=== PATIENT | female | born 1935 | race Caucasian/White ===

== ENCOUNTER → 2017-07-26 | Outpatient (CLI) | payer MEDICARE, OTHER, SELFPAY | PROVIDERS: Visit Provider Family Medicine | DX: Z12.2 Encounter for screening for malignant neoplasm of respiratory organs; Z87.891 Personal history of nicotine dependence ==

== ENCOUNTER → 2017-12-01 13:48 | Outpatient (CLI) | payer MEDICARE, OTHER, SELFPAY ==
--- NOTE | 2017-12-01 13:57 | XR_ITS ---
EXAM: XR thoracic spine 3V HISTORY: ITS.REASON: BILAT BACK PAIN COMPARISON: None FINDINGS: No fracture or dislocation. Mild multilevel degenerative disc disease is present involving the mid thoracic spine with mild kyphosis. Small endplate osteophytes are noted. No lytic or blastic change evident. IMPRESSION: Mild thoracic spondylosis as described above
--- NOTE | 2017-12-01 13:57 | XR_ITS ---
EXAM: XR cervical spine 5V HISTORY: Neck pain ITS.REASON: BILAT BACK PAIN ORDERING PHYSICIAN: Kb Atkins MD PATIENT AGE: 82 years COMPARISON: None FINDINGS: Normal alignment. Degenerative disc disease C4-C5 C5-C6 and C6-C7 greatest at C5-C6. There are age or osteophytes at these levels as well. Mild foraminal narrowing on the left C5-6 and on the right at C4-5 and C5-C6. No fracture or dislocation. No lytic or blastic change. IMPRESSION: Cervical spondylosis with degenerative disc disease from C4 to C6 with mild foraminal narrowing at C5-6 on the left and C4-5 and C5-6 on the right
== END ==
PROVIDERS: PCP Family Medicine; Visit Provider Family Medicine
DX: M54.6 Pain in thoracic spine (principal); M54.2 Cervicalgia
CPT/HCPCS: 72050; 72072

== ENCOUNTER → 2018-08-09 09:36 | Outpatient (CLI) | payer MEDICARE, OTHER, SELFPAY ==
--- NOTE | 2018-08-09 09:41 | XR_ITS ---
XR knee RT 3V HISTORY: ITS.REASON: ACUTE RT KNEE PAIN ORDERING PHYSICIAN: Maria Fernanda Dee MD PATIENT AGE: 83 years COMPARISON: None FINDINGS: No fracture or dislocation. No lytic or blastic change. Normal mineralization. No significant arthritic changes evident. There is increased density in the suprapatellar region consistent with knee joint effusion. No other significant findings IMPRESSION: Suprapatellar effusion otherwise negative right knee
== END ==
PROVIDERS: PCP Family Medicine; Visit Provider Emergency Medicine
DX: M25.561 Pain in right knee (principal)
CPT/HCPCS: 73562

== ENCOUNTER 2018-08-13 09:04 | Observation (INO) ==
--- NOTE | 2018-08-13 09:32 | Emergency Department Note ---
[facility] – [place], [place] Disposition Clinical Impression: Pain Disposition: Still a Patient Condition on Discharge: Good Referrals: Kb Atkins MD [Primary Care Provider] - Medical Decision Making - Medical Records Medical records reviewed: Yes: I reviewed the patient's medical records. - Oscar Inquiry Pt receiving controlled substance: No Oscar was queried for this patient: No Vital Signs: 08/13/18 09:08 08/13/18 09:14 Temperature 97.8 F 97.8 F Temperature Source Oral Oral Pulse Rate [Left Radial] 87 87 Respiratory Rate 20 20 Blood Pressure [Right Arm] 155/65 H 155/65 H Blood Pressure Mean [Right Arm] 95 95 Blood Pressure Source [Right Arm] Automatic Cuff Automatic Cuff Blood Pressure Position [Right Arm] Sitting Sitting 02 Sat by Pulse Oximetry 96 96 Oxygen Delivery Method Room Air Orders (Tests/Meds): ED MEDICATIONS Discontinued Medications Generic Name Dose Route Start Last Admin Trade Name Freq PRN Reason Stop Dose Admin Methylprednisolone Sodium Succinate 60 mg 08/13/18 09:58 08/13/18 10:11 Solu-Medrol 125mg/2ml Vial IM 08/13/18 09:59 60 mg ONCE ONE Administration ORDERS Category Date Time Status XR lumbar spine min 4V Stat Exams 08/13/18 09:27 Taken - Reevaluation(s) Time: 09:35 Reevaluation #1: Patient initially was refusing xrays and requesting muscle relaxer shot and pain shot, patient educated that we needed lumbar xray due to location of pain and age to inspect rule out compression fracture in lumbar region. Patient finally agreed to have xray. Patient reports that she is not able to take Ibuprofen and allergic to Orphenadrine. State that she seen Dr Potts on Tuesday and had multiple xrays done and a cortisone shot in her knee and then this pain started after her appointment with him Denies falling, denies known injury consulted with Dr Sinclair and he advised get lumbar xray and give 60mg of SoluMedrol and he would come to [facility] and see patient Time: 09:40 Reevaluation #3: Daughter accompanied patient cursing at staff and yelling at mother Daughter demanding Lortab or other medication for her mother Advised her again that ER physician was coming to see patient after she returned for xray and then order m edication as appropriate. Daughter still yelling and cursing awaiting patient to return from xray and Dr Sinclair to check patient Time reevaluation 3: 10:19 Reevaluation #2: Patient was given Steroid injection as recommended by Dr Sinclair, and he is at bedside, patient crying and saying her leg hurts worse therefore he elected to have patient transferred to ER for further treatment and evaluation for pain [facility] – [place], [place] HPI - General Stated complaint: back drawing Time Seen by Provider: 08/13/18 09:29 Mode of Arrival: Wheelchair Source of Information: Relative Limitations: Physical Limitations Description of Symptoms (Recalled from Triage Doc. by RN): Patient reports that she was working in the yard and now her back is hurting her. HEENT Symptoms (Recalled from RN notes): No Resp Symptoms (Recalled from RN notes): No Skin Symptoms (Recalled from RN notes): No MS Symptoms (Recalled from RN notes): Yes (back pain that radiates down her leg) Functional Status (Recalled from RN notes): f/a - History of Present Illness Provider Complaint: Patient states that she was outside working in the yard and then she started having pain in her buttock area that radiates down into her upper leg State that "feels like a muscle spasm" and feels like when it hits it draws her left leg up. State that she has been having this pain for about 4 days now State that pain is worse when she sits on that side or moves that leg Denies falling, denies known injury has history of back pain and sciatica - Related Data Home Medications Medication Instructions Recorded Confirmed Digoxin [Digitek] 125 mcg PO DAILY 04/22/18 04/22/18 Gabapentin [Gabapentin 100mg Cap] 100 mg PO BID 04/22/18 04/22/18 Glimepiride [Amaryl 2mg tablet] 2 mg PO DAILY 04/22/18 04/22/18 Rivaroxaban [Xarelto] 20 mg PO DAILY 04/22/18 04/22/18 Sitagliptin Phosphate [Januvia] 100 mg PO DAILY 04/22/18 04/22/18 Methocarbamol [Robaxin 750mg Tab] 750 mg PO BID 08/13/18 Allergies Allergy/AdvReac Type Severity Reaction Status Date / Time orphenadrine [From NORFLEX] Allergy Unknown Verified 04/22/18 10:58 tetanus toxoid, adsorbed Allergy Unknown Verified 04/22/18 10:58 [TETANUS TOXOID, ADSORBED] - Worker's Comp Is this a Worker's Comp case?: No [facility] History I have reviewed the patient's past medical history: Yes Medical History: Reports:: Diabetes Mellitus Type 2 Denies:: Diabetes Mellitus Type 1 - Social History Smoking Status: Current every day smoker Tobacco Type: cigarettes Alcohol Intake: never - Psychiatric History Expresses thoughts of harming self/others: None Suicide Plan Description: No Plan ROS Obtained: Yes All systems reviewed & no additional complaints, Yes Systems reviewed as appropriate & no additional complaints - Musculoskeletal Comments: Pain on left side of buttock that radiates down left leg, reports spasmic like pain and when it starts feels like it "draws" her leg up - Allergic/Immunologic Comments: Pain in left hip area that radiates down into her left upper leg and feels "spasmic" denies bowel or bladder involvement Physical Exam - General General appearance: alert, in no apparent distress - Respiratory Respiratory exam: Present: normal lung sounds bilaterally. Absent: respiratory distress - Cardiovascular Cardiovascular exam: Present: regular rate, normal rhythm. Absent: JVD - Abdominal Exam Abdominal exam: Present: soft, normal bowel sounds. Absent: distention, tenderness, guarding - Back Exam Back exam: Present: muscle spasm, sciatic notch tenderness (L) Back 1 view image: 1 - Reports spasm like pain in her left buttock area that radiates down leg, denies issues with bowel or bladder, reports history of sciatica pain Comment: Patient denies injury, describes pain as spasm like pain in left buttock area that radiates down left leg, pain worsened with movement, sitting or laying on that side. Patient started after she worked in her yard 4 days ago - Neurological Exam Neurological exam: Present: alert, oriented X3
--- NOTE | 2018-08-13 10:28 | Emergency Department Note ---
ED Disposition Clinical Impression: Pain, DJD (degenerative joint disease), lumbar, Sciatica, Leucocytosis, UTI (urinary tract infection) Disposition: Still a Patient Condition on Discharge: Fair Referrals: Kb Atkins MD [Primary Care Provider] - - Critical Care Critical Care Time: No Attestation: On 08/13/18, the high probability of a clinically significant, sudden or life threatening deterioration of the following system(s) required my full and direct attention, intervention and personal management. The time I documented below is in addition to time spent performing reported procedures but includes the following listed in this critical care notation. Medical Decision Making - Oscar Inquiry Pt receiving controlled substance: No Oscar was queried for this patient: No Vital Signs: 08/13/18 09:08 08/13/18 09:14 08/13/18 10:22 Temperature 97.8 F 97.8 F 98.8 F Temperature Source Oral Oral Oral Pulse Rate [Left Radial] 87 87 86 Respiratory Rate 20 20 20 Blood Pressure [Right Arm] 155/65 H 155/65 H 174/86 H Blood Pressure Mean [Right Arm] 95 95 115 Blood Pressure Source [Right Arm] Automatic Cuff Automatic Cuff Automatic Cuff Blood Pressure Position [Right Arm] Sitting Sitting Sitting 02 Sat by Pulse Oximetry 96 96 97 Oxygen Delivery Method Room Air Room Air 08/13/18 11:32 Temperature Temperature Source Pulse Rate [Left Radial] 81 Respiratory Rate Blood Pressure [Right Arm] 155/80 H Blood Pressure Mean [Right Arm] 105 Blood Pressure Source [Right Arm] Automatic Cuff Blood Pressure Position [Right Arm] Supine 02 Sat by Pulse Oximetry 96 Oxygen Delivery Method Room Air - Lab Data Lab Results 08/13/18 10:35: WBC 15.1 H, RBC 4.57, Hgb 13.2, Hct 41.6, MCV 91.0, MCH 28.9, MCHC 31.8, RDW 14.3, Plt Count 319, MPV 7.0 L, Neut % (Auto) 55.3, Lymph % (Auto) 34.4, Bullock % (Auto) 8.4, Eos % (Auto) 1.3, Baso % (Auto) 0.6, Neut # (Auto) 8.3 H, Lymph # (Auto) 5.2 H, Bullock # (Auto) 1.3 H, Eos # (Auto) 0.2, Baso # (Auto) 0.1, Total Counted 100, Neutrophils % (Manual) 51, Lymphocytes % (Manual) 35, Monocytes % (Manual) 13 H, Eosinophils % (Manual) 1, Platelet Estimate Normal, RBC Morphology Normal 08/13/18 10:35: PT 9.9, INR 0.96, APTT 24.2 08/13/18 10:35: Sodium 139, Potassium 4.3, Chloride 103, Carbon Dioxide 26, Anion Gap 14.3, BUN 19 H, Creatinine 0.74, Estimated Creat Clear 35, Estimated GFR 75, Est GFR ( Amer) 91, Glucose 214 H, Calcium 9.3, Total Bilirubin 0.4, AST 11 L, ALT 19, Alkaline Phosphatase 82, Total Protein 7.9, Albumin 3.7, Globulin 4.2 H, Albumin/Globulin Ratio 0.9 L, Digoxin < 0.20 L 08/13/18 11:25: Urine Color Yellow, Urine Appearance Sl cloudy, Urine pH 6.0, Ur Specific [place] 1.020, Urine Protein Negative, Urine Glucose (UA) 1+, Urine Ketones Negative, Urine Blood 2+, Urine Nitrate Negative, Urine Bilirubin Negative, Urine Urobilinogen 0.2, Ur Leukocyte Esterase 1+ A, Urine RBC 10-20, Urine WBC 5-10, Ur Squamous Epith Cells 10-20, Urine Bacteria 2+ Result diagrams: 08/13/18 10:35 08/13/18 10:35 Orders (Tests/Meds): ED MEDICATIONS Discontinued Medications Generic Name Dose Route Start Last Admin Trade Name Cecilia PRN Reason Stop Dose Admin Methylprednisolone Sodium Succinate 60 mg 08/13/18 09:58 08/13/18 10:11 Solu-Medrol 125mg/2ml Vial IM 08/13/18 09:59 60 mg ONCE ONE Administration Morphine Sulfate 1 mg 08/13/18 10:28 08/13/18 11:18 Morphine 2mg/Ml Syringe IV 08/13/18 10:29 1 mg ONCE ONE Administration Morphine Sulfate 1 mg 08/13/18 11:14 08/13/18 10:35 Morphine 2mg/Ml Syringe IV 08/13/18 11:15 1 mg ONCE ONE Administration Ondansetron HCl 4 mg 08/13/18 11:14 08/13/18 10:35 Zofran 4mg/2ml Vial IV 08/13/18 11:15 4 mg ONCE ONE Administration ORDERS Category Date Time Status UA [Urinalysis and Microscopic] Stat Lab 08/13/18 11:25 Ordered Urine Culture Stat Micro 08/13/18 11:25 Received - Radiology Data #1 Image(s): L-Spine Image Reviewed: Yes I reviewed the patient's radiology image Preliminary Findings: Abnormal Luminary x-ray of the lumbar spine: DJD postop changes no acute fracture. final read below: IMPRESSION: No acute findings lumbar spine. Vertebral bodies intact Mild degenerative changes: Borderline/Mild disc space narrowing posteriorly at L2/3. It Moderate facet hypertrophy L5/S1 and less evident L4/5 Calcifications at the superior medial aspect right kidney most likely vascular. Doubt difficult to exclude tiny renal calculi here . Medical Decision Narrative: I reviewed the patient's x-ray report. White count is elevated with no shift. Her urine is positive for UTI addition to most recent steroid injection. The patient continues to complain of pain despite of receiving morphine. Her daught er informed me that she had past medical history of opiate dependence. 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 I discussed this complicated past medical history with Dr. jefferson who is on-call for Dr. Atkins. We agreed to admit the patient for IV steroids and intermit tent use of morphine for pain control. Start on IV antibiotics for a UTI. Repeat labs in the morning and consult Dr. Garcia the pain specialist. Back Pain HPI - General Stated Complaint: back drawing Time Seen by Provider: 08/13/18 09:29 Mode of Arrival: Wheelchair Source of Information: Relative Limitations: Physical Limitations Description of Symptoms (Recalled from ER Triage Doc. by RN): Patient reports that she was working in the yard and now her back is hurting her. - History of Present Illness HPI Narrative: 83 years old white female smoker with history of multiple medical problems including cervical cancer that was removed in 2007. Gallbladder removal with complications including atrial fibrillation's diabetes mellitus currently on anticoagulations alert to and oral hypoglycemic medication. She uses digoxin. The patient had prior low back injury 1960s. 4 days ago she was working in her flower bed digging with a shovel "although she was told by her daughter not to do so" due to prior pack issues. Since then she has been experiencing sharp lower back pain radiating to the left buttock and into the left thigh above the knee. There is no numbness no tingling no weakness no loss of urine or bowel control. Patient has multiple allergies ca nnot use ibuprofen pain progressively gotten worse unable to walk because of pain so she was brought by her daughter to the ED. initially she refused x-ray but eventually we obtained an x-ray of the lumbar spine with no acute findings, she has DJD atherosclerosis and postop changes. She received Solu-Medrol injection in the left buttock with worsening of her pain. She was moved from the urgent care to the ED for better pain control. Examination in the ER revealed no weakness no loss of sensations strong bilateral dorsalis pedis pulsation and femoral pulsations equal symmetrical. MD Complaint: back pain Onset (ago): day(s) (4 days.) Duration: constant Similar Symptoms Previously: Yes Location: lumbar spine Severity: severe Quality: sharp Radiation: left leg Severity scale (1-10): 10 Relieving factors: immobilization Exacerbating factors: movement Context: other (While gardening. ) Associated symptoms: denies other symptoms Pertinent Issues R/T Back Pain: Cancer, Prior Trauma Treatments prior to arrival: acetaminophen - Related Data Home Medications Medication Instructions Recorded Confirmed Digoxin [Digitek] 125 mcg PO DAILY 04/22/18 08/13/18 Gabapentin [Gabapentin 100mg Cap] 100 mg PO BID 04/22/18 08/13/18 Glimepiride [Amaryl 2mg tablet] 2 mg PO DAILY 04/22/18 08/13/18 Rivaroxaban [Xarelto] 20 mg PO DAILY 04/22/18 08/13/18 Sitagliptin Phosphate [Januvia] 100 mg PO DAILY 04/22/18 08/13/18 Methocarbamol [Robaxin 750mg Tab] 750 mg PO BID 08/13/18 08/13/18 Allergies Allergy/AdvReac Type Severity Reaction Status Date / Time orphenadrine [From NORFLEX] Allergy Unknown Verified 04/22/18 10:58 tetanus toxoid, adsorbed Allergy Unknown Verified 04/22/18 10:58 [TETANUS TOXOID, ADSORBED] [facility] History I have reviewed the patient's past medical history: Yes Medical History: Reports:: Diabetes Mellitus Type 2 Denies:: Diabetes Mellitus Type 1 - Social History Smoking Status: Current every day smoker Tobacco Type: cigarettes Alcohol Intake: never - Psychiatric History Expresses thoughts of harming self/others: None Suicide Plan Description: No Plan ROS Obtained: Yes All systems reviewed & no additional complaints Physical Exam - General General appearance: alert, in no apparent distress - Head Head exam: atraumatic, normocephalic, normal inspection - Eye Eye exam: Present: normal appearance, PERRL, EOMI. Absent: scleral icterus, nystagmus, miosis - Neck Neck exam: Present: normal inspection, full ROM, trachea midline. Absent: meningismus, lymphadenopathy - Chest Chest inspection: Present: normal inspection, symmetric chest wall rise. Absent: tenderness - Respiratory Respiratory exam: Present: normal lung sounds bilaterally. Absent: respiratory distress - Cardiovascular Cardiovascular exam: Present: regular rate, normal rhythm, normal heart sounds. Absent: JVD - Abdominal Exam Abdominal exam: Present: soft, normal bowel sounds, other (Strong bilateral equal symmetrical femoral pulse.). Absent: distention, tenderness, guarding, rebound, rigidity, Collins's sign, tenderness at McBurney's Point - External exam: Present: normal external exam - Extremities Exam Extremities exam: Present: normal inspection, full ROM, normal capillary refill. Absent: calf tenderness - Back Exam Back exam: Present: normal inspection. Absent: tenderness, CVA tenderness (R), CVA tenderness (L) - Neurological Exam Neurological exam: Present: alert, oriented X3, CN II-XII intact, motor sensory deficit, reflexes normal - Psychiatric Psychiatric exam: Present: normal affect, normal mood - Skin Skin exam: Present: warm, dry, intact, normal color - Lymphatic Lymphatic Findings: no adenopathy
[2018-08-13 10:51] LABS: Basophils # 0.1 K/mm3 (0-0.2); Basophils % 0.6 % (0.1-2.0); Eosinophils # 0.2 K/mm3 (0.0-0.4); Eosinophils % 1.3 % (0.1-12.0); Hematocrit 41.6 % (37.0-47.0); Hemoglobin 13.2 g/dL (12.2-16.2); Lymphocytes # 5.2 K/mm3 (0.7-4.5); Lymphocytes % 34.4 K/mm3 (10-50); Mean Corpuscular HGB Conc 31.8 g/dL (31.8-35.4); Mean Corpuscular Hemoglobin 28.9 pg (27.0-31.2); Monocytes # 1.3 K/mm3 (0.1-1.0); Monocytes % 8.4 % (1.7-9.3); Neutrophils # 8.3 K/mm3 (1.8-7.8); Neutrophils % 55.3 % (37.0-80.0); Platelet Count 319 K/mm3 (142-424); Red Blood Count 4.57 M/mm3 (4.20-5.40); Red Cell Distribution Width 14.3 % (11.5-17.5); White Blood Count 15.1 K/mm3 (4.8-10.8)
[2018-08-13 10:57] LABS: Activated Partial Thrombo Time 24.2 seconds (23.6-34.0); INR 0.96 (0.9-1.1); Prothrombin Time 9.9 seconds (9.4-11.8)
[2018-08-13 11:06] LABS: Alanine Aminotransferase 19 U/L (12-78); Albumin Level 3.7 gm/dL (3.4-5.0); Albumin/Globulin Ratio 0.9 (1.1-1.8); Alkaline Phosphatase 82 U/L (46-116); Anion Gap 14.3 mEq/L (5-15); Aspartate Amino Transferase 11 U/L (15-37); Bilirubin,Total 0.4 mg/dL (0.2-1.0); Blood Urea Nitrogen 19 mg/dL (7-18); Calcium 9.3 mg/dL (8.5-10.1); Carbon Dioxide 26 mmol/L (21.0-32.0); Chloride 103 mmol/L (98-107); Eosinophils % 1 % (0-3); Globulin 4.2 gm/dl (1.3-3.2); Glucose 214 mg/dL (74-106); Lymphocytes % 35 % (10-50); Monocytes % 13 % (2-9); Neutrophils % 51 % (42-76); Potassium 4.3 mmoL/L (3.5-5.1); RBC Morphology Normal; Sodium 139 mmol/L (136-145); Total Cells Counted 100; Total Protein,Serum 7.9 gm/dL (6.4-8.2)
[2018-08-13 11:08] LABS: Digoxin < 0.20 ng/mL (1.15-2.56)
[2018-08-13 11:34] LABS: Microscopic, Urine URINE MICROSCOPIC (MICROSCOPIC)
[2018-08-13 11:36] LABS: Appearance,Urine SL CLOUDY (Clear); Bilirubin,Urine Negative (Negative); Blood, Urine 2+ (Negative); Color,Urine YELLOW (Yellow); Glucose,Urine (UA) 1+ (Negative); Ketones,Urine Negative (Negative); Leukocyte Esterase,Urine 1+ (Negative); Protein,Urine Negative (Negative); Urobilinogen,Urine 0.2 EU/dl (0.2)
[2018-08-13 11:46] LABS: Bacteria,Urine 2+ /lpf
--- NOTE | 2018-08-13 13:25 | Pharmacy Consult Notes ---
[facility] Pharmacy VTE Monitoring - Patient Demographics Admission date: 08/13/18 Report Date: 08/13/18 Time: 13:24 Allergies/Adverse Reactions: Patient Allergies orphenadrine [From NORFLEX] Allergy (Unknown, Verified 04/22/18 10:58) tetanus toxoid, adsorbed [TETANUS TOXOID, ADSORBED] Allergy (Unknown, Verified 04/22/18 10:58) Height: 1.57 m Weight: 51.766 kg Patient Problems: Current Active Problems Pain (Acute) DJD (degenerative joint disease), lumbar (Acute) Sciatica (Acute) Leucocytosis (Acute) UTI (urinary tract infection) (Acute) - VTE Risk Labs: VTE Related Lab Results Hgb 13.2 g/dL (12.2-16.2) 08/13/18 10:35 Hct 41.6 % (37.0-47.0) 08/13/18 10:35 Plt Count 319 K/mm3 (142-424) 08/13/18 10:35 PT 9.9 seconds (9.4-11.8) 08/13/18 10:35 INR 0.96 (0.9-1.1) 08/13/18 10:35 APTT 24.2 seconds (23.6-34.0) 08/13/18 10:35 BUN 19 mg/dL (7-18) H 08/13/18 10:35 Creatinine 0.74 mg/dL (0.55-1.02) 08/13/18 10:35 Estimated Creat Clear 35 mL/min (0-300) 08/13/18 10:35 VTE Score: 4 VTE Risk Level: Low Risk Clinical Trial Participant: No - Prophylaxis VTE Prophylaxis Ordered?: Yes Types of VTE Prophylaxis: TEDS Knee High
[2018-08-14 07:06] LABS: Basophils % 0.1 % (0.1-2.0); Eosinophils % 0.1 % (0.1-12.0); Hematocrit 38.1 % (37.0-47.0); Hemoglobin 12.2 g/dL (12.2-16.2); Lymphocytes # 2.4 K/mm3 (0.7-4.5); Lymphocytes % 18.9 K/mm3 (10-50); Mean Corpuscular HGB Conc 32.1 g/dL (31.8-35.4); Mean Corpuscular Hemoglobin 28.9 pg (27.0-31.2); Mean Corpuscular Volume 90.1 fl (81-99); Mean Platelet Volume 7.4 fl (7.4-10.4); Monocytes # 0.9 K/mm3 (0.1-1.0); Monocytes % 6.6 % (1.7-9.3); Neutrophils # 9.6 K/mm3 (1.8-7.8); Neutrophils % 74.4 % (37.0-80.0); Platelet Count 312 K/mm3 (142-424); Red Blood Count 4.23 M/mm3 (4.20-5.40); Red Cell Distribution Width 14.1 % (11.5-17.5); White Blood Count 12.9 K/mm3 (4.8-10.8)
[2018-08-14 07:17] LABS: Anion Gap 14.1 mEq/L (5-15); Calcium 9.3 mg/dL (8.5-10.1); Potassium 4.1 mmoL/L (3.5-5.1)
--- NOTE | 2018-08-14 09:13 | H&P/Discharge Summary ---
<Collette Clarke - Last Filed: 08/14/18 09:06> General - General Admission date:: 08/13/18 Discharge date: 08/14/18 *Admission Date: 08/13/18 *Chief complaint: Back pain *History of present illness: Ms. Wellington is an 83-year-old female patient of Dr. Valadez who presented to the emergency room with severe back pain. She has a history of low back pain, endometrial cancer, tobacco abuse, COPD, and type 2 diabetes mellitus. Patient states that she worked in her yard last week after which her back did began to hurt. Her pain increased to the point yesterday she came to the emergency room. She was unable to move or walk because the pain was so severe. Patient has been voiding without difficulties and has some hematuria. She denies fever, nausea and vomiting and has been eating as usual. This a.m. at time of exam patient states she is just sore but has no further pain. She is eating her breakfast. She has walked to the bathroom. [facility] History Medical History: Reports:: Atrial Fibrillation, Cancer, Chronic Obstructive Pulmonary Disease (COPD), Cerebrovascular Accident, Diabetes Mellitus Type 2, Hypertension Denies:: Diabetes Mellitus Type 1, MRSA Other Medical History: Reports: Arthritis Laterality Cases: Right: Other Other Surgeries: Yes: Cholecystectomy (With small bowel resection.), Hysterectomy-Total Amputation: No Comment: Hemorrhoidectomy 1972; right rotator cuff surgery 2009; left knee scope 2010; - *Social History Educational Level: Attended High School Smoking Status: Current every day smoker Tobacco Type: cigarettes #Yrs smoked (if former smoker): 61 Alcohol Intake: never Occupational Status: retired Housing: house Household Members: none - Psychiatric History Expresses thoughts of harming self/others: None Suicide Plan Description: No Plan *Family Hx:: Coronary Artery Disease, Diabetes, Heart Attack, Hypertension Review of Systems - Constitutional Denies body ache(s), Denies lack of energy - ENT Denies ear pain, Denies sore throat - *Cardiovascular Denies chest pain, Denies rapid, pounding, or irregular heartbeat - *Respiratory Denies chest congestion, Denies cough - *Gastrointestinal Reports constipation, Denies abdominal pain, Denies change in bowel habits - *Genitourinary Reports blood in urine, Denies painful urination - *Musculoskeletal Denies abnormal walking - *Neurologic Denies behavioral changes, Denies confusion, Denies headache(s) Exam Vital signs and Labs for Last 24 Hours: Temp Pulse Resp BP Pulse Ox 98.3 F 81 18 119/50 L 96 08/14/18 08:00 08/14/18 08:00 08/14/18 08:00 08/14/18 08:00 08/14/18 08:00 Laboratory Results - last 24 hr 08/13/18 10:35: WBC 15.1 H, RBC 4.57, Hgb 13.2, Hct 41.6, MCV 91.0, MCH 28.9, MCHC 31.8, RDW 14.3, Plt Count 319, MPV 7.0 L, Neut % (Auto) 55.3, Lymph % (Auto) 34.4, [place] % (Auto) 8.4, Eos % (Auto) 1.3, Baso % (Auto) 0.6, Neut # (Auto) 8.3 H, Lymph # (Auto) 5.2 H, [place] # (Auto) 1.3 H, Eos # (Auto) 0.2, Baso # (Auto) 0.1, Total Counted 100, Neutrophils % (Manual) 51, Lymphocytes % (Manual) 35, Monocytes % (Manual) 13 H, Eosinophils % (Manual) 1, Platelet Estimate Normal, RBC Morphology Normal 08/13/18 10:35: PT 9.9, INR 0.96, APTT 24.2 08/13/18 10:35: Sodium 139, Potassium 4.3, Chloride 103, Carbon Dioxide 26, Anion Gap 14.3, BUN 19 H, Creatinine 0.74, Estimated Creat Clear 35, Estimated GFR 75, Est GFR ( Amer) 91, Glucose 214 H, Calcium 9.3, Total Bilirubin 0.4, AST 11 L, ALT 19, Alkaline Phosphatase 82, Total Protein 7.9, Albumin 3.7, Globulin 4.2 H, Albumin/Globulin Ratio 0.9 L, Digoxin < 0.20 L 08/13/18 11:25: Urine Color Yellow, Urine Appearance Sl cloudy, Urine pH 6.0, Ur Specific [place] 1.020, Urine Protein Negative, Urine Glucose (UA) 1+, Urine Ketones Negative, Urine Blood 2+, Urine Nitrate Negative, Urine Bilirubin Negative, Urine Urobilinogen 0.2, Ur Leukocyte Esterase 1+ A, Urine RBC 10-20, Urine WBC 5-10, Ur Squamous Epith Cells 10-20, Urine Bacteria 2+ 08/13/18 21:09: POC Glucose 288 H 08/14/18 06:11: WBC 12.9 H, RBC 4.23, Hgb 12.2, Hct 38.1, MCV 90.1, MCH 28.9, MCHC 32.1, RDW 14.1, Plt Count 312, MPV 7.4, Neut % (Auto) 74.4, Lymph % (Auto) 18.9, [place] % (Auto) 6.6, Eos % (Auto) 0.1, Baso % (Auto) 0.1, Neut # (Auto) 9.6 H, Lymph # (Auto) 2.4, [place] # (Auto) 0.9, Eos # (Auto) 0.0, Baso # (Auto) 0.0 08/14/18 06:11: Sodium 139, Potassium 4.1, Chloride 104, Carbon Dioxide 25, Anion Gap 14.1, BUN 21 H, Creatinine 0.79, Estimated Creat Clear 36, Estimated GFR 70, Est GFR ( Amer) 85, Glucose 198 H, Calcium 9.3 08/14/18 06:26: POC Glucose 183 H I & O for Last 24 hours: Intake & Output 08/11/18 08/12/18 08/13/18 08/14/18 11:59 11:59 11:59 11:59 Intake Total Output Total 400 / 400 Balance -390 / -390 Weight 112 lb 114 lb 2 oz Microbiology Reports for the Last 24 Hours: Microbiology 08/13/18 11:25 Urine,Clean Catch Urine Culture - Preliminary Radiology Reports for the Last 24 Hours: 08/13/2018 x-ray of lumbosacral area IMPRESSION: No acute findings lumbar spine. Vertebral bodies intact Mild degenerative changes: Borderline/Mild disc space narrowing posteriorly at L2/3. It Moderate facet hypertrophy L5/S1 and less evident L4/5 Calcifications at the superior medial aspect right kidney most likely vascular. Doubt difficult to exclude tiny renal calculi here . - Constitutional no acute distress Comments: Lying comfortable in the bed - *Routine HEENT Exam Head: Present: normocephalic, atraumatic Eye: Present: PERRL. Absent: conjunctival icterus, scleral injection ENT: Present: mucous membranes moist, oropharynx clear - *Routine Neck Exam Present: supple. Absent: carotid bruit, lymphadenopathy, thyromegaly - *Routine Respiratory Exam Comments: Rare wheeze - *Routine Cardiovascular Exam Present: RRR - *Routine Abdominal Exam Present: soft, normoactive bowel sounds. Absent: tenderness, distended, guarding - *Routine Extremities Exam Absent: edema, calf tenderness - Routine Back/Spine/Pelvis Exam Back/Spine: Absent: CVA tenderness, paraspinal tenderness, vertebral tenderness, muscle spasm Hospital Course Hospital Course: After being started on steroids and morphine the pain subsided with remaining soreness. The morning for admission she was able to eat, walk to the bathroom without problems, and move without difficulty. She was found to have a urinary tract infection and will be started on antibiotics for this. Patient was stable to be discharged home. She will be treated on antibiotic and pain medicine. Follow-up will be with Dr. Atkins. Results Labs on day of discharge: Labs from last 24 hours 08/14/18 08/14/18 08/14/18 06:26 06:11 06:11 WBC 12.9 H RBC 4.23 Hgb 12.2 Hct 38.1 MCV 90.1 MCH 28.9 MCHC 32.1 RDW 14.1 Plt Count 312 MPV 7.4 Neut % (Auto) 74.4 Lymph % (Auto) 18.9 [place] % (Auto) 6.6 Eos % (Auto) 0.1 Baso % (Auto) 0.1 Neut # (Auto) 9.6 H Lymph # (Auto) 2.4 [place] # (Auto) 0.9 Eos # (Auto) 0.0 Baso # (Auto) 0.0 Total Counted Neutrophils % (Manual) Lymphocytes % (Manual) Monocytes % (Manual) Eosinophils % (Manual) Platelet Estimate RBC Morphology PT INR APTT Sodium 139 Potassium 4.1 Chloride 104 Carbon Dioxide 25 Anion Gap 14.1 BUN 21 H Creatinine 0.79 Estimated Creat Clear 36 Estimated GFR 70 Est GFR ( Amer) 85 Glucose 198 H POC Glucose 183 H Calcium 9.3 Total Bilirubin AST ALT Alkaline Phosphatase Total Protein Albumin Globulin Albumin/Globulin Ratio Urine Color Urine Appearance Urine pH Ur Specific [place] Urine Protein Urine Glucose (UA) Urine Ketones Urine Blood Urine Nitrate Urine Bilirubin Urine Urobilinogen Ur Leukocyte Esterase Urine RBC Urine WBC Ur Squamous Epith Cells Urine Bacteria Digoxin 08/13/18 08/13/18 08/13/18 21:09 11:25 10:35 WBC RBC Hgb Hct MCV MCH MCHC RDW Plt Count MPV Neut % (Auto) Lymph % (Auto) [place] % (Auto) Eos % (Auto) Baso % (Auto) Neut # (Auto) Lymph # (Auto) [place] # (Auto) Eos # (Auto) Baso # (Auto) Total Counted Neutrophils % (Manual) Lymphocytes % (Manual) Monocytes % (Manual) Eosinophils % (Manual) Platelet Estimate RBC Morphology PT INR APTT Sodium 139 Potassium 4.3 Chloride 103 Carbon Dioxide 26 Anion Gap 14.3 BUN 19 H Creatinine 0.74 Estimated Creat Clear 35 Estimated GFR 75 Est GFR ( Amer) 91 Glucose 214 H POC Glucose 288 H Calcium 9.3 Total Bilirubin 0.4 AST 11 L ALT 19 Alkaline Phosphatase 82 Total Protein 7.9 Albumin 3.7 Globulin 4.2 H Albumin/Globulin Ratio 0.9 L Urine Color Yellow Urine Appearance Sl cloudy Urine pH 6.0 Ur Specific [place] 1.020 Urine Protein Negative Urine Glucose (UA) 1+ Urine Ketones Negative Urine Blood 2+ Urine Nitrate Negative Urine Bilirubin Negative Urine Urobilinogen 0.2 Ur Leukocyte Esterase 1+ A Urine RBC 10-20 Urine WBC 5-10 Ur Squamous Epith Cells 10-20 Urine Bacteria 2+ Digoxin < 0.20 L 08/13/18 08/13/18 10:35 10:35 WBC 15.1 H RBC 4.57 Hgb 13.2 Hct 41.6 MCV 91.0 MCH 28.9 MCHC 31.8 RDW 14.3 Plt Count 319 MPV 7.0 L Neut % (Auto) 55.3 Lymph % (Auto) 34.4 [place] % (Auto) 8.4 Eos % (Auto) 1.3 Baso % (Auto) 0.6 Neut # (Auto) 8.3 H Lymph # (Auto) 5.2 H [place] # (Auto) 1.3 H Eos # (Auto) 0.2 Baso # (Auto) 0.1 Total Counted 100 Neutrophils % (Manual) 51 Lymphocytes % (Manual) 35 Monocytes % (Manual) 13 H Eosinophils % (Manual) 1 Platelet Estimate Normal RBC Morphology Normal PT 9.9 INR 0.96 APTT 24.2 Sodium Potassium Chloride Carbon Dioxide Anion Gap BUN Creatinine Estimated Creat Clear Estimated GFR Est GFR ( Amer) Glucose POC Glucose Calcium Total Bilirubin AST ALT Alkaline Phosphatase Total Protein Albumin Globulin Albumin/Globulin Ratio Urine Color Urine Appearance Urine pH Ur Specific [place] Urine Protein Urine Glucose (UA) Urine Ketones Urine Blood Urine Nitrate Urine Bilirubin Urine Urobilinogen Ur Leukocyte Esterase Urine RBC Urine WBC Ur Squamous Epith Cells Urine Bacteria Digoxin Preliminary micro results at discharge 08/13/18 11:25 Urine Culture - Preliminary Urine,Clean Catch DS: Diagnosis - Discharge Diagnosis (1) Severe low back pain Status: Acute (2) DJD (degenerative joint disease), lumbar Status: Chronic (3) Sciatica Status: Acute (4) UTI (urinary tract infection) Status: Acute Discharge Medications - Medications for Discharge Home Medication List at Discharge: New RX: Tramadol HCl [Ultram 50mg tablet] 50 mg PO Q6HP PRN #12 tab PRN Reason: Moderate To Severe Pain Ciprofloxacin HCl [Cipro 250mg Tab] 250 mg PO BID #14 tab RX: predniSONE [Deltasone 20mg tablet] 20 mg PO BID #10 tab Continue RX: Sitagliptin Phosphate [Januvia 100mg tablet] 100 mg PO DAILY RX: Rivaroxaban [Xarelto 20mg Tablet] 20 mg PO DAILY RX: Glimepiride [Amaryl 2mg tablet] 2 mg PO DAILY RX: Gabapentin [Gabapentin 100mg Cap] 200 mg PO BID RX: Digoxin [Digitek] 125 mcg PO DAILY RX: Methocarbamol [Robaxin 750mg Tab] 750 mg PO BID RX: dilTIAZem HCl [Diltiazem 240mg 24Hr ER Cap] 240 mg PO DAILY RX: Citalopram Hydrobromide [Citalopram HBr] 20 mg PO DAILY Disposition Disposition: Home, Self-Care <Kb Atkins - Last Filed: 08/14/18 12:18> General - General Admission date:: 08/13/18 Exam Vital signs and Labs for Last 24 Hours: Temp Pulse Resp BP Pulse Ox 98.3 F 81 18 119/50 L 96 08/14/18 08:00 08/14/18 09:41 08/14/18 08:00 08/14/18 08:00 08/14/18 08:00 Laboratory Results - last 24 hr 08/13/18 21:09: POC Glucose 288 H 08/14/18 06:11: WBC 12.9 H, RBC 4.23, Hgb 12.2, Hct 38.1, MCV 90.1, MCH 28.9, MCHC 32.1, RDW 14.1, Plt Count 312, MPV 7.4, Neut % (Auto) 74.4, Lymph % (Auto) 18.9, [place] % (Auto) 6.6, Eos % (Auto) 0.1, Baso % (Auto) 0.1, Neut # (Auto) 9.6 H, Lymph # (Auto) 2.4, [place] # (Auto) 0.9, Eos # (Auto) 0.0, Baso # (Auto) 0.0 08/14/18 06:11: Sodium 139, Potassium 4.1, Chloride 104, Carbon Dioxide 25, Anion Gap 14.1, BUN 21 H, Creatinine 0.79, Estimated Creat Clear 36, Estimated GFR 70, Est GFR ( Amer) 85, Glucose 198 H, Calcium 9.3 08/14/18 06:26: POC Glucose 183 H I & O for Last 24 hours: Intake & Output 08/12/18 08/13/18 08/14/18 08/15/18 11:59 11:59 11:59 11:59 Intake Total Output Total 400 / 400 Balance -390 / -390 Weight 112 lb 114 lb 2 oz Microbiology Reports for the Last 24 Hours: Microbiology 08/13/18 11:25 Urine,Clean Catch Urine Culture - Preliminary Hospital Course Hospital Course: Patient will be discharged home with Cipro for her UTI and Prednisone and Tramadol for her back pain. Results Labs on day of discharge: Labs from last 24 hours 08/14/18 08/14/18 08/14/18 06:26 06:11 06:11 WBC 12.9 H RBC 4.23 Hgb 12.2 Hct 38.1 MCV 90.1 MCH 28.9 MCHC 32.1 RDW 14.1 Plt Count 312 MPV 7.4 Neut % (Auto) 74.4 Lymph % (Auto) 18.9 [place] % (Auto) 6.6 Eos % (Auto) 0.1 Baso % (Auto) 0.1 Neut # (Auto) 9.6 H Lymph # (Auto) 2.4 [place] # (Auto) 0.9 Eos # (Auto) 0.0 Baso # (Auto) 0.0 Sodium 139 Potassium 4.1 Chloride 104 Carbon Dioxide 25 Anion Gap 14.1 BUN 21 H Creatinine 0.79 Estimated Creat Clear 36 Estimated GFR 70 Est GFR ( Amer) 85 Glucose 198 H POC Glucose 183 H Calcium 9.3 08/13/18 21:09 WBC RBC Hgb Hct MCV MCH MCHC RDW Plt Count MPV Neut % (Auto) Lymph % (Auto) [place] % (Auto) Eos % (Auto) Baso % (Auto) Neut # (Auto) Lymph # (Auto) [place] # (Auto) Eos # (Auto) Baso # (Auto) Sodium Potassium Chloride Carbon Dioxide Anion Gap BUN Creatinine Estimated Creat Clear Estimated GFR Est GFR ( Amer) Glucose POC Glucose 288 H Calcium Preliminary micro results at discharge 08/13/18 11:25 Urine Culture - Preliminary Urine,Clean Catch DS: Diagnosis - Discharge Diagnosis (1) Severe low back pain Status: Acute (2) DJD (degenerative joint disease), lumbar Status: Chronic (3) Sciatica Status: Acute (4) UTI (urinary tract infection) Status: Acute
== END 2018-08-14 10:07 | disposition home or self-care (01) ==
LOC: 2ND 09:04 → UTC 09:04 → 2ND 13:01
PROVIDERS: ADMIT Family Medicine; ATTEND Family Medicine
CPT/HCPCS: 36415; 72110; 80048; 80053; 80162; 81001; 82962; 85007; 85025; 85610; 85730; 87077; 87086; 96372; 96374; 96375; 96376; 99281; 99284; G0378; J2405

== ENCOUNTER → 2018-08-24 13:37 | Outpatient (CLI) | payer MEDICARE, SELFPAY ==
--- NOTE | 2018-08-24 13:39 | MR_ITS ---
MR lumbar spine wo con, MR 3-d myelogram/MRCP HISTORY: PT states low back pain, LT leg pain and burning. Symptoms X 2-3 weeks. Leg catches when walking. ITS.REASON: LUMBAGO W SCIATICA LT SIDE, DDD LUMBAR ORDERING PHYSICIAN: Kb Atkins MD PATIENT AGE: 83 years Comparison: X-RAY 08-13-18 TECHNIQUE: Standard multiplanar multiecho sequences are performed without contrast. 3-D MIP and myelographic images are also rendered and reviewed FINDINGS: There is normal alignment. The spinal cord ends at the T12-L1 level. T12-L1: Minimal bulging disc anteriorly and posteriorly without impingement. Small anterior osteophytes. L1-L2: Unremarkable. L2-L3: Mild facet and ligamentum flavum hypertrophic change with mild right-sided foraminal narrowing. L3-L4: Minimal bulging disc slightly eccentric toward the right with mild right foraminal narrowing. L4-L5: Concentric bulging disc. This is slightly eccentric toward the left. There is a small left paracentral disc herniation superior extrusion of the disc. This is causing left lateral recess narrowing and moderate to severe left-sided foraminal narrowing. The superiorly extruded disc is contributing to the foraminal and lateral recess narrowing with compression upon the exiting L4 nerve root. L5-S1: Unremarkable. IMPRESSION: 1. Bulging disc eccentric towards the left with a small left paracentral/foraminal disc herniation with superior extrusion causing narrowing of the left L4-L5 foramen and compression upon L4 nerve root. 2. Other areas of mild lumbar spondylosis as detailed above
== END ==
PROVIDERS: PCP Family Medicine; Visit Provider Family Medicine
DX: M54.42 Lumbago with sciatica, left side (principal); M51.36 Other intervertebral disc degeneration, lumbar region; M47.816 Spondylosis without myelopathy or radiculopathy, lumbar region
CPT/HCPCS: 72148; 76376

== ENCOUNTER → 2018-09-04 10:37 | Outpatient (POV) | payer MEDICARE, OTHER, SELFPAY ==
[2018-09-04 11:03] VITALS: BP 104/60; PULSE 84; RESP 18; O2SAT 97
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
== END ==
PROVIDERS: PCP Family Medicine; Visit Provider Clinical Nurse Specialist Family Health
DX: M47.26 Other spondylosis with radiculopathy, lumbar region (principal)
CPT/HCPCS: 99202

== ENCOUNTER 2018-09-29 10:00 | Outpatient (RCR) | payer MEDICARE, SELFPAY ==
--- NOTE | 2018-09-11 11:08 | HMH.PTOPEV ---
PT Outpatient Evaluation Rehab PT Outpatient Evaluation Start: 09/11/18 10:58 Freq: Status: Active Protocol: Document 09/11/18 10:58 SHONNA (Rec: 09/11/18 11:08 SHONNA [id number]) Electronically Signed By Jossue Villalba, PT 09/11/18 10:58 Outpatient Therapy Subjective History Subjective History Pt reports insidious onset L sided LBP with severe L LE s/s beginning ~ 6 weeks ago. Pt reports L LE radicular s/s from hip to foot at its worst, however reports slight improvement of s/s over the last 3-4 days. Pt reports LBP chronically, PMH OA, DM, CX. Chief Complaint Pain Paresthesia Weakness Symptom Type Ache Sharp Dull Burning Symptoms Aggravated By Bending/Stooping Physical Activity Walking Lifting Prior Functional Limitations Lifting Housework Current Functional Limitations Lifting Housework Standing Walking Symptom Description Constant but Variable Level of pain today (0-10) 7 Pain scale - at its best (0-10) 5 Pain scale - at its worst (0-10) 9 Lumbopelvic Eval Posture Thoracic Spine Posture Standing Position Neutral Lumbar Spine Posture Standing Position Neutral Assistive device Assistive Devices None / NA Gait Observation General Gait Pattern Observation Antalgic Gait Palapation tenderness left paraspinal tenderness Yes: 3/4 buttock tenderness Yes: 3/4 Lumbar/Sacral Palpation Findings Tenderness Accessory Movement T-spine Vertebrae Accessory Movements Central P/A [place] that Elicit Symptoms L4 right L5 right Range of Motion Lumbar Spine Active Flexion Range of 0-70 Motion (degrees) Lumbar Spine Active Extension Range of 0-20 Motion (degrees) Left Lumbar Spine Lateral Flexion Active 0-25 Range of Motion (degrees) Right Lumbar Spine Lateral Flexion 0-15 Active Range of Motion (degrees) Lumbar Spine ROM Limitations Pain Manual Muscle Test Right Knee Extension Strength Grade 5 Normal Knee Flexion Strength Grade 5 Normal Hip Flexion Strength Grade 5 Normal Extensor Hallucis Longus Strength Grade 5
== END 2018-09-29 10:05 | disposition home or self-care (01) ==
LOC: PT 10:00
PROVIDERS: Visit Provider Clinical Nurse Specialist Family Health
DX: M54.5 Low back pain (principal)
CPT/HCPCS: 97010; 97014; 97035; 97110; 97163; G0283

== ENCOUNTER → 2018-10-02 13:23 | Outpatient (POV) | payer MEDICARE, SELFPAY ==
[2018-10-02 13:46] VITALS: BP 143/67; PULSE 85; RESP 18; O2SAT 98; BMI 20.6
--- NOTE | 2018-10-02 14:56 | HMH.PAINSOAP ---
[facility] Pain Management SOAP Note Subjective:: Patient is a pleasant 83-year-old white female who presents today for follow-up. Patient is continuing her physical therapy. 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 Patient is currently on gabapentin. We will continue this. Patient is going to be seen by physical therapy. Patient is continuing this and states she is doing much better she rates her pain a 5 out of 10 today. We will give her some tramadol to help while she still in physical therapy. Patient is uninterested in any injective therapy at this time. ROS General: no recent weight change, no fever, no sleep disturbances Respiratory: no cough, no shortness of air, no recurring pulmonary infections Cardiovascular/Peripheral Vascular: No chest pain, No palpitations, no edema, no shortness of breath. Gastrointestinal: no incontinence, normal bowel movements reported Genitourinary: no incontinence Musculoskeletal: Back pain, leg pain Psychiatric: normal mood/ affect Neurological: [denies weakness in extremities], [denies balance issues] Objective:: Physical Exam General: Alert and oriented x3, no acute distress, pleasant and cooperative, [on room air] Lungs: Resps E/U, Symmetrical chest expansion, Eyes: PERRL Musculoskeletal: Flexion and extension of lumbar spine somewhat guarded secondary to pain, deep tendon reflexes normal, strength in upper and lower extremities [5/5], slightly antalgic gait noted Neurological: speech clear, 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 3 times daily. Patient is going to finish her physical therapy. I will see her back in 1 month. I also discussed this with Dr. Atkins. This note was dictated using voice recognition software and may contain errors or omissions
--- NOTE | 2018-10-02 15:00 | P.CONS_ITS ---
[facility] Pain Management SOAP Note Subjective:: Patient is a pleasant 83-year-old white female who presents today for follow-up. Patient is continuing her physical therapy. 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 Patient is currently on gabapentin. We will continue this. Patient is going to be seen by physical therapy. Patient is continuing this and states she is doing much better she rates her pain a 5 out of 10 today. We will give her some tramadol to help while she still in physical therapy. Patient is uninterested in any injective therapy at this time. ROS General: no recent weight change, no fever, no sleep disturbances Respiratory: no cough, no shortness of air, no recurring pulmonary infections Cardiovascular/Peripheral Vascular: No chest pain, No palpitations, no edema, no shortness of breath. Gastrointestinal: no incontinence, normal bowel movements reported Genitourinary: no incontinence Musculoskeletal: Back pain, leg pain Psychiatric: normal mood/ affect Neurological: [denies weakness in extremities], [denies balance issues] Objective:: Physical Exam General: Alert and oriented x3, no acute distress, pleasant and cooperative, [on room air] Lungs: Resps E/U, Symmetrical chest expansion, Eyes: PERRL Musculoskeletal: Flexion and extension of lumbar spine somewhat guarded secondary to pain, deep tendon reflexes normal, strength in upper and lower extremities [5/5], slightly antalgic gait noted Neurological: speech clear, 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 3 times daily. Patient is going to finish her physical therapy. I will see her back in 1 month. I also discussed this with Dr. Atkins. This note was dictated using voice recognition software and may contain errors or omissions
== END ==
PROVIDERS: PCP Family Medicine; Visit Provider Clinical Nurse Specialist Family Health
DX: M51.16 Intervertebral disc disorders with radiculopathy, lumbar region (principal)
CPT/HCPCS: 99213

== ENCOUNTER → 2019-05-23 11:04 | Outpatient (CLI) | payer MEDICARE, SELFPAY ==
--- NOTE | 2019-05-23 11:17 | XR_ITS ---
XR knee RT 3V HISTORY: ITS.REASON: RT KNEE PAIN ORDERING PHYSICIAN: Maria Fernanda Carrasco MD PATIENT AGE: 83 years COMPARISON: None FINDINGS: No fracture or dislocation. No lytic or blastic change. Normal mineralization. No significant arthritic changes evident. No other significant findings IMPRESSION: Negative Knee
== END ==
PROVIDERS: PCP Family Medicine; Visit Provider Emergency Medicine
DX: M25.561 Pain in right knee (principal)
CPT/HCPCS: 73562

== ENCOUNTER → 2019-06-29 12:38 | Outpatient (CLI) | payer MEDICARE, SELFPAY ==
--- NOTE | 2019-06-29 12:43 | MR_ITS ---
PROCEDURE: MR KNEE RT WO CON CLINICAL INDICATION: RIGHT ANTERIOR KNEE PAIN Knee locks up around COMPARISON: [id number] XR knee RT 3V from 08/09/2018 TECHNIQUE: Routine multiplanar multi echo sequences are performed without gadolinium enhancement. FINDINGS: The cruciate ligaments, lateral collateral ligament, patellar tendon, and quadriceps tendon appear intact. There is slight increased T2 signal involving the medial collateral ligament distally consistent with ligamentous sprain. There is diffuse increased T2 signal involving the posterior horn of the medial meniscus. This however does not meet strict MRI criteria for meniscal tear. There is also increased T2 signal involving the body and anterior horn of the medial meniscus. Bone marrow edema involves the proximal tibia medially consistent with bone bruise. There is a small amount of fluid deep to the tibial component of the medial collateral ligament. There is a small knee joint effusion. IMPRESSION: There is bone bruise of the medial tibial plateau. There is diffuse increased T2 signal of the medial meniscus. This is of questionable clinical significance. Meniscal trauma with mass or a pressley is considered. This however does not meet the strict MRI criteria for meniscal tear. There is increased T2 signal along the medial aspect of the medial collateral ligament distally at the tibial region consistent with sprain. Edema or hemorrhage underneath the MCL is also consideration. Dictated by: Blaise Lindsey MD 06/30/2019 18:03 Electronically signed by Blaise Lindsey MD in [place] 07/05/2019 10:55
== END ==
PROVIDERS: PCP Family Medicine; Visit Provider Emergency Medicine
DX: M25.561 Pain in right knee (principal)
CPT/HCPCS: 73721

== ENCOUNTER → 2019-07-12 14:30 | Outpatient (CLI) | payer MEDICARE, SELFPAY | PROVIDERS: Visit Provider Urology | DX: N39.0 Urinary tract infection, site not specified (principal) | CPT/HCPCS: 87086; 87088; 87186 ==

== ENCOUNTER → 2019-08-08 09:36 | Outpatient (CLI) | payer MEDICARE, SELFPAY ==
--- NOTE | 2019-08-08 09:43 | XR_ITS ---
PROCEDURE: XR KNEE RT 4V CLINICAL INDICATION: right knee pain COMPARISON: [id number] XR knee RT 3V from 08/09/2018 FINDINGS: No fracture or dislocation. No lytic or blastic change. There is normal mineralization. There are minimal osteoarthritic changes of the medial compartment with slight decrease in the joint space which appears somewhat more prominent than when compared to the previous exam Other findings:Suprapatellar effusion suspected IMPRESSION: Mild osteoarthritis of the medial compartment with small suprapatellar effusion Dictated by: Blaise Lindsey MD 08/08/2019 18:09 Electronically signed by Blaise Lindsey MD in [place] 08/08/2019 18:09
--- NOTE | 2019-08-08 09:43 | XR_ITS ---
PROCEDURE: XR HIP RT 2-3V W/PELVIS CLINICAL INDICATION: right hip pain COMPARISON: No exams were available for comparison FINDINGS: No fracture or dislocation. No lytic or blastic change. There is slight decrease in the joint space superiorly suggesting minimal osteoarthritic change. Surgical clips are present in the pelvic region on both sides. IMPRESSION: Minimal osteoarthritis of the right hip Dictated by: Blaise Lindsey MD 08/08/2019 18:10 Electronically signed by Blaise Lindsey MD in [place] 08/08/2019 18:10
== END ==
PROVIDERS: PCP Family Medicine; Visit Provider Orthopaedic Surgery
DX: M25.551 Pain in right hip (principal); M25.561 Pain in right knee
CPT/HCPCS: 73502; 73564

== ENCOUNTER → 2020-01-10 12:56 | Outpatient (CLI) | payer MEDICARE, OTHER, SELFPAY | PROVIDERS: Visit Provider Urology | DX: N39.0 Urinary tract infection, site not specified (principal) | CPT/HCPCS: 87086 ==

== ENCOUNTER 2020-01-23 21:51 | Observation (INO) ==
[2020-01-23 22:20] LABS: Microscopic, Urine URINE MICROSCOPIC (MICROSCOPIC)
[2020-01-23 22:25] LABS: Basophils # 0.1 K/mm3 (0-0.2); Basophils % 0.3 % (0.1-2.0); Eosinophils # 0.1 K/mm3 (0.0-0.4); Eosinophils % 0.6 % (0.1-12.0); Hematocrit 42.4 % (37.0-47.0); Hemoglobin 13.3 g/dL (12.2-16.2); Lymphocytes # 2.7 K/mm3 (0.7-4.5); Mean Corpuscular HGB Conc 31.5 g/dL (31.8-35.4); Mean Corpuscular Volume 93.8 fl (81-99); Mean Platelet Volume 7.6 fl (7.4-10.4); Monocytes # 1.1 K/mm3 (0.1-1.0); Neutrophils # 13.8 K/mm3 (1.8-7.8); Neutrophils % 78.2 % (37.0-80.0); Platelet Count 368 K/mm3 (142-424); Red Blood Count 4.51 M/mm3 (4.20-5.40); Red Cell Distribution Width 13.9 % (11.5-17.5); White Blood Count 17.7 K/mm3 (4.8-10.8)
[2020-01-23 22:30] LABS: Appearance,Urine CLEAR (Clear); Bilirubin,Urine Negative (Negative); Blood, Urine Negative (Negative); Color,Urine YELLOW (Yellow); Glucose,Urine (UA) 2+ (Negative); Ketones,Urine TRACE (Negative); Leukocyte Esterase,Urine 1+ (Negative); PH,Urine 5.5 (5.0-8.5); Protein,Urine Negative (Negative); Specific Gravity, Urine >= 1.030 (1.005-1.030); Urobilinogen,Urine 0.2 EU/dl (0.2)
--- NOTE | 2020-01-23 22:34 | Emergency Department Note ---
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 usp insulin use status Diabetes mellitus complication status: with other specified complication Qualified Code(s): E11.69 - Type 2 diabetes mellitus with other specified complication Disposition: Admitted As Inpatient Condition on Discharge: Good Instructions: DI for Hyperglycemia -- Adult Referrals: Kb Atkins MD [Primary Care Provider] - - Critical Care Critical Care Time: No Attestation: On 01/23/20, the high probability of a clinically significant, sudden or life threatening deterioration of the following system(s) required my full and direct attention, intervention and personal management. The time I documented below is in addition to time spent performing reported procedures but includes the following listed in this critical care notation. Medical Decision Making - Medical Records Medical records reviewed: Yes: I reviewed the patient's medical records. - Oscar Inquiry Pt receiving controlled substance: No Vital Signs: 01/23/20 22:06 01/23/20 23:46 Temperature 97.5 F L Temperature Source Oral Pulse Rate [Right] 58 L 55 L Respiratory Rate 20 Blood Pressure [Right Arm] 129/73 142/52 H Blood Pressure Mean [Right Arm] 91 82 Blood Pressure Source [Right Arm] Automatic Cuff Blood Pressure Position [Right Arm] Supine 02 Sat by Pulse Oximetry 94 L 94 L Oxygen Delivery Method Room Air - Lab Data Lab results reviewed: Yes: I reviewed the patient's lab results. Lab Results 01/23/20 21:58: POC Glucose 465 H* 01/23/20 22:05: WBC 17.7 H, RBC 4.51, Hgb 13.3, Hct 42.4, MCV 93.8, MCH 29.6, MCHC 31.5 L, RDW 13.9, Plt Count 368, MPV 7.6, Neut % (Auto) 78.2, Lymph % (Auto) 15.0, [place] % (Auto) 6.0, Eos % (Auto) 0.6, Baso % (Auto) 0.3, Neut # (Auto) 13.8 H, Lymph # (Auto) 2.7, [place] # (Auto) 1.1 H, Eos # (Auto) 0.1, Baso # (Auto) 0.1, Total Counted 100, Neutrophils % (Manual) 86 H, Lymphocytes % (Manual) 13, Monocytes % (Manual) 1 L, Platelet Estimate Normal, Stomatocytes 1+, ESR 10 01/23/20 22:05: Sodium 126 L, Potassium 5.1, Chloride 87 L, Carbon Dioxide 27, Anion Gap 17.1 H, BUN 43 H, Creatinine 1.10 H, Estimated Creat Clear 33, Estimated GFR 48 L, Est GFR ( Amer) 58 L, Glucose 436 H*, Calcium 11.2 H, Total Bilirubin 0.3, AST 245 H, ALT 152 H, Alkaline Phosphatase 128 H, Troponin I < 0.01, C-Reactive Protein 1.3, Total Protein 7.9, Albumin 4.6, Globulin 3.3 H , Albumin/Globulin Ratio 1.4, Amylase 109, Lipase 454 H, Acetone Level None detected 01/23/20 22:05: Digoxin 0.90 01/23/20 22:13: Urine Color Yellow, Urine Appearance Clear, Urine pH 5.5, Ur Specific [place] >= 1.030, Urine Protein Negative, Urine Glucose (UA) 2+, Urine Ketones Trace, Urine Blood Negative, Urine Nitrate Positive, Urine Bilirubin Negative, Urine Urobilinogen 0.2, Ur Leukocyte Esterase 1+ A, Urine WBC 5-10, Ur Squamous Epith Cells 5-10, Urine Bacteria Trace 01/23/20 23:35: Lactate 1.6 Result diagrams: 01/23/20 22:05 01/23/20 22:05 Orders (Tests/Meds): ED MEDICATIONS Generic Name Dose Route Start Last Admin Trade Name Freq PRN Reason Stop Dose Admin Sodium Chloride 1,000 mls @ 999 mls/hr 01/23/20 22:15 01/23/20 22:17 Sod Chlor 0.9% 1000ml Bag IV 01/23/20 23:15 999 mls/hr .Q1H1M SHANIA Administration Discontinued Medications Generic Name Dose Route Start Last Admin Trade Name Freq PRN Reason Stop Dose Admin Ondansetron HCl 4 mg 01/23/20 22:13 01/23/20 22:17 Zofran 4mg/2ml Vial IV 01/23/20 22:14 4 mg ONCE ONE Administration ORDERS Category Date Time Status CT abdomen pelvis wo con Stat Cat Scan 01/23/20 22:16 Taken XR chest 2V Stat Exams 01/23/20 22:14 Taken Troponin I Q3H Lab 01/24/20 01:15 Ordered Troponin I Q3H Lab 01/24/20 04:15 Ordered Blood Culture Stat Micro 01/23/20 23:35 Received Urine Culture Stat Micro 01/23/20 22:13 Received - Radiology Data #1 Image(s): Chest Image Reviewed: Yes I reviewed the patient's radiology image Preliminary Findings: Normal/NAD - CT Data CT Scan: Abdomen, Pelvis Time Received: 23:[address] Reviewed: Yes: I have viewed the radiologist's interpretation Preliminary Findings: Abnormal (sbo) - ECG Data Tracing #1 Arrhythmias present: sinus alirio Ischemic changes: non-specific ST-T wave changes - Physician Consults Physician Consulted: stacey Reason -: Admission General Adult HPI - General Chief complaint: Hyper/Hypoglycemia Stated complaint: Sugar is high, V&D,cough Time Seen by Provider: 01/23/20 22:15 Mode of Arrival: Ambulatory Source of Information: Patient, Medical Record Limitations: No Limitations Description of Symptoms (Recalled from ER Triage Doc. by RN): Pt states chris FSBS was >400 at home and she started vomitting today - History of Present Illness HPI narrative: pt with vomiting which started today - no fever but is diabetic and has inc glu - no fever and has some abd pain Onset (ago): hour(s) Location: abdomen Severity: moderate Associated symptoms: denies other symptoms Treatments prior to arrival: none - Related Data Home Medications Medication Instructions Recorded Confirmed Digoxin [Digitek] 125 mcg PO DAILY 04/22/18 01/23/20 Glimepiride [Amaryl 2mg tablet] 2 mg PO DAILY 04/22/18 01/23/20 Rivaroxaban [Xarelto 20mg Tablet*] 20 mg PO DAILY 04/22/18 01/23/20 Sitagliptin Phosphate [Januvia 100 mg PO DAILY 04/22/18 01/23/20 100mg tablet] dilTIAZem HCl [Diltiazem 240mg 240 mg PO DAILY 08/13/18 01/23/20 24Hr ER Cap] Previous Rx's Medication Instructions Recorded Cyclobenzaprine HCl 5 mg PO Q8H PRN 10 Days #30 tab 01/14/20 [Cyclobenzaprine 5mg Tab] Allergies Allergy/AdvReac Type Severity Reaction Status Date / Time tetanus toxoid, adsorbed Allergy Unknown Verified 01/10/20 11:11 [TETANUS TOXOID, ADSORBED] cephalexin [From Keflex] Allergy Verified 01/10/20 11:11 clarithromycin [From Biaxin] Allergy Verified 01/10/20 11:11 metformin Allergy Verified 01/10/20 11:11 sulfamethoxazole Allergy Verified 01/10/20 11:11 [From Bactrim] trimethoprim [From Bactrim] Allergy Verified 01/10/20 11:11 [facility] History - Hepatitis A Screen Drug use history?: No High risk sexual behaviors?: No History of sexually transmitted infection?: No Currently employed?: No Childcare worker?: No Do you have indoor plumbing?: Yes Do you have electricity?: Yes Attestation statement:: This patient has been screened for Hepatitis A risk factors. I have reviewed the patient's past medical history: Yes Medical History: Reports:: Atrial Fibrillation, Cancer, Chronic Obstructive Pulmonary Disease (COPD), Cerebrovascular Accident, Diabetes Mellitus Type 2, Hypertension Denies:: Diabetes Mellitus Type 1, MRSA Other Medical History: Reports: Arthritis Laterality Cases: Left: Arthroscopy Knee, Right: Arthroscopy Shoulder, Other Other Surgeries: Yes: Cancer Surgery, Cholecystectomy, Hysterectomy-Total Amputation: No Comment: Hemorrhoidectomy 1972 - Social History Smoking Status: Current every day smoker Tobacco Type: cigarettes # Packs/Day (cigarettes): 2 #Yrs smoked (if former smoker): 60 Alcohol Intake: never Substance Use Type: denies use Occupational Status: retired Housing: house Household Members: none Family Hx:: Coronary Artery Disease, Diabetes, Heart Attack, Hypertension ROS Obtained: Yes All systems reviewed & no additional complaints - Constitutional Constitutional: Denies fever(s) - Eyes Eyes: Denies change in vision - ENT Ears, Nose, Mouth, and Throat: Denies sore throat - Cardiovascular Cardiovascular: Denies chest pain, Denies dyspnea - Respiratory Respiratory: No cough - Gastrointestinal Gastrointestingal: Reports: as per HPI, abdominal pain, nausea, vomiting. Denies: diarrhea, vomiting blood, bright red blood in stools, black, tarry stools - Genitourinary Female Genitourinary: Denies hematuria - Musculoskeletal Musculoskeletal: Denies joint pain, Denies joint swelling, Denies limited range of motion - Integumentary/Breasts Skin/Breast: Denies rash - Neurologic Neurologic: Denies headache(s), Denies seizure-like activity Physical Exam - General General appearance: alert - Head Head exam: normocephalic - Eye Eye exam: Present: PERRL, EOMI. Absent: scleral icterus - ENT ENT exam: Present: mucous membranes dry - Neck Neck exam: Present: trachea midline - Respiratory Respiratory exam: Absent: respiratory distress - Cardiovascular Cardiovascular exam: Present: regular rate, systolic murmur - Abdominal Exam Abdominal exam: Present: soft, tenderness Abdominal tenderness: Present: epigastrium, moderate - Extremities Exam Extremities exam: Present: full ROM - Neurological Exam Neurological exam: Present: alert, oriented X3, CN II-XII intact - Psychiatric Psychiatric exam: Present: normal affect - Skin Skin exam: Absent: rash
[2020-01-23 22:39] LABS: Alanine Aminotransferase 152 U/L (12-78); Albumin Level 4.6 g/dl (3.5-5.0); Albumin/Globulin Ratio 1.4 (1.1-1.8); Alkaline Phosphatase 128 U/L (38-126); Amylase 109 U/L (30-110); Anion Gap 17.1 mEq/L (5-15); Aspartate Amino Transferase 245 U/L (14-36); Bilirubin,Total 0.3 mg/dl (0.2-1.3); Blood Urea Nitrogen 43 mg/dl (7-17); Calcium 11.2 mg/dl (8.4-10.2); Carbon Dioxide 27 mmol/L (22.0-30.0); Chloride 87 mmol/L (98-107); Globulin 3.3 g/dL (1.3-3.2); Sodium 126 mmol/L (136-145); Total Protein,Serum 7.9 g/dl (6.3-8.2)
[2020-01-23 22:43] LABS: Glucose 436 mg/dl (74-100)
[2020-01-23 22:44] LABS: C-Reactive Protein 1.3 mg/L (0-4)
[2020-01-23 22:48] LABS: Bacteria,Urine Trace /lpf
[2020-01-23 23:03] LABS: Lymphocytes % 13 % (10-50); Monocytes % 1 % (2-9); Neutrophils % 86 % (42-76); Total Cells Counted 100
[2020-01-23 23:04] LABS: Stomatocytes 1+
[2020-01-23 23:05] LABS: Erythrocyte Sedimentation Rate 10 mm/hr (0-30)
[2020-01-23 23:15] LABS: Acetone, Serum (Rapid) None Detected (None Detect)
[2020-01-24 04:27] LABS: Basophils % 0.3 % (0.1-2.0); Eosinophils # 0.1 K/mm3 (0.0-0.4); Eosinophils % 0.7 % (0.1-12.0); Hematocrit 36.5 % (37.0-47.0); Hemoglobin 12.1 g/dL (12.2-16.2); Lymphocytes # 3.3 K/mm3 (0.7-4.5); Lymphocytes % 24.8 % (10-50); Mean Corpuscular HGB Conc 33.1 g/dL (31.8-35.4); Mean Corpuscular Volume 90.7 fl (81-99); Mean Platelet Volume 8.4 fl (7.4-10.4); Monocytes % 7.2 % (1.7-9.3); Neutrophils % 67.1 % (37.0-80.0); Platelet Count 328 K/mm3 (142-424); Red Blood Count 4.02 M/mm3 (4.20-5.40); White Blood Count 13.4 K/mm3 (4.8-10.8)
[2020-01-24 04:33] LABS: Anion Gap 13.8 mEq/L (5-15)
[2020-01-24 04:59] LABS: Calcium 9.9 mg/dl (8.4-10.2)
--- NOTE | 2020-01-24 07:16 | Pharmacy Consult Notes ---
[facility] VTE Monitoring - Patient Demographics Admission date: 01/24/20 Report Date: 01/24/20 Time: 07:15 Allergies/Adverse Reactions: Patient Allergies tetanus toxoid, adsorbed [TETANUS TOXOID, ADSORBED] Allergy (Unknown, Verified 01/24/20 01:44) Burning cephalexin [From Keflex] Allergy (Verified 01/24/20 01:44) Burning sensation clarithromycin [From Biaxin] Allergy (Verified 01/24/20 01:44) Hallucinating metformin Allergy (Verified 01/24/20 01:44) nausea and vomiting sulfamethoxazole [From Bactrim] Allergy (Verified 01/24/20 01:44) Hallucinating trimethoprim [From Bactrim] Allergy (Verified 01/24/20 01:44) Hallucinating Height: 1.57 m Weight: 52.7 kg Patient Problems: Current Active Problems SBO (small bowel obstruction) (Acute) Diabetes mellitus (Acute) Renal insufficiency (Acute) - VTE Risk Labs: VTE Related Lab Results Hgb 12.1 g/dL (12.2-16.2) L 01/24/20 04:15 Hct 36.5 % (37.0-47.0) L 01/24/20 04:15 Plt Count 328 K/mm3 (142-424) 01/24/20 04:15 BUN 32 mg/dl (7-17) H D 01/24/20 04:15 Creatinine 0.90 mg/dl (0.52-1.04) 01/24/20 04:15 Estimated Creat Clear 36 mL/min (50-200) 01/24/20 04:15 Was VTE Risk Assessment Performed: Yes VTE Score: 9 VTE Risk Level: Moderate Risk Clinical Trial Participant: No - Prophylaxis VTE Prophylaxis Ordered?: Yes Types of VTE Prophylaxis: TEDS Knee High
--- NOTE | 2020-01-24 08:29 | History & Physical Report ---
*Admission Date: 01/24/20 <Giselle Reed 01/24/20 08:38> *Chief complaint: abdominal pain, nausea, vomiting <Giselle Reed 01/24/20 08:38> *History of present illness: Ms. Wellington is an 84-year-old female who presented to the office of [facility] on 01/15/2020 with complaints of low back pain. The pain was radiating to her thigh and her groin. She had been to the emergency room and was given Norflex and Solu-Medrol which helped her pain. She was also prescribed some Flexeril. She followed up in the office with Dr. Alcocer and was started on tramadol and Medrol Dosepak. She states her back pain never improved. Yesterday she began having diffuse abdominal pain and vomiting. She states she was unable to keep down any solids or liquids. She did have a normal bowel movement yesterday. She was seen in the emergency room for evaluation and had a CT of the abdomen. According to the ER note, it showed a small bowel obstruction and she was admitted and started on IV fluids and was kept n.p.o. This a.m. she states her vomiting has subsided. Her abdominal pain is much better and she only has minimal pain in the left lower quadrant. Her bowels have not moved today. She is complaining of continued back and leg pain. <Giselle Reed 01/24/20 08:38> [facility] History I have reviewed the patient's past medical history: Yes <Giselle Reed 01/24/20 08:38> Medical History: Reports:: Atrial Fibrillation, Cancer (UTERINE, Bladder), Chronic Obstructive Pulmonary Disease (COPD), Cerebrovascular Accident, Diabetes Mellitus Type 2, Heart Murmur, Hypertension Denies:: Diabetes Mellitus Type 1, MRSA <Giselle Reed 01/24/20 08:38> *Have you ever received a pneumonia vaccine?: Yes (2016) <Giselle Rede 01/24/20 08:38> *Have you received a flu vaccine this season?: Yes (07/2019) <Giselle Reed 01/24/20 08:38> Other Medical History: Reports: Arthritis, Other (Insomnia, Low back pain) <Giselle Reed 03/26/20 08:38> Laterality Cases: Left: Arthroscopy Knee, Right: Arthroscopy Shoulder, Other <Giselle Reed 01/24/20 08:38> Other Surgeries: Yes: Cancer Surgery (Bladder, KRISTA), Cholecystectomy, Hysterectomy-Total <Giselle Reed 01/24/20 08:38> Amputation: No <Giselle Reed 01/24/20 08:38> Comment: Hemorrhoidectomy, Bowel resection <Giselle Reed 01/24/20 08:38> - *Social History Educational Level: Attended High School <Giselle Reed 01/24/20 08:38> Smoking Status: Current every day smoker <Giselle Reed 01/24/20 08:38> Tobacco Type: cigarettes <Giselle Reed 01/24/20 08:38> # Packs/Day (cigarettes): 1 <Giselle Reed 01/24/20 08:38> #Yrs smoked (if former smoker): 60 <Giselle Reed 01/24/20 08:38> Alcohol Intake: never <Giselle Reed 01/24/20 08:38> Substance Use Type: denies use <Giselle Reed 01/24/20 08:38> *Occupational Status:: retired <Giselle Reed 01/24/20 08:38> Housing: apartment <Giselle Reed 01/24/20 08:38> Household Members: none <Giselle Reed 01/24/20 08:38> *Travel in the last 8 weeks: None <Giselle Reed 01/24/20 08:38> Family Hx:: Cancer (thyroid), Diabetes, Heart Attack <Giselle Reed 01/24/20 08:38> Review of Systems - Constitutional Reports weakness, Denies chills, Denies fever(s) <Giselle Reed 01/24/20 08:38> - Eyes Denies blurry vision, Denies double vision <Giselle Reed 01/24/20 08:38> - ENT Denies nasal congestion, Denies sore throat <Giselle Reed 01/24/20 08:38> - *Cardiovascular Denies chest pain, Denies shortness of breath, Denies leg swelling <Giselle Reed 01/24/20 08:38> - *Respiratory Denies cough, Denies shortness of breath <Giselle Reed - 01/24/20 08:38> - *Gastrointestinal Reports abdominal pain (LLQ), Reports constipation, Reports nausea, Reports vomiting, Denies loose stools <Giselle Reed 01/24/20 08:38> - *Genitourinary Denies difficulty urinating, Denies painful urination <Giselle Reed 01/24/20 08:38> - *Musculoskeletal Reports back pain, Reports muscle cramps (legs), Denies joint pain <Giselle Reed 01/24/20 08:38> - *Neurologic Denies headache(s), Denies seizure-like activity, Denies dizziness, Denies weakness <Giselle Reed 01/24/20 08:38> Meds Home Medications Medication Instructions Recorded Confirmed Type Digoxin [Digitek] 125 mcg PO DAILY 04/22/18 01/24/20 History Glimepiride [Amaryl 2mg tablet] 2 mg PO DAILY 04/22/18 01/24/20 History Rivaroxaban [Xarelto 20mg Tablet*] 20 mg PO DAILY 04/22/18 01/24/20 History Sitagliptin Phosphate [Januvia 100 mg PO DAILY 04/22/18 01/24/20 History 100mg tablet] dilTIAZem HCl [Diltiazem 240mg 240 mg PO DAILY 08/13/18 01/24/20 History 24Hr ER Cap] Cyclobenzaprine HCl 5 mg PO Q8H PRN 10 Days #30 tab 01/14/20 01/24/20 Rx [Cyclobenzaprine 5mg Tab] Ascorbic Acid [Vitamin C] 1,000 mg PO DAILY 01/24/20 01/24/20 History Cholecalciferol (Vitamin D3) 3,000 unit PO DAILY 01/24/20 01/24/20 History [Vitamin D3] Cyanocobalamin (Vitamin B-12) 1,000 mcg PO DAILY 01/24/20 01/24/20 History [Vitamin B-12] Gabapentin [Gabapentin 300mg Cap] 300 mg PO TID 01/24/20 01/24/20 History Pioglitazone HCl [Actos 15mg 15 mg PO DAILYDM 01/24/20 01/24/20 History tablet] Tramadol HCl/Acetaminophen 1 tab PO Q8 PRN 01/24/20 01/24/20 History [Ultracet 37.5/325mg tablet] <Kb Atkins - 01/24/20 08:49> Allergies Allergy/AdvReac Type Severity Reaction Status Date / Time tetanus toxoid, adsorbed Allergy Unknown Burning Verified 01/24/20 01:44 [TETANUS TOXOID, ADSORBED] cephalexin [From Keflex] Allergy Burning Verified 01/24/20 01:44 sensation clarithromycin [From Biaxin] Allergy Hallucinati Verified 01/24/20 01:44 ng metformin Allergy nausea and Verified 01/24/20 01:44 vomiting sulfamethoxazole Allergy Hallucinati Verified 01/24/20 01:44 [From Bactrim] ng trimethoprim [From Bactrim] Allergy Hallucinati Verified 01/24/20 01:44 ng <Kb Atkins - 01/24/20 08:49> Exam Vital signs and Labs for Last 24 Hours: Temp Pulse Resp BP Pulse Ox 98.6 F 55 L 18 112/36 L 92 L 01/24/20 07:33 01/24/20 07:33 01/24/20 07:33 01/24/20 07:33 01/24/20 07:33 Laboratory Results - last 24 hr 01/23/20 21:58: POC Glucose 465 H* 01/23/20 22:05: WBC 17.7 H, RBC 4.51, Hgb 13.3, Hct 42.4, MCV 93.8, MCH 29.6, MCHC 31.5 L, RDW 13.9, Plt Count 368, MPV 7.6, Neut % (Auto) 78.2, Lymph % (Auto) 15.0, Barry % (Auto) 6.0, Eos % (Auto) 0.6, Baso % (Auto) 0.3, Neut # (Auto) 13.8 H, Lymph # (Auto) 2.7, Barry # (Auto) 1.1 H, Eos # (Auto) 0.1, Baso # (Auto) 0.1, Total Counted 100, Neutrophils % (Manual) 86 H, Lymphocytes % (Manual) 13, Monocytes % (Manual) 1 L, Platelet Estimate Normal, Stomatocytes 1+, ESR 10 01/23/20 22:05: Sodium 126 L, Potassium 5.1, Chloride 87 L, Carbon Dioxide 27, Anion Gap 17.1 H, BUN 43 H, Creatinine 1.10 H, Estimated Creat Clear 33, Estimated GFR 48 L, Est GFR ( Amer) 58 L, Glucose 436 H*, Calcium 11.2 H, Total Bilirubin 0.3, AST 245 H, ALT 152 H, Alkaline Phosphatase 128 H, Troponin I < 0.01, C-Reactive Protein 1.3, Total Protein 7.9, Albumin 4.6, Globulin 3.3 H , Albumin/Globulin Ratio 1.4, Amylase 109, Lipase 454 H, Acetone Level None detected 01/23/20 22:05: Digoxin 0.90 01/23/20 22:13: Urine Color Yellow, Urine Appearance Clear, Urine pH 5.5, Ur Specific [place] >= 1.030, Urine Protein Negative, Urine Glucose (UA) 2+, Urine Ketones Trace, Urine Blood Negative, Urine Nitrate Positive, Urine Bilirubin Negative, Urine Urobilinogen 0.2, Ur Leukocyte Esterase 1+ A, Urine WBC 5-10, Ur Squamous Epith Cells 5-10, Urine Bacteria Trace 01/23/20 23:35: Lactate 1.6 01/24/20 00:19: POC Glucose 376 H* 01/24/20 01:15: Troponin I < 0.01 01/24/20 04:15: Troponin I < 0.01 01/24/20 04:15: WBC 13.4 H, RBC 4.02 L, Hgb 12.1 L, Hct 36.5 L, MCV 90.7, MCH 30.0, MCHC 33.1, RDW 14.0, Plt Count 328, MPV 8.4, Neut % (Auto) 67.1, Lymph % (Auto) 24.8, Barry % (Auto) 7.2, Eos % (Auto) 0.7, Baso % (Auto) 0.3, Neut # (Auto) 9.0 H, Lymph # (Auto) 3.3, Barry # (Auto) 1.0, Eos # (Auto) 0.1, Baso # (Auto) 0.0 01/24/20 04:15: Sodium 132 L, Potassium 4.8, Chloride 95 L, Carbon Dioxide 28, Anion Gap 13.8, BUN 32 H D, Creatinine 0.90, Estimated Creat Clear 36, Estimated GFR 60, Est GFR ( Amer) 73 D, Glucose 286 H D, Calcium 9.9 D 01/24/20 06:21: POC Glucose 258 H <Kb Atkins - 01/24/20 08:49> Temp Pulse Resp BP Pulse Ox 98.6 F 55 L 18 112/36 L 92 L 01/24/20 07:33 01/24/20 07:33 01/24/20 07:33 01/24/20 07:33 01/24/20 07:33 Laboratory Results - last 24 hr 01/23/20 21:58: POC Glucose 465 H* 01/23/20 22:05: WBC 17.7 H, RBC 4.51, Hgb 13.3, Hct 42.4, MCV 93.8, MCH 29.6, MCHC 31.5 L, RDW 13.9, Plt Count 368, MPV 7.6, Neut % (Auto) 78.2, Lymph % (Auto) 15.0, Barry % (Auto) 6.0, Eos % (Auto) 0.6, Baso % (Auto) 0.3, Neut # (Auto) 13.8 H, Lymph # (Auto) 2.7, Barry # (Auto) 1.1 H, Eos # (Auto) 0.1, Baso # (Auto) 0.1, Total Counted 100, Neutrophils % (Manual) 86 H, Lymphocytes % (Manual) 13, Monocytes % (Manual) 1 L, Platelet Estimate Normal, Stomatocytes 1+, ESR 10 01/23/20 22:05: Sodium 126 L, Potassium 5.1, Chloride 87 L, Carbon Dioxide 27, Anion Gap 17.1 H, BUN 43 H, Creatinine 1.10 H, Estimated Creat Clear 33, Estimated GFR 48 L, Est GFR ( Amer) 58 L, Glucose 436 H*, Calcium 11.2 H, Total Bilirubin 0.3, AST 245 H, ALT 152 H, Alkaline Phosphatase 128 H, Troponin I < 0.01, C-Reactive Protein 1.3, Total Protein 7.9, Albumin 4.6, Globulin 3.3 H , Albumin/Globulin Ratio 1.4, Amylase 109, Lipase 454 H, Acetone Level None detected 01/23/20 22:05: Digoxin 0.90 01/23/20 22:13: Urine Color Yellow, Urine Appearance Clear, Urine pH 5.5, Ur Specific [place] >= 1.030, Urine Protein Negative, Urine Glucose (UA) 2+, Urine Ketones Trace, Urine Blood Negative, Urine Nitrate Positive, Urine Bilirubin Negative, Urine Urobilinogen 0.2, Ur Leukocyte Esterase 1+ A, Urine WBC 5-10, Ur Squamous Epith Cells 5-10, Urine Bacteria Trace 01/23/20 23:35: Lactate 1.6 01/24/20 00:19: POC Glucose 376 H* 01/24/20 01:15: Troponin I < 0.01 01/24/20 04:15: Troponin I < 0.01 01/24/20 04:15: WBC 13.4 H, RBC 4.02 L, Hgb 12.1 L, Hct 36.5 L, MCV 90.7, MCH 30.0, MCHC 33.1, RDW 14.0, Plt Count 328, MPV 8.4, Neut % (Auto) 67.1, Lymph % (Auto) 24.8, Barry % (Auto) 7.2, Eos % (Auto) 0.7, Baso % (Auto) 0.3, Neut # ( Auto) 9.0 H, Lymph # (Auto) 3.3, Barry # (Auto) 1.0, Eos # (Auto) 0.1, Baso # (Auto) 0.0 01/24/20 04:15: Sodium 132 L, Potassium 4.8, Chloride 95 L, Carbon Dioxide 28, Anion Gap 13.8, BUN 32 H D, Creatinine 0.90, Estimated Creat Clear 36, Estimated GFR 60, Est GFR ( Amer) 73 D, Glucose 286 H D, Calcium 9.9 D 01/24/20 06:21: POC Glucose 258 H <Giselle Reed - 01/24/20 08:38> I & O for Last 24 hours: Intake & Output 01/21/20 01/22/20 01/23/20 01/24/20 23:59 23:59 23:59 23:59 Intake Total 2368 / 2368 Balance 236 / 2368 Weight 117 lb 116 lb 2.938 oz <[place],Kb - 01/24/20 08:49> Intake & Output 01/21/20 01/22/20 01/23/20 01/24/20 11:59 11:59 11:59 11:59 Intake Total 2368 / 2368 Balance 2368 / 2368 Weight 116 lb 2.938 oz <Giselle Reed 01/24/20 08:38> Microbiology Reports for the Last 24 Hours: Microbiology 01/23/20 22:13 Urine,Clean Catch Urine Culture - Preliminary <Kb Atkins - 01/24/20 08:49> Microbiology 01/23/20 22:13 Urine,Clean Catch Urine Culture - Preliminary <Giselle Reed - 01/24/20 08:38> - Constitutional no acute distress <Giselle Reed 01/24/20 08:38> - *Routine HEENT Exam Head: Present: normocephalic <Giselle Reed 01/24/20 08:38> Eye: Present: EOMI, PERRL <Giselle Reed 01/24/20 08:38> ENT: Present: mucous membranes dry <Giselle Reed 01/24/20 08:38> - *Routine Neck Exam Present: supple. Absent: lymphadenopathy <Giselle Reed 01/24/20 08:38> - *Routine Respiratory Exam Present: CTA bilaterally <Giselle Reed 01/24/20 08:38> - *Routine Cardiovascular Exam Present: RRR <Giselle Reed 01/24/20 08:38> - *Routine Abdominal Exam Present: soft, tenderness (LLQ). Absent: rebound, guarding <Giselle Reed 01/24/20 08:38> Comments: Hypoactive BS <Giselle Reed 01/24/20 08:38> - *Routine Extremities Exam Absent: cyanosis, clubbing, edema <Giselle Reed 01/24/20 08:38> - *Routine Skin Exam Present: warm. Absent: rash <Giselle Reed 01/24/20 08:38> - *Routine Neurological Exam Present: alert, oriented X3 <Giselle Reed 01/24/20 08:38> H&P: Result - Impressions CXR - Chronic coarsening of the bronchovascular markings with some minimal interstitial thickening in the lung bases. No lobar consolidation or collapse Abdominal CT - awaiting official report <Giselle Reed - 01/24/20 08:38> Assessment and Plan (1) SBO (small bowel obstruction) Current visit: Yes Status: Acute Category: Medical Code(s): K56.609 - Unspecified intestinal obstruction, unspecified as to partial versus complete obstruction (2) Leucocytosis Current visit: No Status: Acute Category: Medical Code(s): D72.829 - Elevated white blood cell count, unsp ecified (3) Renal insufficiency Current visit: Yes Status: Acute Category: Medical Code(s): N28.9 - Disorder of kidney and ureter, unspecified (4) Low back pain Current visit: No Status: Acute Qualifiers: Qualified Code(s): M54.41 - Lumbago with sciatica, right side; G89.29 - Other chronic pain Category: Medical Code(s): M54.5 - Low back pain (5) Diabetes mellitus Current visit: Yes Status: Chronic Qualifiers: Qualified Code(s): E11.69 - Type 2 diabetes mellitus with other specified complication Category: Medical Code(s): E11.9 - Type 2 diabetes mellitus without complications (6) History of endometrial cancer Current visit: Yes Status: Chronic Category: Medical Code(s): Z85.42 - Personal history of malignant neoplasm of other parts of uterus (7) History of bladder cancer Current visit: Yes Status: Chronic Category: Medical Code(s): Z85.51 - Personal history of malignant neoplasm of bladder (8) History of atrial fibrillation Current visit: Yes Status: Chronic Category: Medical Code(s): Z86.79 - Personal history of other diseases of the circulatory system (9) COPD (chronic obstructive pulmonary disease) Current visit: Yes Status: Chronic Category: Medical Code(s): J44.9 - Chronic obstructive pulmonary disease, unspecified (10) Chronic leg pain Current visit: No Status: Chronic Qualifiers: Qualified Code(s): M79.605 - Pain in left leg; G89.29 - Other chronic pain Category: Medical Code(s): M79.606 - Pain in leg, unspecified; G89.29 - Other chronic pain (11) DJD (degenerative joint disease), lumbar Current visit: No Status: Chronic Qualifiers: Qualified Code(s): M47.26 - Other spondylosis with radiculopathy, lumbar region Category: Medical Code(s): M47.816 - Spondylosis without myelopathy or radiculopathy, lumbar region <Kb Atkins - 01/24/20 08:49> (1) SBO (small bowel obstruction) Current visit: Yes Status: Acute Category: Medical Code(s): K56.609 - Unspecified intestinal obstruction, unspecified as to partial versus complete obstruction (2) Leucocytosis Current visit: No Status: Acute Category: Medical Code(s): D72.829 - Elevated white blood cell count, unspecified (3) Renal insufficiency Current visit: Yes Status: Acute Category: Medical Code(s): N28.9 - Disorder of kidney and ureter, unspecified (4) Low back pain Current visit: No Status: Acute Qualifiers: Chronicity: chronic Back pain laterality: right Sciatica presence: with sciatica Sciatica laterality: sciatica of right side Qualified Code(s): M54.41 - Lumbago with sciatica, right side; G89.29 - Other chronic pain Category: Medical Code(s): M54.5 - Low back pain (5) Diabetes mellitus Current visit: Yes Status: Chronic Qualifiers: Diabetes mellitus type: type 2 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 insulin use: unspecified senior care insulin use status Diabetes mellitus complication status: with other specified complication Qualified Code(s): E11.69 - Type 2 diabetes mellitus with other specified complication Category: Medical Code(s): E11.9 - Type 2 diabetes mellitus without complications (6) History of endometrial cancer Current visit: Yes Status: Chronic Category: Medical Code(s): Z85.42 - Personal history of malignant neoplasm of other parts of uterus (7) History of bladder cancer Current visit: Yes Status: Chronic Category: Medical Code(s): Z85.51 - Personal history of malignant neoplasm of bladder (8) History of atrial fibrillation Current visit: Yes Status: Chronic Category: Medical Code(s): Z86.79 - Personal history of other diseases of the circulatory system (9) COPD (chronic obstructive pulmonary disease) Current visit: Yes Status: Chronic Category: Medical Code(s): J44.9 - Chronic obstructive pulmonary disease, unspecified (10) Chronic leg pain Current visit: No Status: Chronic Qualifiers: Laterality: left Qualified Code(s): M79.605 - Pain in left leg; G89.29 - Other chronic pain Category: Medical Code(s): M79.606 - Pain in leg, unspecified; G89.29 - Other chronic pain (11) DJD (degenerative joint disease), lumbar Current visit: No Status: Chronic Qualifiers: Spinal osteoarthritis complication: with radiculopathy Qualified Code(s): M47.26 - Other spondylosis with radiculopathy, lumbar region Category: Medical Code(s): M47.816 - Spondylosis without myelopathy or radiculopathy, lumbar region <Giselle Reed - 01/24/20 08:23> - Assessment and plan all Dx Assessment and Plan for all problems:: Saw patient, agree with above note. <Kb Atkins - 01/24/20 08:49> White blood cell count has improved. Patient has been started on IV fluids, antiemetics, and pain medication. She has not had a bowel movement this morning but her abdominal pain is significantly better. We will get abdominal x-rays and start her on a clear liquid diet. <Giselle Reed - 01/24/20 08:38>
--- NOTE | 2020-01-24 08:49 | Consult Report ---
*Admission Date: 01/24/20 *Reason for consult:: Small bowel obstruction *History of present illness: This is an 84yo female seen in consultation from her PCP after being seen in the ED yesterday. She presented with abdominal pain and N/V. She had radiographic evidence of likely small bowel obstruction and the surgical service was consulted for evaluation. Forwarded from admission H&P: Ms. Wellington is an 84-year-old female who presented to the office of [facility] on 01/15/2020 with complaints of low back pain. The pain was radiating to her thigh and her groin. She had been to the emergency room and was given Norflex and Solu-Medrol which helped her pain. She was also prescribed some Flexeril. She followed up in the office with Dr. Alcocer and was started on tramadol and Medrol Dosepak. She states her back pain never improved. Yesterday she began having diffuse abdominal pain and vomiting. She states she was unable to keep down any solids or liquids. She did have a normal bowel movement yesterday. She was seen in the emergency room for evaluation and had a CT of the abdomen. According to the ER note, it showed a small bowel obstruction and she was admitted and started on IV fluids and was kept n.p.o. This a.m. she states her vomiting has subsided. Her abdominal pain is much better and she only has minimal pain in the left lower quadrant. Her bowels have not moved today. She is complaining of continued back and leg pain. Review of Systems - Constitutional Denies chills - ENT Denies change in voice - *Cardiovascular Denies chest pain - *Respiratory Denies cough - *Gastrointestinal Reports abdominal pain, Reports nausea, Reports vomiting, Denies vomiting blood, Denies loose stools, Denies black, tarry stools - *Musculoskeletal Denies deformity - *Neurologic Denies headache(s), Denies seizure-like activity, Denies dizziness, Denies weakness - Psychiatric Denies anxiety - Hematologic/Lymphatic Denies easy bleeding - Allergic/Immunologic Denies wheezing HMH History Medical History: Reports:: Atrial Fibrillation, Cancer (UTERINE, Bladder), Chronic Obstructive Pulmonary Disease (COPD), Cerebrovascular Accident, Diabetes Mellitus Type 2, Heart Murmur, Hypertension Denies:: Diabetes Mellitus Type 1, MRSA *Have you ever received a pneumonia vaccine?: Yes (2016) *Have you received a flu vaccine this season?: Yes (07/2019) Other Medical History: Reports: Arthritis, Other (Insomnia, Low back pain) Laterality Cases: Left: Arthroscopy Knee, Right: Arthroscopy Shoulder, Other Other Surgeries: Yes: Cancer Surgery (Bladder, KRISTA), Cholecystectomy (Partial SB resection secondary to trocar injury at time of lap amilcar), Hysterectomy-Total Amputation: No - *Social History Educational Level: Attended High School Smoking Status: Current every day smoker Tobacco Type: cigarettes # Packs/Day (cigarettes): 1 #Yrs smoked (if former smoker): 60 Alcohol Intake: never Substance Use Type: denies use *Occupational Status:: retired Housing: apartment Household Members: none *Travel in the last 8 weeks: None Family Hx:: Cancer (thyroid), Diabetes, Heart Attack Meds Home Medications Medication Instructions Recorded Confirmed Type Digoxin [Digitek] 125 mcg PO DAILY 04/22/18 01/24/20 History Glimepiride [Amaryl 2mg tablet] 2 mg PO DAILY 04/22/18 01/24/20 History Rivaroxaban [Xarelto 20mg Tablet*] 20 mg PO DAILY 04/22/18 01/24/20 History Sitagliptin Phosphate [Januvia 100 mg PO DAILY 04/22/18 01/24/20 History 100mg tablet] dilTIAZem HCl [Diltiazem 240mg 240 mg PO DAILY 08/13/18 01/24/20 History 24Hr ER Cap] Cyclobenzaprine HCl 5 mg PO Q8H PRN 10 Days #30 tab 01/14/20 01/24/20 Rx [Cyclobenzaprine 5mg Tab] Ascorbic Acid [Vitamin C] 1,000 mg PO DAILY 01/24/20 01/24/20 History Cholecalciferol (Vitamin D3) 3,000 unit PO DAILY 01/24/20 01/24/20 History [Vitamin D3] Cyanocobalamin (Vitamin B-12) 1,000 mcg PO DAILY 01/24/20 01/24/20 History [Vitamin B-12] Gabapentin [Gabapentin 300mg Cap] 300 mg PO TID 01/24/20 01/24/20 History Pioglitazone HCl [Actos 15mg 15 mg PO DAILYDM 01/24/20 01/24/20 History tablet] Tramadol HCl/Acetaminophen 1 tab PO Q8 PRN 01/24/20 01/24/20 History [Ultracet 37.5/325mg tablet] Allergies Allergy/AdvReac Type Severity Reaction Status Date / Time tetanus toxoid, adsorbed Allergy Unknown Burning Verified 01/24/20 01:44 [TETANUS TOXOID, ADSORBED] cephalexin [From Keflex] Allergy Burning Verified 01/24/20 01:44 sensation clarithromycin [From Biaxin] Allergy Hallucinati Verified 01/24/20 01:44 ng metformin Allergy nausea and Verified 01/24/20 01:44 vomiting sulfamethoxazole Allergy Hallucinati Verified 01/24/20 01:44 [From Bactrim] ng trimethoprim [From Bactrim] Allergy Hallucinati Verified 01/24/20 01:44 ng Exam Vital signs and Labs for Last 24 Hours: Temp Pulse Resp BP Pulse Ox 98.6 F 55 L 18 112/36 L 92 L 01/24/20 07:33 01/24/20 07:33 01/24/20 07:33 01/24/20 07:33 01/24/20 07:33 Laboratory Results - last 24 hr 01/23/20 21:58: POC Glucose 465 H* 01/23/20 22:05: WBC 17.7 H, RBC 4.51, Hgb 13.3, Hct 42.4, MCV 93.8, MCH 29.6, M CHC 31.5 L, RDW 13.9, Plt Count 368, MPV 7.6, Neut % (Auto) 78.2, Lymph % (Auto) 15.0, [place] % (Auto) 6.0, Eos % (Auto) 0.6, Baso % (Auto) 0.3, Neut # (Auto) 13.8 H, Lymph # (Auto) 2.7, [place] # (Auto) 1.1 H, Eos # (Auto) 0.1, Baso # (Auto) 0.1, Total Counted 100, Neutrophils % (Manual) 86 H, Lymphocytes % (Manual) 13, Monocytes % (Manual) 1 L, Platelet Estimate Normal, Stomatocytes 1+, ESR 10 01/23/20 22:05: Sodium 126 L, Potassium 5.1, Chloride 87 L, Carbon Dioxide 27, Anion Gap 17.1 H, BUN 43 H, Creatinine 1.10 H, Estimated Creat Clear 33, [place] mated GFR 48 L, Est GFR ( Amer) 58 L, Glucose 436 H*, Calcium 11.2 H, Total Bilirubin 0.3, AST 245 H, ALT 152 H, Alkaline Phosphatase 128 H, Troponin I < 0.01, C-Reactive Protein 1.3, Total Protein 7.9, Albumin 4.6, Globulin 3.3 H , Albumin/Globulin Ratio 1.4, Amylase 109, Lipase 454 H, Acetone Level None detected 01/23/20 22:05: Digoxin 0.90 01/23/20 22:13: Urine Color Yellow, Urine Appearance Clear, Urine pH 5.5, Ur Specific [place] >= 1.030, Urine Protein Negative, Urine Glucose (UA) 2+, Urine Ketones Trace, Urine Blood Negative, Urine Nitrate Positive, Urine Bilirubin Negative, Urine Urobilinogen 0.2, Ur Leukocyte Esterase 1+ A, Urine WBC 5-10, Ur Squamous Epith Cells 5-10, Urine Bacteria Trace 01/23/20 23:35: Lactate 1.6 01/24/20 00:19: POC Glucose 376 H* 01/24/20 01:15: Troponin I < 0.01 01/24/20 04:15: Troponin I < 0.01 01/24/20 04:15: WBC 13.4 H, RBC 4.02 L, Hgb 12.1 L, Hct 36.5 L, MCV 90.7, MCH 30.0, MCHC 33.1, RDW 14.0, Plt Count 328, MPV 8.4, Neut % (Auto) 67.1, Lymph % (Auto) 24.8, [place] % (Auto) 7.2, Eos % (Auto) 0.7, Baso % (Auto) 0.3, Neut # (Auto) 9.0 H, Lymph # (Auto) 3.3, [place] # (Auto) 1.0, Eos # (Auto) 0.1, Baso # (Auto) 0.0 01/24/20 04:15: Sodium 132 L, Potassium 4.8, Chloride 95 L, Carbon Dioxide 28, Anion Gap 13.8, BUN 32 H D, Creatinine 0.90, Estimated Creat Clear 36, Estimated GFR 60, Est GFR ( Amer) 73 D, Glucose 286 H D, Calcium 9.9 D 01/24/20 06:21: POC Glucose 258 H I & O for Last 24 hours: Intake & Output 01/21/20 01/22/20 01/23/20 01/24/20 11:59 11:59 11:59 11:59 Intake Total 2368 / 2368 Balance 2368 / 2368 Weight 116 lb 2.938 oz Microbiology Reports for the Last 24 Hours: Microbiology 01/23/20 22:13 Urine,Clean Catch Urine Culture - Preliminary - Constitutional no acute distress - *Routine Respiratory Exam Absent: respiratory distress - *Routine Cardiovascular Exam Present: RRR - *Routine Abdominal Exam Present: soft Comments: Mild tenderness. Minimal distention inferiorly (possibly secondary to "full bladder") Results - Labs 01/24/20 04:15 01/24/20 04:15 Laboratory Results - last 24 hr 01/23/20 21:58: POC Glucose 465 H* 01/23/20 22:05: WBC 17.7 H, RBC 4.51, Hgb 13.3, Hct 42.4, MCV 93.8, MCH 29.6, MCHC 31.5 L, RDW 13.9, Plt Count 368, MPV 7.6, Neut % (Auto) 78.2, Lymph % (Auto) 15.0, [place] % (Auto) 6.0, Eos % (Auto) 0.6, Baso % (Auto) 0.3, Neut # (Auto) 13.8 H, Lymph # (Auto) 2.7, [place] # (Auto) 1.1 H, Eos # (Auto) 0.1, Baso # (Auto) 0.1, Total Counted 100, Neutrophils % (Manual) 86 H, Lymphocytes % (Manual) 13, Monocytes % (Manual) 1 L, Platelet Estimate Normal, Stomatocytes 1+, ESR 10 01/23/20 22:05: Sodium 126 L, Potassium 5.1, Chloride 87 L, Carbon Dioxide 27, Anion Gap 17.1 H, BUN 43 H, Creatinine 1.10 H, Estimated Creat Clear 33, Estimated GFR 48 L, Est GFR ( Amer) 58 L, Glucose 436 H*, Calcium 11.2 H, Total Bilirubin 0.3, AST 245 H, ALT 152 H, Alkaline Phosphatase 128 H, Troponin I < 0.01, C-Reactive Protein 1.3, Total Protein 7.9, Albumin 4.6, Globulin 3.3 H , Albumin/Globulin Ratio 1.4, Amylase 109, Lipase 454 H, Acetone Level None detected 01/23/20 22:05: Digoxin 0.90 01/23/20 22:13: Urine Color Yellow, Urine Appearance Clear, Urine pH 5.5, Ur Specific [place] >= 1.030, Urine Protein Negative, Urine Glucose (UA) 2+, Urine Ketones Trace, Urine Blood Negative, Urine Nitrate Positive, Urine Bilirubin Negative, Urine Urobilinogen 0.2, Ur Leukocyte Esterase 1+ A, Urine WBC 5-10, Ur Squamous Epith Cells 5-10, Urine Bacteria Trace 01/23/20 23:35: Lactate 1.6 01/24/20 00:19: POC Glucose 376 H* 01/24/20 01:15: Troponin I < 0.01 01/24/20 04:15: Troponin I < 0.01 01/24/20 04:15: WBC 13.4 H, RBC 4.02 L, Hgb 12.1 L, Hct 36.5 L, MCV 90.7, MCH 30.0, MCHC 33.1, RDW 14.0, Plt Count 328, MPV 8.4, Neut % (Auto) 67.1, Lymph % (Auto) 24.8, [place] % (Auto) 7.2, Eos % (Auto) 0.7, Baso % (Auto) 0.3, Neut # (Auto) 9.0 H, Lymph # (Auto) 3.3, [place] # (Auto) 1.0, Eos # (Auto) 0.1, Baso # (Auto) 0.0 01/24/20 04:15: Sodium 132 L, Potassium 4.8, Chloride 95 L, Carbon Dioxide 28, Anion Gap 13.8, BUN 32 H D, Creatinine 0.90, Estimated Creat Clear 36, Estimated GFR 60, Est GFR ( Amer) 73 D, Glucose 286 H D, Calcium 9.9 D 01/24/20 06:21: POC Glucose 258 H - Imaging CT scan - abdomen: report reviewed, image reviewed CT scan - pelvis: report reviewed, image reviewed (discussed with Dr. Lindsey. Changes on CT c/w SBO (possible transition point noted; however, this is ill- defined)) Assessment and Plan (1) SBO (small bowel obstruction) Current visit: Yes Status: Acute Category: Medical Code(s): K56.609 - Unspecified intestinal obstruction, unspecified as to partial versus complete obstruction Clinically improving in terms of nausea/abdominal pain. Follow-up pending flat/upright films Continue serial abdominal exams (2) Leucocytosis Current visit: No Status: Acute Category: Medical Code(s): D72.829 - Elevated white blood cell count, unspecified (3) Renal insufficiency Current visit: Yes Status: Acute Category: Medical Code(s): N28.9 - Disorder of kidney and ureter, unspecified (4) Low back pain Current visit: No Status: Acute Qualifiers: Chronicity: chronic Back pain laterality: right Sciatica presence: with sciatica Sciatica laterality: sciatica of right side Qualified Code(s): M54.41 - Lumbago with sciatica, right side; G89.29 - Other chronic pain Category: Medical Code(s): M54.5 - Low back pain (5) Diabetes mellitus Current visit: Yes Status: Chronic Qualifiers: Diabetes mellitus type: type 2 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 Diabetes mellitus complication status: with other specified complication Qualified Code(s): E11.69 - Type 2 diabetes mellitus with other specified complication Category: Medical Code(s): E11.9 - Type 2 diabetes mellitus without complications (6) History of endometrial cancer Current visit: Yes Status: Chronic Category: Medical Code(s): Z85.42 - Personal history of malignant neoplasm of other parts of uterus (7) History of bladder cancer Current visit: Yes Status: Chronic Category: Medical Code(s): Z85.51 - Personal history of malignant neoplasm of bladder (8) History of atrial fibrillation Current visit: Yes Status: Chronic Category: Medical Code(s): Z86.79 - Personal history of other diseases of the circulatory system (9) COPD (chronic obstructive pulmonary disease) Current visit: Yes Status: Chronic Category: Medical Code(s): J44.9 - Chronic obstructive pulmonary disease, unspecified (10) Chronic leg pain Current visit: No Status: Chronic Qualifiers: Laterality: left Qualified Code(s): M79.605 - Pain in left leg; G89.29 - Other chronic pain Category: Medical Code(s): M79.606 - Pain in leg, unspecified; G89.29 - Other chronic pain (11) DJD (degenerative joint disease), lumbar Current visit: No Status: Chronic Qualifiers: Spinal osteoarthritis complication: with radiculopathy Qualified Code(s): M47.26 - Other spondylosis with radiculopathy, lumbar region Category: Medical Code(s): M47.816 - Spondylosis without myelopathy or radi culopathy, lumbar region
[2020-01-25 07:05] LABS: Basophils # 0.1 K/mm3 (0-0.2); Basophils % 0.4 % (0.1-2.0); Eosinophils # 0.1 K/mm3 (0.0-0.4); Eosinophils % 0.7 % (0.1-12.0); Hematocrit 38.1 % (37.0-47.0); Hemoglobin 12.4 g/dL (12.2-16.2); Lymphocytes # 3.2 K/mm3 (0.7-4.5); Lymphocytes % 27.2 % (10-50); Mean Corpuscular HGB Conc 32.6 g/dL (31.8-35.4); Mean Platelet Volume 7.4 fl (7.4-10.4); Neutrophils # 7.6 K/mm3 (1.8-7.8); Neutrophils % 63.7 % (37.0-80.0); Platelet Count 283 K/mm3 (142-424); Red Blood Count 4.14 M/mm3 (4.20-5.40); Red Cell Distribution Width 14.1 % (11.5-17.5); White Blood Count 11.9 K/mm3 (4.8-10.8)
[2020-01-25 07:11] LABS: Anion Gap 10.5 mEq/L (5-15)
--- NOTE | 2020-01-25 08:07 | Progress Note ---
<Giselle Reed - Last Filed: 01/25/20 08:04> Internal Medicine - PN: Subj *Date: 01/25/20 *Time: 08:04 Interval history: Patient states her bowels moved yesterday and she has been tolerating a clear liquid diet. She denies any abdominal pain. She states she is hurting in her right buttock area and it's radiating into her right groin. The pain is excruciating and is keeping her from sleeping and resting. She states she needs something for this pain. Exam Vital signs and Labs for Last 24 Hours: Temp Pulse Resp BP Pulse Ox 99.2 F 97 H 18 119/80 92 L 01/25/20 04:00 01/25/20 04:00 01/25/20 04:00 01/25/20 04:00 01/25/20 04:00 Laboratory Results - last 24 hr 01/24/20 11:30: POC Glucose 156 H 01/24/20 16:45: POC Glucose 180 H 01/24/20 20:23: POC Glucose 117 H 01/25/20 06:35: WBC 11.9 H, RBC 4.14 L, Hgb 12.4, Hct 38.1, MCV 92.0, MCH 30.0, MCHC 32.6, RDW 14.1, Plt Count 283, MPV 7.4, Neut % (Auto) 63.7, Lymph % (Auto) 27.2, [place] % (Auto) 8.0, Eos % (Auto) 0.7, Baso % (Auto) 0.4, Neut # (Auto) 7.6, Lymph # (Auto) 3.2, [place] # (Auto) 1.0, Eos # (Auto) 0.1, Baso # (Auto) 0.1 01/25/20 06:35: Sodium 136, Potassium 3.5 D, Chloride 100, Carbon Dioxide 29, Anion Gap 10.5, BUN 10 D, Creatinine 0.60 D, Estimated Creat Clear 36, Estimated GFR 96, Est GFR ( Amer) 116 D, Glucose 187 H, Calcium 9.0 01/25/20 06:39: POC Glucose 190 H I & O for Last 24 hours: Intake & Output 03/24/20 03/25/20 03/26/20 03/27/20 11:59 11:59 11:59 11:59 Intake Total 2368 / 2368 2170 / 2170 Output Total 750 / 750 Balance 2368 / 2368 1420 / 1420 Weight 116 lb 2.938 oz 115 lb 15.41 oz Microbiology Reports for the Last 24 Hours: Microbiology 01/23/20 22:13 Urine,Clean Catch Urine Culture - Preliminary Radiology Reports for the Last 24 Hours: Abdominal x-ray - Improvement in the appearance of small-bowel obstruction with constipation - Constitutional no acute distress - *Routine Respiratory Exam Present: CTA bilaterally - *Routine Cardiovascular Exam Present: RRR - *Routine Abdominal Exam Present: soft, normoactive bowel sounds. Absent: tenderness - *Routine Extremities Exam Absent: cyanosis, clubbing, edema - Routine Back/Spine/Pelvis Exam Comments: Tenderness to palpation in the right piriformis area and pain with figure 4 test. - *Routine Skin Exam Present: warm. Absent: rash - *Routine Neurological Exam Present: alert, oriented X3 Assessment and Plan (1) SBO (small bowel obstruction) Current visit: Yes Status: Acute Category: Medical Code(s): K56.609 - Unspecified intestinal obstruction, unspecified as to partial versus complete obstruction (2) Leucocytosis Current visit: No Status: Acute Category: Medical Code(s): D72.829 - Elevated white blood cell count, unspecified (3) Renal insufficiency Current visit: Yes Status: Acute Category: Medical Code(s): N28.9 - Disord er of kidney and ureter, unspecified (4) Low back pain Current visit: No Status: Acute Qualifiers: Chronicity: chronic Back pain laterality: right Sciatica presence: with sciatica Sciatica laterality: sciatica of right side Qualified Code(s): M54.41 - Lumbago with sciatica, right side; G89.29 - Other chronic pain Category: Medical Code(s): M54.5 - Low back pain (5) Diabetes mellitus Current visit: Yes Status: Chronic Qualifiers: Diabetes mellitus type: type 2 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 Diabetes mellitus complication status: with other specified complication Qualified Code(s): E11.69 - Type 2 diabetes mellitus with other specified complication Category: Medical Code(s): E11.9 - Type 2 diabetes mellitus without complications (6) History of endometrial cancer Current visit: Yes Status: Chronic Category: Medical Code(s): Z85.42 - Personal history of malignant neoplasm of other parts of uterus (7) History of bladder cancer Current visit: Yes Status: Chronic Category: Medical Code(s): Z85.51 - Personal history of malignant neoplasm of bladder (8) History of atrial fibrillation Current visit: Yes Status: Chronic Category: Medical Code(s): Z86.79 - Personal history of other diseases of the circulatory system (9) COPD (chronic obstructive pulmonary disease) Current visit: Yes Status: Chronic Category: Medical Code(s): J44.9 - Chronic obstructive pulmonary disease, unspecified (10) Chronic leg pain Current visit: No Status: Chronic Qualifiers: Laterality: left Qualified Code(s): M79.605 - Pain in left leg; G89.29 - Other chronic pain Category: Medical Code(s): M79.606 - Pain in leg, unspecified; G89.29 - Other chronic pain (11) DJD (degenerative joint disease), lumbar Current visit: No Status: Chronic Qualifiers: Spinal osteoarthritis complication: with radiculopathy Qualified Code(s): M47.26 - Other spondylosis with radiculopathy, lumbar region Category: Medical Code(s): M47.816 - Spondylosis without myelopathy or radiculopathy, lumbar region - Assessment and plan all Dx Assessment and Plan for all problems:: X-ray shows improvement in small bowel obstruction. Dr. Urrutia feels the patient can have a full liquid diet and can be discharged when medically stable. The patient appears to have piriformis syndrome. Pain medicine constipates her, therefore she may need some steroids. Will discuss with Dr. Atkins. <Kb Atkins - Last Filed: 01/25/20 08:48> Internal Medicine - PN: Subj *Date: 01/25/20 *Time: 08:46 Exam Vital signs and Labs for Last 24 Hours: Temp Pulse Resp BP Pulse Ox 99.2 F 97 H 18 119/80 92 L 01/25/20 04:00 01/25/20 04:00 01/25/20 04:00 01/25/20 04:00 01/25/20 04:00 Laboratory Results - last 24 hr 01/23/20 22:13: Urine Color Yellow, Urine Appearance Clear, Urine pH 5.5, Ur Specific [place] >= 1.030, Urine Protein Negative, Urine Glucose (UA) 2+, Urine Ketones Trace, Urine Blood Negative, Urine Nitrate Positive, Urine Bilirubin Negative, Urine Urobilinogen 0.2, Ur Leukocyte Esterase 1+ A, Urine WBC 5-10, Ur Squamous Epith Cells 5-10, Urine Bacteria Trace 01/24/20 11:30: POC Glucose 156 H 01/24/20 16:45: POC Glucose 180 H 01/24/20 20:23: POC Glucose 117 H 01/25/20 06:35: WBC 11.9 H, RBC 4.14 L, Hgb 12.4, Hct 38.1, MCV 92.0, MCH 30.0, MCHC 32.6, RDW 14.1, Plt Count 283, MPV 7.4, Neut % (Auto) 63.7, Lymph % (Auto) 27.2, [place] % (Auto) 8.0, Eos % (Auto) 0.7, Baso % (Auto) 0.4, Neut # (Auto) 7.6, Lymph # (Auto) 3.2, [place] # (Auto) 1.0, Eos # (Auto) 0.1, Baso # (Auto) 0.1 01/25/20 06:35: Sodium 136, Potassium 3.5 D, Chloride 100, Carbon Dioxide 29, Anion Gap 10.5, BUN 10 D, Creatinine 0.60 D, Estimated Creat Clear 36, Estimated GFR 96, Est GFR ( Amer) 116 D, Glucose 187 H, Calcium 9.0 01/25/20 06:39: POC Glucose 190 H I & O for Last 24 hours: Intake & Output 01/22/20 01/23/20 01/24/20 01/25/20 23:59 23:59 23:59 23:59 Intake Total 3898 / 3898 640 / 640 Output Total 750 / 750 Balance 3148 / 3148 640 / 640 Weight 117 lb 116 lb 2.938 oz 115 lb 15.41 oz Microbiology Reports for the Last 24 Hours: Microbiology 01/23/20 22:13 Urine,Clean Catch Urine Culture - Preliminary Gram Negative Rods Assessment and Plan (1) SBO (small bowel obstruction) Current visit: Yes Status: Acute Category: Medical Code(s): K56.609 - Unspecified intestinal obstruction, unspecified as to partial versus complete obstruction (2) Leucocytosis Current visit: No Status: Acute Category: Medical Code(s): D72.829 - Elevated white blood cell count, unspecified (3) Renal insufficiency Current visit: Yes Status: Acute Category: Medical Code(s): N28.9 - Disorder of kidney and ureter, unspecified (4) Low back pain Current visit: No Status: Acute Qualifiers: Chronicity: chronic Back pain laterality: right Sciatica presence: with sciatica Sciatica laterality: sciatica of right side Qualified Code(s): M54.41 - Lumbago with sciatica, right side; G89.29 - Other chronic pain Category: Medical Code(s): M54.5 - Low back pain (5) Diabetes mellitus Current visit: Yes Status: Chronic Qualifiers: Diabetes mellitus type: type 2 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 Diabetes mellitus complication status: with other specified complication Qualified Code(s): E11.69 - Type 2 diabetes mellitus with other specified complication Category: Medical Code(s): E11.9 - Type 2 diabetes mellitus without complications (6) History of endometrial cancer Current visit: Yes Status: Chronic Category: Medical Code(s): Z85.42 - Personal history of malignant neoplasm of other parts of uterus (7) History of bladder cancer Current visit: Yes Status: Chronic Category: Medical Code(s): Z85.51 - Personal history of malignant neoplasm of bladder (8) History of atrial fibrillation Current visit: Yes Status: Chronic Category: Medical Code(s): Z86.79 - Personal history of other diseases of the circulatory system (9) COPD (chronic obstructive pulmonary disease) Current visit: Yes Status: Chronic Category: Medical Code(s): J44.9 - Chronic obstructive pulmonary disease, unspecified (10) Chronic leg pain Current visit: No Status: Chronic Qualifiers: Laterality: left Qualified Code(s): M79.605 - Pain in left leg; G89.29 - Other chronic pain Category: Medical Code(s): M79.606 - Pain in leg, unspecified; G89.29 - Other chronic pain (11) DJD (degenerative joint disease), lumbar Current visit: No Status: Chronic Qualifiers: Spinal osteoarthritis complication: with radiculopathy Qualified Code(s): M47.26 - Other spondylosis with radiculopathy, lumbar region Category: Medical Code(s): M47.816 - Spondylosis without myelopathy or radiculopathy, lumbar region (12) Dehydration Current visit: Yes Status: Acute Category: Medical Code(s): E86.0 - Dehydration (13) Hyponatremia Current visit: Yes Status: Acute Category: Medical Code(s): E87.1 - Hypo- osmolality and hyponatremia (14) Acute hyperglycemia Current visit: Yes Status: Acute Category: Medical Code(s): R73.9 - Hyperglycemia, unspecified (15) Sciatica Current visit: No Status: Acute Category: Medical Code(s): M54.30 - Sciatica, unspecified side - Assessment and plan all Dx Assessment and Plan for all problems:: Saw patient, she has improved, advance diet and increase Gabapentin dose, possible home later today.
--- NOTE | 2020-01-25 08:12 | Progress Note ---
Subjective Patient reports: flatus Narrative: She states that she is having no abdominal pain. She continues to pass what she describes as "lots of gas". Exam Vital signs and Labs for Last 24 Hours: Temp Pulse Resp BP Pulse Ox 99.2 F 97 H 18 119/80 92 L 01/25/20 04:00 01/25/20 04:00 01/25/20 04:00 01/25/20 04:00 01/25/20 04:00 Laboratory Results - last 24 hr 01/24/20 11:30: POC Glucose 156 H 01/24/20 16:45: POC Glucose 180 H 01/24/20 20:23: POC Glucose 117 H 01/25/20 06:35: WBC 11.9 H, RBC 4.14 L, Hgb 12.4, Hct 38.1, MCV 92.0, MCH 30.0, MCHC 32.6, RDW 14.1, Plt Count 283, MPV 7.4, Neut % (Auto) 63.7, Lymph % (Auto) 27.2, Lake % (Auto) 8.0, Eos % (Auto) 0.7, Baso % (Auto) 0.4, Neut # (Auto) 7.6, Lymph # (Auto) 3.2, [place] # (Auto) 1.0, Eos # (Auto) 0.1, Baso # (Auto) 0.1 01/25/20 06:35: Sodium 136, Potassium 3.5 D, Chloride 100, Carbon Dioxide 29, Anion Gap 10.5, BUN 10 D, Creatinine 0.60 D, Estimated Creat Clear 36, Estimated GFR 96, Est GFR ( Amer) 116 D, Glucose 187 H, Calcium 9.0 01/25/20 06:39: POC Glucose 190 H I & O for Last 24 hours: Intake & Output 01/22/20 01/23/20 01/24/20 01/25/20 11:59 11:59 11:59 11:59 Intake Total 2368 / 2368 2170 / 2170 Output Total 750 / 750 Balance 2368 / 2368 1420 / 1420 Weight 116 lb 2.938 oz 115 lb 15.41 oz Microbiology Reports for the Last 24 Hours: Microbiology 01/23/20 22:13 Urine,Clean Catch Urine Culture - Preliminary - Constitutional no acute distress - *Routine Respiratory Exam Absent: respiratory distress - *Routine Cardiovascular Exam Present: RRR - *Routine Abdominal Exam Present: soft Progress Note: A&P (1) SBO (small bowel obstruction) Status: Acute Assessment and plan: She continues to pass flatus. Bowel gas pattern on a.m. films improved. Slowly advance diet (agree with full liquid diet ordered by primary service) Current Visit: Yes (2) Leucocytosis Status: Acute Current Visit: No (3) Renal insufficiency Status: Acute Current Visit: Yes (4) Low back pain Status: Acute Current Visit: No (5) Diabetes mellitus Status: Chronic Current Visit: Yes (6) History of endometrial cancer Status: Chronic Current Visit: Yes (7) History of bladder cancer Status: Chronic Current Visit: Yes (8) History of atrial fibrillation Status: Chronic Current Visit: Yes (9) COPD (chronic obstructive pulmonary disease) Status: Chronic Current Visit: Yes (10) Chronic leg pain Status: Chronic Current Visit: No (11) DJD (degenerative joint disease), lumbar Status: Chronic Current Visit: No
--- NOTE | 2020-01-25 13:50 | Progress Note ---
Internal Medicine - PN: Subj *Date: 01/25/20 *Time: 13:49 Exam Vital signs and Labs for Last 24 Hours: Temp Pulse Resp BP Pulse Ox 98.7 F 95 H 17 111/75 94 L 01/25/20 08:00 01/25/20 08:00 01/25/20 08:00 01/25/20 08:00 01/25/20 08:00 Laboratory Results - last 24 hr 01/23/20 22:13: Urine Color Yellow, Urine Appearance Clear, Urine pH 5.5, Ur Specific Grant >= 1.030, Urine Protein Negative, Urine Glucose (UA) 2+, Urine Ketones Trace, Urine Blood Negative, Urine Nitrate Positive, Urine Bilirubin Negative, Urine Urobilinogen 0.2, Ur Leukocyte Esterase 1+ A, Urine WBC 5-10, Ur Squamous Epith Cells 5-10, Urine Bacteria Trace 01/24/20 16:45: POC Glucose 180 H 01/24/20 20:23: POC Glucose 117 H 01/25/20 06:35: WBC 11.9 H, RBC 4.14 L, Hgb 12.4, Hct 38.1, MCV 92.0, MCH 30.0, MCHC 32.6, RDW 14.1, Plt Count 283, MPV 7.4, Neut % (Auto) 63.7, Lymph % (Auto) 27.2, Coleman % (Auto) 8.0, Eos % (Auto) 0.7, Baso % (Auto) 0.4, Neut # (Auto) 7.6, Lymph # (Auto) 3.2, Coleman # (Auto) 1.0, Eos # (Auto) 0.1, Baso # (Auto) 0.1 01/25/20 06:35: Sodium 136, Potassium 3.5 D, Chloride 100, Carbon Dioxide 29, Anion Gap 10.5, BUN 10 D, Creatinine 0.60 D, Estimated Creat Clear 36, Estimated GFR 96, Est GFR ( Amer) 116 D, Glucose 187 H, Calcium 9.0 01/25/20 06:39: POC Glucose 190 H 01/25/20 11:28: POC Glucose 328 H* I & O for Last 24 hours: Intake & Output 01/22/20 01/23/20 01/24/20 01/25/20 23:59 23:59 23:59 23:59 Intake Total 3998 / 3998 1600 / 1600 Output Total 750 / 750 Balance 3248 / 3248 1600 / 1600 Weight 117 lb 116 lb 2.938 oz 115 lb 15.41 oz Microbiology Reports for the Last 24 Hours: Microbiology 01/23/20 22:13 Urine,Clean Catch Urine Culture - Preliminary Gram Negative Rods Assessment and Plan (1) SBO (small bowel obstruction) Current visit: Yes Status: Acute Category: Medical Code(s): K56.609 - Unspecified intestinal obstruction, unspecified as to partial versus complete obstruction (2) Leucocytosis Current visit: No Status: Acute Category: Medical Code(s): D72.829 - Elevated white blood cell count, unspecified (3) Renal insufficiency Current visit: Yes Status: Acute Category: Medical Code(s): N28.9 - Disorder of kidney and ureter, unspecified (4) Low back pain Current visit: No Status: Acute Qualifiers: Chronicity: chronic Back pain laterality: right Sciatica presence: with sciatica Sciatica laterality: sciatica of right side Qualified Code(s): M54.41 - Lumbago with sciatica, right side; G89.29 - Other chronic pain Category: Medical Code(s): M54.5 - Low back pain (5) Diabetes mellitus Current visit: Yes Status: Chronic Qualifiers: Diabetes mellitus type: 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 insulin use status Diabetes mellitus complication status: with other specified complication Qualified Code(s): E11.69 - Type 2 diabetes mellitus with other specified complication Category: Medical Code(s): E11.9 - Type 2 diabetes mellitus without complications (6) History of endometrial cancer Current visit: Yes Status: Chronic Category: Medical Code(s): Z85.42 - Personal history of malignant neoplasm of other parts of uterus (7) History of bladder cancer Current visit: Yes Status: Chronic Category: Medical Code(s): Z85.51 - Personal history of malignant neoplasm of bladder (8) History of atrial fibrillation Current visit: Yes Status: Chronic Category: Medical Code(s): Z86.79 - Personal history of other diseases of the circulatory system (9) COPD (chronic obstructive pulmonary disease) Current visit: Yes Status: Chronic Category: Medical Code(s): J44.9 - Chronic obstructive pulmonary disease, unspecified (10) Chronic leg pain Current visit: No Status: Chronic Qualifiers: Laterality: left Qualified Code(s): M79.605 - Pain in left leg; G89.29 - Other chronic pain Category: Medical Code(s): M79.606 - Pain in leg, unspecified; G89.29 - Other chronic pain (11) DJD (degenerative joint disease), lumbar Current visit: No Status: Chronic Qualifiers: Spinal osteoarthritis complication: with radiculopathy Qualified Code(s): M47.26 - Other spondylosis with radiculopathy, lumbar region Category: Medical Code(s): M47.816 - Spondylosis without myelopathy or radiculopathy, lumbar region (12) Dehydration Current visit: Yes Status: Acute Category: Medical Code(s): E86.0 - Dehydration (13) Hyponatremia Current visit: Yes Status: Acute Category: Medical Code(s): E87.1 - Hypo- osmolality and hyponatremia (14) Acute hyperglycemia Current visit: Yes Status: Acute Category: Medical Code(s): R73.9 - Hyperglycemia, unspecified (15) Sciatica Current visit: No Status: Acute Category: Medical Code(s): M54.30 - Sciatica, unspecified side (16) UTI (urinary tract infection) Current visit: Yes Status: Acute Category: Medical Code(s): N39.0 - Urinary tract infection, site not specified - Assessment and plan all Dx Assessment and Plan for all problems:: UTI added to problem list.
--- NOTE | 2020-01-25 14:33 | Discharge Summary ---
General - General Admission date:: 01/24/20 <Kb Atkins - 01/25/20 16:46> 01/24/20 <Giselle Reed - 01/25/20 14:34> Discharge date: 01/25/20 <Giselle Reed - 01/25/20 14:34> HPI HPI: Ms. Wellington is an 84-year-old female who presented to the office of [facility] on 01/15/2020 with complaints of low back pain. The pain was radiating to her thigh and her groin. She had been to the emergency room and was given Norflex and Solu-Medrol, which helped her pain. She was also prescribed some Flexeril. She followed up in the office with Dr. Alcocer and was started on tramadol and a Medrol Dosepak. She states her back pain never improved. Yesterday she began having diffuse abdominal pain and vomiting. She states she was unable to keep down any solids or liquids. She did have a normal bowel movement yesterday. She was seen in the emergency room for evaluation and had a CT of the abdomen. According to the ER note, it showed a small bowel obstruction and she was admitted and started on IV fluids and was kept n.p.o. <Giselle Reed - 01/25/20 14:34> Hospital Course Hospital Course: The patient's initial chest x-ray showed chronic coarsening of the bronchovascular markings, but no consolidation. Her abdominal and pelvic CT showed moderate grade small bowel obstruction and scattered pancreatic calcifications suggesting chronic pancreatitis. She was admitted and kept n.p.o. and surgery was consulted. By the day after admission, her abdominal pain had improved. She had no further vomiting and was continued on IV fluids, antiemetics, and pain control. A repeat abdominal x-ray was ordered and showed an improved small bowel obstruction. The patient was seen in consultation by Romi Urrutia who felt she could have clear liquids as she was clinically improving. He wanted a follow-up x-ray the next day. She had repeat abdominal x-rays on 01/25/2020 showing improvement in the small bowel obstruction with some constipation. The patient's abdominal pain resolved and she did begin having bowel movements. She was still complaining of excruciating pain in her right buttock area radiating into her right groin. She was started on some steroids and her gabapentin was increased. Her diet was advanced to full liquid diet and she tolerated this with no problems. Her hip and back pain improved with a higher dose of gabapentin. Her urine culture did show growth of gram-negative rods, therefore she was felt to be stable to discharge home on Levaquin for UTI and dexamethasone for her back and leg pain. She will follow-up in the office [facility] in 4 days. <Giselle Reed - 01/25/20 14:34> Objective Vital signs: Temp Pulse Resp BP Pulse Ox 98.7 F 95 H 17 111/75 94 L 01/25/20 08:00 01/25/20 08:00 01/25/20 08:00 01/25/20 08:00 01/25/20 08:00 <MillyKb - 01/25/20 16:46> Temp Pulse Resp BP Pulse Ox 98.7 F 95 H 17 111/75 94 L 01/25/20 08:00 01/25/20 08:00 01/25/20 08:00 01/25/20 08:00 01/25/20 08:00 <Giselle Reed - 01/25/20 14:34> Narrative: - Constitutional no acute distress - *Routine HEENT Exam Head: Present: normocephalic Eye: Present: EOMI, PERRL ENT: Present: mucous membranes dry - *Routine Neck Exam Present: supple. Absent: lymphadenopathy - *Routine Respiratory Exam Present: CTA bilaterally - *Routine Cardiovascular Exam Present: RRR - *Routine Abdominal Exam Present: soft, tenderness (LLQ). Absent: rebound, guarding Comments: Hypoactive BS - *Routine Extremities Exam Absent: cyanosis, clubbing, edema - *Routine Skin Exam Present: warm. Absent: rash - *Routine Neurological Exam Present: alert, oriented X3 <Giselle Reed - 01/25/20 14:34> Results Labs on day of discharge: Labs from last 24 hours 01/25/20 01/25/20 01/25/20 11:28 06:39 06:35 WBC RBC Hgb Hct MCV MCH MCHC RDW Plt Count MPV Neut % (Auto) Lymph % (Auto) Dolores % (Auto) Eos % (Auto) Baso % (Auto) Neut # (Auto) Lymph # (Auto) Dolores # (Auto) Eos # (Auto) Baso # (Auto) Sodium 136 Potassium 3.5 D Chloride 100 Carbon Dioxide 29 Anion Gap 10.5 BUN 10 D Creatinine 0.60 D Estimated Creat Clear 36 Estimated GFR 96 Est GFR ( Amer) 116 D Glucose 187 H POC Glucose 328 H* 190 H Calcium 9.0 Urine Color Urine Appearance Urine pH Ur Specific Franklin Urine Protein Urine Glucose (UA) Urine Ketones Urine Blood Urine Nitrate Urine Bilirubin Urine Urobilinogen Ur Leukocyte Esterase Urine WBC Ur Squamous Epith Cells Urine Bacteria 01/25/20 01/24/20 01/24/20 06:35 20:23 16:45 WBC 11.9 H RBC 4.14 L Hgb 12.4 Hct 38.1 MCV 92.0 MCH 30.0 MCHC 32.6 RDW 14.1 Plt Count 283 MPV 7.4 Neut % (Auto) 63.7 Lymph % (Auto) 27.2 Dolores % (Auto) 8.0 Eos % (Auto) 0.7 Baso % (Auto) 0.4 Neut # (Auto) 7.6 Lymph # (Auto) 3.2 Dolores # (Auto) 1.0 Eos # (Auto) 0.1 Baso # (Auto) 0.1 Sodium Potassium Chloride Carbon Dioxide Anion Gap BUN Creatinine Estimated Creat Clear Estimated GFR Est GFR ( Amer) Glucose POC Glucose 117 H 180 H Calcium Urine Color Urine Appearance Urine pH Ur Specific [place] Urine Protein Urine Glucose (UA) Urine Ketones Urine Blood Urine Nitrate Urine Bilirubin Urine Urobilinogen Ur Leukocyte Esterase Urine WBC Ur Squamous Epith Cells Urine Bacteria 01/23/20 22:13 WBC RBC Hgb Hct MCV MCH MCHC RDW Plt Count MPV Neut % (Auto) Lymph % (Auto) Dolores % (Auto) Eos % (Auto) Baso % (Auto) Neut # (Auto) Lymph # (Auto) Dolores # (Auto) Eos # (Auto) Baso # (Auto) Sodium Potassium Chloride Carbon Dioxide Anion Gap BUN Creatinine Estimated Creat Clear Estimated GFR Est GFR ( Amer) Glucose POC Glucose Calcium Urine Color Yellow Urine Appearance Clear Urine pH 5.5 Ur Specific Franklin >= 1.030 Urine Protein Negative Urine Glucose (UA) 2+ Urine Ketones Trace Urine Blood Negative Urine Nitrate Positive Urine Bilirubin Negative Urine Urobilinogen 0.2 Ur Leukocyte Esterase 1+ A Urine WBC 5-10 Ur Squamous Epith Cells 5-10 Urine Bacteria Trace Preliminary micro results at discharge 01/23/20 22:13 Urine Culture - Preliminary Urine,Clean Catch Gram Negative Rods <[place],Kb - 01/25/20 16:46> Labs from last 24 hours 01/25/20 01/25/20 01/25/20 11:28 06:39 06:35 WBC RBC Hgb Hct MCV MCH MCHC RDW Plt Count MPV Neut % (Auto) Lymph % (Auto) Dolores % (Auto) Eos % (Auto) Baso % (Auto) Neut # (Auto) Lymph # (Auto) Dolores # (Auto) Eos # (Auto) Baso # (Auto) Sodium 136 Potassium 3.5 D Chloride 100 Carbon Dioxide 29 Anion Gap 10.5 BUN 10 D Creatinine 0.60 D Estimated Creat Clear 36 Estimated GFR 96 Est GFR ( Amer) 116 D Glucose 187 H POC Glucose 328 H* 190 H Calcium 9.0 Urine Color Urine Appearance Urine pH Ur Specific [place] Urine Protein Urine Glucose (UA) Urine Ketones Urine Blood Urine Nitrate Urine Bilirubin Urine Urobilinogen Ur Leukocyte Esterase Urine WBC Ur Squamous Epith Cells Urine Bacteria 01/25/20 01/24/20 01/24/20 06:35 20:23 16:45 WBC 11.9 H RBC 4.14 L Hgb 12.4 Hct 38.1 MCV 92.0 MCH 30.0 MCHC 32.6 RDW 14.1 Plt Count 283 MPV 7.4 Neut % (Auto) 63.7 Lymph % (Auto) 27.2 Dolores % (Auto) 8.0 Eos % (Auto) 0.7 Baso % (Auto) 0.4 Neut # (Auto) 7.6 Lymph # (Auto) 3.2 Dolores # (Auto) 1.0 Eos # (Auto) 0.1 Baso # (Auto) 0.1 Sodium Potassium Chloride Carbon Dioxide Anion Gap BUN Creatinine Estimated Creat Clear Estimated GFR Est GFR ( Amer) Glucose POC Glucose 117 H 180 H Calcium Urine Color Urine Appearance Urine pH Ur Specific [place] Urine Protein Urine Glucose (UA) Urine Ketones Urine Blood Urine Nitrate Urine Bilirubin Urine Urobilinogen Ur Leukocyte Esterase Urine WBC Ur Squamous Epith Cells Urine Bacteria 01/23/20 22:13 WBC RBC Hgb Hct MCV MCH MCHC RDW Plt Count MPV Neut % (Auto) Lymph % (Auto) Dolores % (Auto) Eos % (Auto) Baso % (Auto) Neut # (Auto) Lymph # (Auto) Dolores # (Auto) Eos # (Auto) Baso # (Auto) Sodium Potassium Chloride Carbon Dioxide Anion Gap BUN Creatinine Estimated Creat Clear Estimated GFR Est GFR ( Amer) Glucose POC Glucose Calcium Urine Color Yellow Urine Appearance Clear Urine pH 5.5 Ur Specific Franklin >= 1.030 Urine Protein Negative Urine Glucose (UA) 2+ Urine Ketones Trace Urine Blood Negative Urine Nitrate Positive Urine Bilirubin Negative Urine Urobilinogen 0.2 Ur Leukocyte Esterase 1+ A Urine WBC 5-10 Ur Squamous Epith Cells 5-10 Urine Bacteria Trace Preliminary micro results at discharge 01/23/20 22:13 Urine Culture - Preliminary Urine,Clean Catch Gram Negative Rods <Giselle Reed - 01/25/20 14:34> DS: Diagnosis - Discharge Diagnosis (1) SBO (small bowel obstruction) Status: Acute (2) Leucocytosis Status: Acute (3) Renal insufficiency Status: Acute (4) Low back pain Status: Acute (5) Diabetes mellitus Status: Chronic (6) History of endometrial cancer Status: Chronic (7) History of bladder cancer Status: Chronic (8) History of atrial fibrillation Status: Chronic (9) COPD (chronic obstructive pulmonary disease) Status: Chronic (10) Chronic leg pain Status: Chronic (11) DJD (degenerative joint disease), lumbar Status: Chronic (12) Dehydration Status: Acute (13) Hyponatremia Status: Acute (14) Acute hyperglycemia Status: Acute (15) Sciatica Status: Acute (16) UTI (urinary tract infection) Status: Acute <Kb Atkins - 01/25/20 16:46> (1) SBO (small bowel obstruction) Status: Acute (2) Leucocytosis Status: Acute (3) Renal insufficiency Status: Acute (4) Low back pain Status: Acute (5) Diabetes mellitus Status: Chronic (6) History of endometrial cancer Status: Chronic (7) History of bladder cancer Status: Chronic (8) History of atrial fibrillation Status: Chronic (9) COPD (chronic obstructive pulmonary disease) Status: Chronic (10) Chronic leg pain Status: Chronic (11) DJD (degenerative joint disease), lumbar Status: Chronic (12) Dehydration Status: Acute (13) Hyponatremia Status: Acute (14) Acute hyperglycemia Status: Acute (15) Sciatica Status: Acute (16) UTI (urinary tract infection) Status: Acute <Giselle Reed - 01/25/20 14:28> Discharge Plan - Patient Discharge Instructions ACTIVITY: Continue current activity <Giselle Reed - 01/25/20 14:34> DIET: advance to your usual diet <Giselle Reed - 01/25/20 14:34> Patient Instructions: Urinary Tract Infection, DI for Small Bowel Obstruction, Acute Renal Failure <Kb Atkins - 01/25/20 16:46> Forms: <Kb Atkins - 01/25/20 16:46> - Follow up Plan Follow up with: Kb Atkins MD [Primary Care Provider] - 01/29/20 9:30 am <Kb Atkins - 01/25/20 16:46> Disposition: Home, Self-Care <Kb Atkins - 01/25/20 16:46> Home Medications: Home Medications Medication Instructions Recorded Confirmed Type Digoxin [Digitek] 125 mcg PO DAILY 04/22/18 01/24/20 History Rivaroxaban [Xarelto 20mg Tablet*] 20 mg PO DAILY 04/22/18 01/24/20 History Sitagliptin Phosphate [Januvia 100 mg PO DAILY 04/22/18 01/24/20 History 100mg tablet] dilTIAZem HCl [Diltiazem 240mg 240 mg PO DAILY 08/13/18 01/24/20 History 24Hr ER Cap] Cyclobenzaprine HCl 5 mg PO Q8H PRN 10 Days #30 tab 01/14/20 01/24/20 Rx [Cyclobenzaprine 5mg Tab] Ascorbic Acid [Vitamin C] 1,000 mg PO DAILY 01/24/20 01/24/20 History Cholecalciferol (Vitamin D3) 3,000 unit PO DAILY 01/24/20 01/24/20 History [Vitamin D3] Cyanocobalamin (Vitamin B-12) 1,000 mcg PO DAILY 01/24/20 01/24/20 History [Vitamin B-12] Gabapentin [Gabapentin 300mg Cap] 300 mg PO DAILY 01/24/20 01/24/20 History Glimepiride [Amaryl] 4 mg PO DAILY 01/24/20 01/24/20 History Pioglitazone HCl [Actos 30mg 30 mg PO DAILYDM 01/24/20 01/24/20 History tablet] dexAMETHasone [Dexamethasone] 2 mg PO BID #10 tab 01/25/20 Rx levoFLOXacin [Levaquin 500mg 500 mg PO DAILY #5 tab 01/25/20 Rx tab] <Kb Atkins - 01/25/20 16:46> Prescriptions/Medication Reconciliation: New dexAMETHasone [Dexamethasone] 2 mg PO BID #10 tab levoFLOXacin [Levaquin 500mg tab] 500 mg PO DAILY #5 tab Continued Sitagliptin Phosphate [Januvia 100mg tablet] 100 mg PO DAILY Rivaroxaban [Xarelto 20mg Tablet*] 20 mg PO DAILY Digoxin [Digitek] 125 mcg PO DAILY dilTIAZem HCl [Diltiazem 240mg 24Hr ER Cap] 240 mg PO DAILY Cyclobenzaprine HCl [Cyclobenzaprine 5mg Tab] 5 mg PO Q8H PRN 10 Days #30 tab PRN Reason: Muscle Spasm Cyanocobalamin (Vitamin B-12) [Vitamin B-12] 1,000 mcg PO DAILY Cholecalciferol (Vitamin D3) [Vitamin D3] 3,000 unit PO DAILY Pioglitazone HCl [Actos 30mg tablet] 30 mg PO DAILYDM Ascorbic Acid [Vitamin C] 1,000 mg PO DAILY Glimepiride [Amaryl] 4 mg PO DAILY Gabapentin [Gabapentin 300mg Cap] 300 mg PO DAILY Discontinued Tramadol HCl/Acetaminophen [Ultracet 37.5/325mg tablet] 1 tab PO QIDP PRN PRN Reason: PAIN <Kb Atkins - 01/25/20 16:46> - Problem Reconciliation Problems Reviewed?: Yes <Kb Atkins - 01/25/20 16:46> Yes <Giselle Reed - 01/25/20 14:34>
--- NOTE | 2020-01-25 21:22 | Electrocardiograph Report ---
APPROVED REPORT Exam: Resting ECG HR:59 bpm ECG Measurements Heart Rate 59 AXES IA 202 P 31 QRSd 84 QRS 14 QT 410 T94 QTc 405 <Conclusion> Sinus bradycardia Septal infarct, age undetermined Abnormal ECG Electronically signed by : Joby Newton, 01/25/2020 21:21:36
== END 2020-01-25 15:20 | disposition home or self-care (01) ==
LOC: ER 21:51 → 2ND 01-24 00:05 → INTOOBSV 01-24 00:40 → 2ND 01-24 00:42
PROVIDERS: ADMIT Family Medicine; ATTEND Family Medicine
DX: Z86.73 Personal history of transient ischemic attack (TIA), and cerebral infarction without residual deficits; Z90.49 Acquired absence of other specified parts of digestive tract; K56.600 Partial intestinal obstruction, unspecified as to cause; Z85.51 Personal history of malignant neoplasm of bladder; Z90.710 Acquired absence of both cervix and uterus; Z87.39 Personal history of other diseases of the musculoskeletal system and connective tissue; Z83.3 Family history of diabetes mellitus; Z88.8 Allergy status to other drugs, medicaments and biological substances; E86.0 Dehydration; J44.9 Chronic obstructive pulmonary disease, unspecified; Z88.1 Allergy status to other antibiotic agents; E87.1 Hypo-osmolality and hyponatremia; E11.65 Type 2 diabetes mellitus with hyperglycemia; I12.9 Hypertensive chronic kidney disease with stage 1 through stage 4 chronic kidney disease, or unspecified chronic kidney disease; Z79.84 Long term (current) use of oral hypoglycemic drugs; N39.0 Urinary tract infection, site not specified; Z72.0 Tobacco use; Z85.42 Personal history of malignant neoplasm of other parts of uterus; M47.26 Other spondylosis with radiculopathy, lumbar region; Z79.01 Long term (current) use of anticoagulants; Z88.2 Allergy status to sulfonamides; I48.91 Unspecified atrial fibrillation; M79.605 Pain in left leg; N18.9 Chronic kidney disease, unspecified; G89.29 Other chronic pain; Z88.7 Allergy status to serum and vaccine; B96.1 Klebsiella pneumoniae [K. pneumoniae] as the cause of diseases classified elsewhere; Z79.899 Other long term (current) drug therapy; M54.41 Lumbago with sciatica, right side; Z84.89 Family history of other specified conditions; Z82.49 Family history of ischemic heart disease and other diseases of the circulatory system
CPT/HCPCS: 36415; 71020; 71046; 74021; 74022; 74176; 80048; 80053; 80162; 81001; 82009; 82150; 82962; 83605; 83690; 84484; 85007; 85025; 85651; 86140; 87040; 87086; 87088; 87186; 93005; 96365; 96375; 99285; G0378; J1956; J2405

== ENCOUNTER → 2020-03-14 10:40 | Outpatient (CLI) | payer MEDICARE, OTHER, SELFPAY ==
--- NOTE | 2020-03-14 10:43 | MR_ITS ---
PROCEDURE: MR LUMBAR SPINE WO CON CLINICAL INDICATION: LUMBAGO W/SCIATICA Low back pain with right leg and groin pain and numbness and tingling COMPARISON: SPLUMBWO MR lumbar spine wo con from 08/24/2018 MR KNEE RT WO CON from 06/29/2019 TECHNIQUE: Standard multiplanar multiecho sequences are performed without contrast. 3-D MIP and myelographic images are also rendered and reviewed FINDINGS: The spinal cord ends at the L1 level. T11-T12: Unremarkable. T12-L1: Minimal bulging disc. L1-L2: Unremarkable. L2-L3: Mild bulging disc with mild facet and ligamentum hypertrophy with mild bilateral lateral recess and foraminal narrowing. L3-L4: Mild bulging disc raise slightly eccentric toward the right with mild facet and ligamentum hypertrophy with right lateral recess and right foraminal narrowing. L4-5: There is mild anterolisthesis of L4 on L5 of 3 mm with bulging disc. There is a small to medium-sized superiorly extruded herniated disc in the right lateral recess region impinging upon the right L4 nerve root and also with some impingement upon the right L5 nerve root. There is severe right-sided lateral recess and foraminal narrowing due to the herniated disc. There is bulging disc at the L4-5 level which is slightly eccentric toward the left. Facet and ligamentum hypertrophy is noted. The bulging disc is abutting the anterior aspect of both L5 nerve roots. There is severe bilateral foraminal narrowing at this level greater on the right. Previously there was a superiorly extruded herniated disc on the left at this level but is no longer apparent. There is borderline narrowing of the canal. L5-S1: Unremarkable. IMPRESSION: 1. L2-L3: Mild bulging disc with mild facet and ligamentum hypertrophy with mild bilateral lateral recess and foraminal narrowing. 2. L3-L4: Mild bulging disc raise slightly eccentric toward the right with mild facet and ligamentum hypertrophy with right lateral recess and right foraminal narrowing. 3. L4-5: There is mild anterolisthesis of L4 on L5 of 3 mm with bulging disc. There is a small to medium-sized superiorly extruded herniated disc in the right lateral recess region impinging upon the right L4 nerve root and also with some impingement upon the right L5 nerve root. There is severe right-sided lateral recess and foraminal narrowing due to the herniated disc. There is bulging disc at the L4-5 level which is slightly eccentric toward the left. Facet and ligamentum hypertrophy is noted. The bulging disc is abutting the anterior aspect of both L5 nerve roots. There is severe bilateral foraminal narrowing at this level greater on the right. Previously there was a superiorly extruded herniated disc on the left at this level but is no longer apparent. There is borderline narrowing of the canal. Dictated by: Blaise Lindsey MD 03/15/2020 07:23 Electronically signed by Blaise Lindsey MD in [place] 03/15/2020 07:23
== END ==
PROVIDERS: PCP Family Medicine; Visit Provider Family Medicine
DX: M54.41 Lumbago with sciatica, right side (principal); M51.36 Other intervertebral disc degeneration, lumbar region; M47.816 Spondylosis without myelopathy or radiculopathy, lumbar region
CPT/HCPCS: 72148; 76376

== ENCOUNTER → 2020-03-17 14:06 | Outpatient (POV) | payer MEDICARE, OTHER, SELFPAY ==
[2020-03-17 14:37] VITALS: BP 114/62; PULSE 75; RESP 18; TEMP 36.8; O2SAT 99; BMI 19.9
--- NOTE | 2020-03-18 08:40 | HMH.PMCON ---
Assessment and Plan (1) Sacroiliitis Current visit: Yes Status: Chronic Category: Medical Code(s): M46.1 - Sacroiliitis, not elsewhere classified - Assessment and plan all Dx Assessment and Plan for all problems:: The only therapy that patient is willing to move forward with his physical therapy I do believe this may be beneficial for her. She states that she will try it a couple times and see if it is beneficial. I will follow-up with her after this reassess her symptoms at that time she has been instructed to call the office if she has any issues prior to her next appointment. Dr. Garcia has reviewed this note and agrees with this plan of care. This note was dictated using voice recognition software and may contain errors or omissions HPI - Data of Consult Consult date: 03/17/20 Requesting Physician: Heavenly Quispe APRN Primary Care Provider: Kb Atkins MD - Consult Narrative Reason for consult: Right SI joint pain History of present illness: Ms. Wellington is a 84 year old female who presents today to discuss her right SI joint pain. She has had pain for quite some years however it is gotten worse in the last few weeks. She rates it a 4 out of 10. All activity increasing it while nothing decreases it. She is unable to take anti-inflammatories due to her current medical issues. She does have diabetes which she does not comply with treatment. She does have tingling in her feet. Patient is uninterested in any injective therapy stating that she is had enough needles in her life. We discussed other options in regards to treating SI joint pain including SI joint belt, stretching, physical therapy. CC: Heavenly Quispe APRN [facility] History I have reviewed the patient's past medical history: Yes Medical History: Reports:: Atrial Fibrillation, Chronic Obstructive Pulmonary Disease (COPD), Cerebrovascular Accident, Diabetes Mellitus Type 2, Heart Murmur, Hypertension Denies:: Cancer, Diabetes Mellitus Type 1, MRSA *Have you ever received a pneumonia vaccine?: Yes *Have you received a flu vaccine this season?: Yes Other Medical History: Reports: Arthritis, Other (Insomnia, Low back pain) Laterality Cases: Left: Arthroscopy Knee, Right: Arthroscopy Shoulder, Other Other Surgeries: Yes: Cancer Surgery (Bladder, KRISTA), Cholecystectomy (Partial SB resection secondary to trocar injury at time of lap amilcar), Hysterectomy-Total Amputation: No - *Social History Smoking Status: Never smoker Tobacco Type: cigarettes # Packs/Day (cigarettes): 1 #Yrs smoked (if former smoker): 60 Alcohol Intake: never Substance Use Type: denies use *Occupational Status:: other Housing: apartment Household Members: other *Travel in the last 8 weeks: None Family Hx:: Cancer (thyroid), Diabetes, Heart Attack Review of Systems - Review of Systems ROS General: no recent weight change, no fever, no sleep disturbances Respiratory: no cough, no shortness of air, no recurring pulmonary infections Cardiovascular/Peripheral Vascular: No chest pain, No palpitations, no edema, no shortness of breath. Gastrointestinal: no new onset incontinence, normal bowel movements reported Genitourinary: no new onset incontinence Musculoskeletal: Back pain, SI joint pain Psychiatric: Anxious Neurological: [denies new onset weakness in extremities], [denies new onset balance issues] Meds Home Medications Medication Instructions Recorded Confirmed Type Digoxin [Digitek] 125 mcg PO DAILY 04/22/18 01/24/20 History Rivaroxaban [Xarelto 20mg Tablet*] 20 mg PO DAILY 04/22/18 01/24/20 History Sitagliptin Phosphate [Januvia 100 mg PO DAILY 04/22/18 01/24/20 History 100mg tablet] dilTIAZem HCl [Diltiazem 240mg 240 mg PO DAILY 08/13/18 01/24/20 History 24Hr ER Cap] Cyclobenzaprine HCl 5 mg PO Q8H PRN 10 Days #30 tab 01/14/20 01/24/20 Rx [Cyclobenzaprine 5mg Tab] Ascorbic Acid [Vitamin C] 1,000 mg PO DAILY 01/24/20 01/24/20 History Cholecalc
== END ==
PROVIDERS: PCP Family Medicine; Visit Provider Clinical Nurse Specialist Family Health
DX: M46.1 Sacroiliitis, not elsewhere classified (principal)
CPT/HCPCS: 99202

== ENCOUNTER 2020-04-10 10:00 | Outpatient (RCR) | payer MEDICARE, SELFPAY ==
--- NOTE | 2020-04-01 13:34 | HMH.PTOPEV ---
PT Outpatient Evaluation Rehab PT Outpatient Evaluation Start: 04/01/20 12:56 Freq: Status: Active Protocol: Document 04/01/20 12:57 SHONNA (Rec: 04/01/20 13:34 SHONNA [id number]) Electronically Signed By Jossue Villalba, PT 04/01/20 12:57 Outpatient Therapy Subjective History Subjective History Pt reports h/o chronic hip/ groin since . Pt reports insidious onset with R hip pain referring into R groin, as well as pain into R thigh, lateral pressley, and R foot. Pt reports s/s have improved over the last ~2-3 weeks. Chief Complaint Pain,Paresthesia,Weakness Symptom Type Ache,Sharp,Dull Symptoms Relieved By Rest/Positioning,OTC Meds, Prescription Meds Symptoms Aggravated By Walking,Lifting Prior Functional Limitations Lifting,Housework,Standing, Walking Current Functional Limitations Lifting,Housework,Standing, Walking Symptom Description Constant but Variable Level of pain today (0-10) 3 Pain scale - at its best (0-10) 2 Pain scale - at its worst (0-10) 5 Lumbopelvic Eval Posture Thoracic Spine Posture Standing Position Flattened Lumbar Spine Posture Standing Position Flattened Assistive device Assistive Devices None / NA Gait Observation General Gait Pattern Observation Antalgic Gait Palapation tenderness right paraspinal tenderness Yes: 1-2/4 buttock tenderness Yes: 3/4 Lumbar/Sacral Palpation Findings Tenderness,Trigger Point, Muscle Guarding Accessory Movement L-spine Vertebrae Accessory Movements Right P/A [place] that Elicit Symptoms S1 right Range of Motion Lumbar Spine Active Flexion Range of 0-40 Motion (degrees) Lumbar Spine Active Extension Range of 0-20 Motion (degrees) Left Lumbar Spine Lateral Flexion Active 0-20 Range of Motion (degrees) Right Lumbar Spine Lateral Flexion 0-20 Active Range of Motion (degrees) Lumbar Spine ROM Limitations Pain Manual Muscle Test Right Knee Extension Strength Grade 4 Good Knee Flexion Strength Grade 4 Good Hip Flexion Strength Grade 3+ Fair+ Hip Abduction Strength Grade 4- Good- Hip Adduction Strength Grade 4- Good- Hip External Rotation Strength Grade 4 Good Hip Internal Rotation Strength Grade 4 Good Extensor Hallucis Longus Strength Grade 5 Normal Ankle Dorsiflexion Strength Grade 5 Normal Gastronemius/Soleus Strength Grade 5 Normal
== END 2020-04-10 10:05 | disposition home or self-care (01) ==
LOC: PT 10:00
PROVIDERS: PCP Family Medicine; Visit Provider Anesthesiology
DX: M46.1 Sacroiliitis, not elsewhere classified (principal)
CPT/HCPCS: 97010; 97014; 97033; 97035; 97110; 97163; G0283

== ENCOUNTER 2020-08-25 13:55 | Emergency (ER) | payer MEDICARE, SELFPAY ==
[2020-08-25 13:57] VITALS: BP 149/61; PULSE 82; RESP 18; TEMP 36.4; O2SAT 97; BMI 19.1
--- NOTE | 2020-08-25 14:10 | CT_ITS ---
PROCEDURE: CT LUMBAR SPINE WO CON CLINICAL HISTORY: pain Pain with pins and needle sensation. COMPARISON: No exams were available for comparison TECHNIQUE: Axial images obtained with sagittal and coronal reformats. All CT scans at the facility use one or more dose reduction, viz: automated exposure control, ma/kV adjustment per patient size (including targeted exams where dose is matched to indication, i.e. head), or iterative reconstruction technique. FINDINGS: There is normal alignment. There is mild degenerative disc disease at T10-T11 T11-T12 and T12-L1. There is mild bulging disc at T12-L1. At L1-L2 there is a left foraminal disc protrusion. There is mild left-sided foraminal narrowing. L2-L3: Minimal bulging disc. L3-L4: Mild bulging disc along with mild facet and ligamentum hypertrophy. L4-5: There is a broad based bulging disc which is eccentric toward the left and left lateral aspect. Facet and ligamentum hypertrophy is present. This is causing moderate to severe left-sided foraminal narrowing suggest nonemergent MRI for better evaluation. There is canal stenosis at this level. L5-S1: Bulging disc. There are right-sided renal calculi measuring up to 5 mm. Calcific density is present in the right renal pelvis and could be due to nonobstructing stone or vascular calcification. There are fibrotic changes in the lung bases IMPRESSION: 1. Multilevel lumbar spondylosis. Please see above for detailed description at each level. There bulging disc at multiple levels most prominent at L4-5 eccentric toward the left and left laterally causing moderate to severe left-sided foraminal narrowing. Suggest nonemergent MRI for more thorough evaluation to determine the degree of neural impingement. There is canal stenosis at this level.. 2. Right nephrolithiasis Dictated by: Blaise Lindsey MD 08/25/2020 15:28 Blaise Lindsey MD in [place] 08/25/2020 15:28
--- NOTE | 2020-08-25 14:10 | CA_ITS ---
APPROVED REPORT Bilateral Lower Extremity Venous Study for DVT. Data Modeling Specialist: CT Indications Lower Extremity Pain: pain Past History Xarelto Vein Imaging CFV (L): compressive, spontaneous, phasic, augmentation SFJ (L): compressive, spontaneous, phasic, augmentation FEM (L): compressive, spontaneous, phasic, augmentation POP (L): compressive, spontaneous, phasic, augmentation DFV (L): compressive, spontaneous, phasic, augmentation PTV (L): compressive, spontaneous, phasic, augmentation GSV (L): compressive, spontaneous, phasic, augmentation SSV (L): compressive, spontaneous, phasic, augmentation Peroneals (L):compressive, spontaneous, phasic, augmentation GAS (L): compressive, spontaneous, phasic, augmentation Findings LLE negative for DVT/SVT. Vessels compressible. Conclusion LLE negative for DVT/SVT. Vessels compressible. Electronically signed by : Blaise Lindsey MD 08/26/2020 17:33:44
--- NOTE | 2020-08-25 14:10 | HMH.EDGENADL ---
ED Disposition Clinical Impression: Spinal stenosis of lumbar region with radiculopathy Disposition: Home, Self-Care Condition on Discharge: Good Additional Instructions: You were seen on an emergency basis. It is very important that you follow up with your primary care provider and/or specialist as we discussed within 2 days. All labs and imaging were obtained and interpreted here to rule out life threatening emergencies, but your final results should be reviewed by your primary doctor at your follow up appointment. Please return to the emergency department if any of your symptoms worsen, or if they do not improve as we discussed. Prescriptions: Lidocaine [Lidoderm 5% transdermal patch] 1 each TP Q24H PRN #20 adh..patch PRN Reason: pain Transmission Status: Pending to [facility] #[id number] Referrals: Kb Atkins MD [Primary Care Provider] - - Critical Care Critical Care Time: No Attestation: On 08/25/20, the high probability of a clinically significant, sudden or life threatening deterioration of the following system(s) required my full and direct attention, intervention and personal management. The time I documented below is in addition to time spent performing reported procedures but includes the following listed in this critical care notation. Medical Decision Making - Medical Records Medical records reviewed: Yes: I reviewed the patient's medical records. - Oscar Inquiry Pt receiving controlled substance: No Vital Signs: 08/25/20 13:57 08/25/20 14:29 Temperature 97.6 F Temperature Source Temporal Artery Scan Pulse Rate [Right] 82 72 Respiratory Rate 18 Blood Pressure [Right Arm] 149/61 H 143/53 H Blood Pressure Mean [Right Arm] 90 83 Blood Pressure Source [Right Arm] Automatic Cuff Blood Pressure Position [Right Arm] Sitting 02 Sat by Pulse Oximetry 97 97 Orders (Tests/Meds): ED MEDICATIONS Discontinued Medications Generic Name Dose Route Start Last Admin Trade Name Freq PRN Reason Stop Dose Admin Acetaminophen 1,000 mg 08/25/20 14:13 08/25/20 14:17 Acetaminophen 500mg Tab PO 08/25/20 14:14 1,000 mg ONCE ONE Administration Medical Decision Narrative: 85-year-old female presenting with atraumatic left lower extremity burning pain. Nontoxic, afebrile, hemodynamically stable, nonfocal, neuro intact. No cauda equina red flags including saddle anesthesia, loss of bowel or bladder or urinary retention. 5 out of 5 strength globally and full weightbearing. CT lumbar showed spinal stenosis with impingement on the left likely causing her symptoms. Ultrasound of the left lower extremity was negative for DVT. I will prescribe Lidoderm patches for her and have her follow-up with PCP for further management. General Adult HPI - General Chief complaint: Extremity Problem,Nontraumatic Stated complaint: left leg blood viens busted Time Seen by Provider: 08/25/20 14:10 Mode of Arrival: Ambulatory Limitations: No Limitations Description of Symptoms (Recalled from ER Triage Doc. by RN): C/O pain in her left thigh for 2 days that feels like pins and needles. - History of Present Illness HPI narrative: This is an 85-year-old female who presents with burning pain down the back of her left lower extremity that started while she was at rest 3 days ago. She has not taken any medication for this. Nothing makes the pain worse. She thought she busted a varicose vein. No fever, chills, nausea, vomiting, hip pain, trauma, bleeding or bruising, numbness or tingling, focal weakness. No saddle anesthesia, loss of bowel or bladder. No back pain. - Related Data Home Medications Medication Instructions Recorded Confirmed Digoxin [Digitek] 125 mcg PO DAILY 04/22/18 01/24/20 Rivaroxaban [Xarelto 20mg Tablet*] 20 mg PO DAILY 04/22/18 01/24/20 Sitagliptin Phosphate [Januvia 100 mg PO DAILY 04/22/18 01/24/20 100mg tablet] dilTIAZem HCl [Diltiazem 240mg 240 mg PO DAILY 1
[2020-08-25 14:29] VITALS: BP 143/53; PULSE 72; O2SAT 97
--- NOTE | 2020-08-25 14:42 | PC.NURSE ---
Pt with echo lab
[2020-08-25 15:49] VITALS: BP 143/53; PULSE 72; RESP 18; TEMP 36.4; O2SAT 97
== END 2020-08-25 15:52 | disposition home or self-care (01) ==
PROVIDERS: Emergency Provider Physician Assistant; PCP Family Medicine
DX: M48.061 Spinal stenosis, lumbar region without neurogenic claudication (principal); I48.20 Chronic atrial fibrillation, unspecified; E11.9 Type 2 diabetes mellitus without complications; I10 Essential (primary) hypertension; J44.9 Chronic obstructive pulmonary disease, unspecified; Z90.49 Acquired absence of other specified parts of digestive tract; Z88.0 Allergy status to penicillin; Z88.7 Allergy status to serum and vaccine; M79.652 Pain in left thigh
CPT/HCPCS: 72131; 93971; 99282

== ENCOUNTER → 2021-01-10 08:04 | Outpatient (CLI) | payer MEDICARE, SELFPAY ==
[2021-01-10 09:31] LABS: Coronavirus 19 IgG Antibody Negative (Negative); Coronavirus 19 IgM Antibody Negative (Negative)
== END ==
PROVIDERS: Visit Provider Urology
DX: C67.9 Malignant neoplasm of bladder, unspecified (principal); Z01.818 Encounter for other preprocedural examination; Z20.822 Contact with and (suspected) exposure to COVID-19
CPT/HCPCS: 36415; 86328

== ENCOUNTER 2021-01-12 08:39 | Day surgery (SDC) | payer MEDICARE, SELFPAY ==
[2021-01-08 12:58] VITALS: BMI 21.5
[2021-01-12 09:00] VITALS: BP 144/68; PULSE 78; RESP 18; TEMP 36.9; O2SAT 97
[2021-01-12 09:16] LABS: POC Glucose,Bedside 167 (70-110)
[2021-01-12 09:53] VITALS: BP 129/60; PULSE 73; RESP 20; TEMP 36.6; O2SAT 96
--- NOTE | 2021-01-12 11:07 | HMH.OPNOTE ---
Date of procedure: 01/12/21 Pre-op Diagnosis:: History of bladder cancer Post-op Diagnosis:: History of bladder cancer Procedure performed:: Surveillance cystoscopy Surgeon:: Ross Acuna MD Anesthesia: local Estimated blood loss (mL): 0 Clinical Note:: Patient is an 85-year-old white female with a history of bladder cancer. She returns for her yearly surveillance cystoscopy. She denies any voiding difficulties or gross hematuria. Operative findings:: No evidence of bladder tumor recurrence. Operative note:: Patient taken to the cystoscopy suite after informed consent was obtained. On the stretcher she was placed into the frog-leg position. She was prepped and draped in the standard surgical fashion and 2% lidocaine placed into the urethra. After 5 minutes the flexible cystoscope introduced into the urethral meatus. There was a little stenosis at the distal urethra but the scope passed without difficulty. The bladder was examined in a systematic fashion. There is no evidence of recurrent bladder tumors, stones, diverticula or trabeculation. The ureteral orifices in their normal anatomic position. The bladder neck and urethra were normal. There was normal ureteral orifices and clear efflux of urine. Scope removed patient tolerated the procedure well there are no complications. We will see her back in 1 year for surveillance. Condition: stable Disposition: same day Specimens:: None Complications:: None
== END 2021-01-12 10:05 | disposition home or self-care (01) ==
LOC: OUTP 08:41
PROVIDERS: PCP Family Medicine; Visit Provider Urology
PROC: (CPT 52000; principal; 2021-01-12 09:30)
DX: Z08 Encounter for follow-up examination after completed treatment for malignant neoplasm (principal); Z85.51 Personal history of malignant neoplasm of bladder; Z98.890 Other specified postprocedural states; I48.91 Unspecified atrial fibrillation; J44.9 Chronic obstructive pulmonary disease, unspecified; E11.9 Type 2 diabetes mellitus without complications; I10 Essential (primary) hypertension; Z86.73 Personal history of transient ischemic attack (TIA), and cerebral infarction without residual deficits; Z87.39 Personal history of other diseases of the musculoskeletal system and connective tissue; Z88.1 Allergy status to other antibiotic agents; Z88.7 Allergy status to serum and vaccine; Z88.8 Allergy status to other drugs, medicaments and biological substances
CPT/HCPCS: 52000; 82962

== ENCOUNTER → 2021-02-13 08:28 | Outpatient (CLI) | payer MEDICARE, SELFPAY ==
--- NOTE | 2021-02-13 08:32 | XR_ITS ---
PROCEDURE: XR DEXA AXIAL SKELETON CLINICAL HISTORY: POST MENOPAUSAL COMPARISON: No exams were available for comparison FINDINGS: The right hip BMD is 0.504 with a T-score of -3.1. The left hip BMD is 0.450 with a T-score of -3.6. The lumbar spine BMD is 0.796 with a T-score of -2.3. IMPRESSION: This patient is considered osteoporotic according to the World Health Organization criteria. Fracture risk is high. Treatment is advised. Based on these results a follow-up exam is recommended in 1 year. Dictated by: Blaise Lindsey MD 02/14/2021 13:34 Blaise Lindsey MD in [place] 02/14/2021 13:34
== END ==
PROVIDERS: PCP Family Medicine; Visit Provider Family Medicine
DX: Z78.0 Asymptomatic menopausal state (principal); Z13.820 Encounter for screening for osteoporosis
CPT/HCPCS: 77080

== ENCOUNTER → 2021-07-01 12:27 | Outpatient (CLI) | payer MEDICARE, SELFPAY ==
--- NOTE | 2021-07-01 12:33 | XR_ITS ---
PROCEDURE: XR CHEST PORTABLE CLINICAL HISTORY: COVID OUTPATIENT Chest pain COMPARISON: CR CXR1 CHEST-PORTABLE from 12/08/2016 CR CXR2V XR chest 2V from 04/22/2018 CR XR CHEST 2V from 01/23/2020 FINDINGS: The cardiomediastinal silhouette and pulmonary vascularity are within normal limits. No lobar consolidation or collapse. Faint irregular opacity overlies the anterior aspect of the left 4th rib in the mid chest area measuring approximately 7 mm possibly due to summation artifact. Follow-up PA and lateral chest may provide further evaluation. No acute bony abnormalities. IMPRESSION: No acute finding. Possible left midlung nodule versus summation density from the overlying ribs Dictated by: Blaise Lindsey MD 07/01/2021 13:16 Blaise Lindsey MD in [place] 07/01/2021 13:16
[2021-07-01 13:30] LABS: Coronavirus 19, PCR Not Detected (NotDetected); Influenza A, PCR Not Detected (NotDetected); Influenza B, PCR Not Detected (NotDetected)
[2021-07-01 13:33] LABS: Basophils # 0.1 K/mm3 (0-0.2); Basophils % 1.4 % (0.1-2.0); Eosinophils # 0.1 K/mm3 (0.0-0.4); Hemoglobin 13.4 g/dL (12.2-16.2); Lymphocytes # 2.9 K/mm3 (0.7-4.5); Lymphocytes % 39.7 % (10-50); Mean Corpuscular HGB Conc 31.9 g/dL (31.8-35.4); Mean Corpuscular Hemoglobin 30.2 pg (27.0-31.2); Mean Corpuscular Volume 94.7 fl (81-99); Mean Platelet Volume 8.2 fl (7.4-10.4); Monocytes # 0.5 K/mm3 (0.1-1.0); Monocytes % 7.5 % (1.7-9.3); Neutrophils # 3.6 K/mm3 (1.8-7.8); Neutrophils % 49.5 % (37.0-80.0); Platelet Count 354 K/mm3 (142-424); Red Blood Count 4.43 M/mm3 (4.20-5.40); Red Cell Distribution Width 14.2 % (11.5-17.5); White Blood Count 7.2 K/mm3 (4.8-10.8)
== END ==
PROVIDERS: PCP Family Medicine; Visit Provider Family Medicine
DX: Z20.822 Contact with and (suspected) exposure to COVID-19 (principal)
CPT/HCPCS: 36415; 71045; 85025; U0003

== ENCOUNTER 2021-09-08 14:42 | Emergency (ER) | payer MEDICARE, SELFPAY ==
--- NOTE | 2021-09-08 14:36 | ECG_ITS ---
APPROVED REPORT Exam: Resting ECG HR:70 bpm ECG Measurements Heart Rate 70 AXES [place] 188 P 59 QRSd 76 QRS 25 QT 404 T 61 QTc 436 Conclusion Normal sinus rhythm Old anteroseptal changes Abnormal ECG Electronically signed by : Joby Newton MD 09/11/2021 13:55:51
[2021-09-08 14:43] VITALS: BP 135/67; PULSE 74; RESP 18; TEMP 36.6; O2SAT 95; BMI 21.4
[2021-09-08 14:45] VITALS: BMI 21.4
--- NOTE | 2021-09-08 14:46 | XR_ITS ---
PROCEDURE: XR CHEST PORTABLE CLINICAL HISTORY: chest pain COMPARISON: CR CXR2V XR chest 2V from 04/22/2018 CR XR CHEST 2V from 01/23/2020 CR XR CHEST PORTABLE from 07/01/2021 FINDINGS: The cardiomediastinal silhouette and pulmonary vascularity are within normal limits. The lungs are clear without infiltrates, suspicious nodules, or pleural effusions. No acute bony abnormalities. IMPRESSION: No acute findings. Dictated by: Blaise Lindsey MD 09/08/2021 15:16 Blaise Lindsey MD in [place] 09/08/2021 15:16
[2021-09-08 14:54] LABS: Basophils # 0.1 K/mm3 (0-0.2); Basophils % 0.9 % (0.1-2.0); Eosinophils # 0.1 K/mm3 (0.0-0.4); Eosinophils % 1.4 % (0.1-12.0); Hematocrit 41.7 % (37.0-47.0); Hemoglobin 13.5 g/dL (12.2-16.2); Lymphocytes # 2.9 K/mm3 (0.7-4.5); Lymphocytes % 31.4 % (10-50); Mean Corpuscular HGB Conc 32.5 g/dL (31.8-35.4); Mean Corpuscular Hemoglobin 30.2 pg (27.0-31.2); Mean Platelet Volume 8.4 fl (7.4-10.4); Monocytes # 0.6 K/mm3 (0.1-1.0); Monocytes % 6.4 % (1.7-9.3); Neutrophils # 5.5 K/mm3 (1.8-7.8); Neutrophils % 59.8 % (37.0-80.0); Platelet Count 322 K/mm3 (142-424); Red Blood Count 4.48 M/mm3 (4.20-5.40); Red Cell Distribution Width 14.3 % (11.5-17.5); White Blood Count 9.1 K/mm3 (4.8-10.8)
--- NOTE | 2021-09-08 15:00 | HMH.EDGENADL ---
ED Disposition Clinical Impression: Chest pain Qualifiers: Chest pain type: precordial pain Qualified Code(s): R07.2 - Precordial pain Disposition: Left Against Medical Advice Condition on Discharge: Good - Critical Care Critical Care Time: No Attestation: On 09/08/21, the high probability of a clinically significant, sudden or life threatening deterioration of the following system(s) required my full and direct attention, intervention and personal management. The time I documented below is in addition to time spent performing reported procedures but includes the following listed in this critical care notation. Medical Decision Making - Oscar Inquiry Pt receiving controlled substance: No Vital Signs: 09/08/21 14:43 09/08/21 15:30 09/08/21 16:00 Temperature 97.9 F Temperature Source Oral Pulse Rate 68 68 Pulse Rate [Right Radial] 74 Respiratory Rate 18 14 14 Blood Pressure 129/61 140/65 Blood Pressure [Right Arm] 135/67 Blood Pressure Mean 85 90 Blood Pressure Mean [Right Arm] 89 Blood Pressure Source [Right Arm] Automatic Cuff Blood Pressure Position [Right Arm] Sitting 02 Sat by Pulse Oximetry 95 96 94 L Oxygen Delivery Method Room Air - Lab Data Lab Results 09/08/21 14:40: WBC 9.1, RBC 4.48, Hgb 13.5, Hct 41.7, MCV 93.0, MCH 30.2, MCHC 32.5, RDW 14.3, Plt Count 322, MPV 8.4, Neut % (Auto) 59.8, Lymph % (Auto) 31.4, [place] % (Auto) 6.4, Eos % (Auto) 1.4, Baso % (Auto) 0.9, Neut # (Auto) 5.5, Lymph # (Auto) 2.9, [place] # (Auto) 0.6, Eos # (Auto) 0.1, Baso # (Auto) 0.1 09/08/21 14:40: Sodium 139, Potassium 3.3 L, Chloride 105, Carbon Dioxide 21 L, Anion Gap 16.3 H, BUN 19 H, Creatinine 0.60, Estimated Creat Clear 35, Estimated GFR 95, Est GFR ( Amer) 115, Glucose 149 H, Calcium 10.0, Troponin I < 0.01 Result diagrams: 09/08/21 14:40 09/08/21 14:40 Orders (Tests/Meds): ED MEDICATIONS Generic Name Dose Route Start Last Admin Trade Name Freq PRN Reason Stop Dose Admin Acetaminophen 650 mg 09/08/21 16:19 Acetaminophen 325mg Tab PO 10/08/21 16:18 Q4HP PRN Fever or Mild Pain Insulin Human Lispro 0 unit 09/08/21 16:30 Humalog 100 Units/Ml 3ml Vial (Ssi) SQ 10/08/21 16:29 ACHS SHANIA Protocol Morphine Sulfate 4 mg 09/08/21 16:19 Morphine 4mg/Ml Syringe IV 10/08/21 16:18 Q4HP PRN Severe Pain Ondansetron HCl 4 mg 09/08/21 16:19 Ondansetron 4mg/2ml Vial IV 10/08/21 16:18 Q8HP PRN Nausea Discontinued Medications Generic Name Dose Route Start Last Admin Trade Name Freq PRN Reason Stop Dose Admin Nitroglycerin 1 gm 09/08/21 14:46 09/08/21 14:48 Nitroglycerin 1 Gm Ointment TD 09/08/21 14:47 1 gm ONCE ONE Administration ORDERS Category Date Time Status Troponin I Q3H Lab 09/08/21 18:00 Ordered Troponin I Q3H Lab 09/08/21 21:00 Ordered - Radiology Data #1 Image(s): Chest Image Reviewed: Yes I have reviewed radiologist's interpretation PROCEDURE: XR CHEST PORTABLE CLINICAL HISTORY: chest pain COMPARISON: CR CXR2V XR chest 2V from 04/22/2018 CR XR CHEST 2V from 01/23/2020 CR XR CHEST PORTABLE from 07/01/2021 FINDINGS: The cardiomediastinal silhouette and pulmonary vascularity are within normal limits. The lungs are clear without infiltrates, suspicious nodules, or pleural effusions. No acute bony abnormalities. IMPRESSION: No acute findings. Dictated by: Blaise Lindsey MD 09/08/2021 15:16 Blaise Lindsey MD in [place] 09/08/2021 15:16 - ECG Data Tracing #1 EKG interpreted by Feliberto Villar MD: Rhythm: sinus Rate: 70 [place]: normal Ectopy: none Conduction: normal ST Segment Changes: none T Wave Changes: none Q Waves: Septal No evidence of acute ischemia or injury - Physician Consults Physician Consulted: Martha Time: 15:54 Reason -: Admission Comment/Response: Agrees to admit the patient to the hospital. We discussed the patient's
[2021-09-08 15:07] LABS: Anion Gap 16.3 mEq/L (5-15); Blood Urea Nitrogen 19 mg/dl (7-17); Carbon Dioxide 21 mmol/L (22.0-30.0); Chloride 105 mmol/L (98-107); Creatinine Clearance Estimated 35 mL/min (50-200); Estimated Glomerular Filt Rate 95 ml/min (>60); GFR (African American) 115 ML/MIN (>60); Glucose 149 mg/dl (74-100); Potassium 3.3 mmoL/L (3.5-5.1); Sodium 139 mmol/L (136-145)
[2021-09-08 15:21] LABS: Troponin I < 0.01 ng/ml (0.00-0.034)
[2021-09-08 15:30] VITALS: BP 129/61; PULSE 68; RESP 14; O2SAT 96
--- NOTE | 2021-09-08 15:48 | PC.NURSE ---
LIBRA DAVE spoke with Dr. Thomas who is covering for Dr. Atkins
--- NOTE | 2021-09-08 15:52 | PC.NURSE ---
notified house registry rn of admission
[2021-09-08 16:00] VITALS: BP 140/65; PULSE 68; RESP 14; O2SAT 94
[2021-09-08 16:00] LABS: Coronavirus 19, PCR Not Detected (NotDetected); Influenza A, PCR Not Detected (NotDetected); Influenza B, PCR Not Detected (NotDetected)
--- NOTE | 2021-09-08 16:22 | HMH.PHAVTE ---
[facility] Pharmacy VTE Monitoring - Patient Demographics Admission date: 09/08/21 Report Date: 09/08/21 Time: 16:22 Allergies/Adverse Reactions: Patient Allergies tetanus toxoid, adsorbed [TETANUS TOXOID, ADSORBED] Allergy (Unknown, Verified 01/12/21 08:56) Burning cephalexin [From Keflex] Allergy (Verified 01/12/21 08:56) Burning sensation clarithromycin [From Biaxin] Allergy (Verified 01/12/21 08:56) Hallucinating metformin Allergy (Verified 01/12/21 08:56) nausea and vomiting sulfamethoxazole [From Bactrim] Allergy (Verified 01/12/21 08:56) Hallucinating trimethoprim [From Bactrim] Allergy (Verified 01/12/21 08:56) Hallucinating Height: 1.57 m Weight: 53.07 kg Patient Problems: Current Active Problems Chest pain (Acute) - VTE Risk Labs: VTE Related Lab Results Hgb 13.5 g/dL (12.2-16.2) 09/08/21 14:40 Hct 41.7 % (37.0-47.0) 09/08/21 14:40 Plt Count 322 K/mm3 (142-424) 09/08/21 14:40 BUN 19 mg/dl (7-17) H 09/08/21 14:40 Creatinine 0.60 mg/dl (0.52-1.04) 09/08/21 14:40 Estimated Creat Clear 35 mL/min (50-200) 09/08/21 14:40 - Prophylaxis VTE Prophylaxis Ordered?: Yes Types of VTE Prophylaxis: TEDS Knee High Location of Applied Device: Bilateral Lower Extremeties
--- NOTE | 2021-09-08 17:57 | PC.NURSE ---
pt signed out ama
[2021-09-08 18:10] VITALS: BP 123/78; PULSE 78; RESP 16; TEMP 36.6; O2SAT 98
== END 2021-09-08 18:30 | disposition left against medical advice (07) ==
LOC: ER 14:55 → 2ND 15:55
PROVIDERS: Emergency Provider Emergency Medicine; PCP Family Medicine
DX: R07.2 Precordial pain (principal); I48.91 Unspecified atrial fibrillation; Z20.822 Contact with and (suspected) exposure to COVID-19; J44.9 Chronic obstructive pulmonary disease, unspecified; E11.9 Type 2 diabetes mellitus without complications; I10 Essential (primary) hypertension; Z88.2 Allergy status to sulfonamides; Z88.1 Allergy status to other antibiotic agents; Z88.7 Allergy status to serum and vaccine; Z79.899 Other long term (current) drug therapy
CPT/HCPCS: 71045; 80048; 84484; 85025; 93005; 99283; C9803; U0003; U0005

== ENCOUNTER → 2021-09-17 06:40 | Outpatient (CLI) | payer MEDICARE, SELFPAY ==
--- NOTE | 2021-09-17 06:41 | CA_ITS ---
APPROVED REPORT EXAM: Comprehensive 2D, Doppler, and color-flow Echocardiogram [employer] House Manager: Lucia King RDCS Ht: 5 ft 2 in Wt: 118lbs BSA: 1.53 BP: 140/54 mmHg Indications: SOA,CP,COPD,ABN EKG,AF 2D Dimensions LVOT 1.69 cm (M/F) 1.5-2.5 LA Volume 54.00 mL LA Volume Index 35.52 mL/m2 (M/F) 16-34 M-Mode Dimensions RVDd 1.72 cm (0.9-2.6) LA Diam 4.02 cm (1.9-4.0) LVDd 4.34 cm (3.5-5.7) Ao Diam 2.36 cm (2.0-3.7) LVDs 3.05 cm (3.5-5.7) IVSd 0.90 cm (0.6-1.1) PWd 0.81 cm (0.6-1.1) EF (Teich) 57.10% FS 29.70% EDV (Teich) 84.90 mL ESV (Teich) 36.40 mL LV Diastology E Decel Time 180.00 (160-240 msec) E/A Ratio 1.1 MED E' 5.80 (< 7 cm/sec) E'/MED E' Ratio 16.14 (>14) LAT E' 5.80 (<10 cm/sec) E/LAT E' Ratio 16.14 (>14) Mitral Valve MV E Max Isiah. 94.00 (40-130 cm/s) MV A Velocity 88.00 (40-130 cm/s) E/A Ratio 1.06 MV Decel. Time 180.00 (160-240 ms) MV PHT 53.00 ms Left Ventricle Left atrium is moderately enlarged, left ventricle is normal size, mild concentric left ventricular hypertrophy, visually estimated ejection fraction 55% with no regional wall motion abnormality, grade 2 diastolic dysfunction seen with tissue Doppler evidence of raise left atrial pressure. Right Ventricle Right atrium and right ventricle are mildly enlarged with normal contractility. Aortic Valve Aortic valve is thickened and calcified without Doppler evidence of aortic stenosis, there is no significant aortic insufficiency. Mitral Valve Mitral valve leaflets are minimally thickened, there is moderate mitral regurgitation. Tricuspid Valve Tricuspid valve grossly normal, there is mild tricuspid regurgitation, tricuspid regurgitation jet velocity is inadequate for calculation of the right ventricular systolic pressure. Pulmonic Valve Pulmonic valve is poorly visualized. Great Vessels Aortic root is normal size. Inferior vena cava is mildly dilated without significant inspiratory collapse. Pericardium No significant pericardial effusion noted. Conclusion 1. Biatrial enlargement, normal left ventricular size, mild concentric left ventricular hypertrophy, visually estimated ejection fraction 55% with no regional wall motion abnormality, grade 2 diastolic dysfunction seen with tissue Doppler evidence of raise left atrial pressure. 2. Moderate mitral and mild tricuspid regurgitation. 3. Mildly enlarged right ventricle with normal contractility. 4. Inferior vena cava is mildly dilated without significant inspiratory collapse. 5. No significant pericardial effusion noted. Electronically signed by : Rudy Balderas MD 09/17/2021 10:29:15
--- NOTE | 2021-09-17 06:41 | NM_ITS ---
APPROVED REPORT Exam: Nuclear Stress Test Indication: chest pain and short of breath Patient Location: Outpatient Stress Tech: Denisse GANNON Tech:Rupa Coates MILAGROS RT(R)(N) Ht: 5 ft 0 in Wt: 120 lbs Bra Size: 32 a HR: 61 bpm BP: 110/39 mmHg BSA: 1.50 m2 History: chest pain and short of breath Procedure: Patient received a 0.4 mg of intravenous Lexiscan, resting heart rate 61 bpm, resting blood pressure 110/39 mmHg, with Lexiscan maximum heart rate achived was 76 bpm which is Less than 85 % of the maximum predicted heart rate and blood pressure was 135/50 mmHg. With Lexiscan, patient denied any complaint of chest pain. Electrocardiogram Resting electrocardiogram showed sinus rhythm, with Lexiscan there is less than 1.[address] segment depression noted from the baseline EKG. The EKG portion of the Lexiscan Myoview is nondiagnostic. Cardiac Stress and Resting SPECT Images: Cardiac Stress and Resting SPECT images were obtained using technetium 99m Myoview 29.9 mCi stress and 10.47 mCi at rest. Gated SPECT for analysis of segmental wall motion and calculation of the ejection fraction also done. Cardiac stress and resting SPECT images show uniform myocardial activity without segmental perfusion abnormality, compared right ejection fraction is over 65% with no regional wall motion abnormality, right ventricle is normal size and contractility. Conclusion: 1. The EKG portion of the Lexiscan Myoview is nondiagnostic. 2. No scintigraphic evidence of reversible ischemia seen, compared right ejection fraction is over 65% with no regional wall motion abnormality, right ventricle is normal size and contractility. 3. Normal Lexiscan Myoview study. Electronically signed by : Rudy Balderas MD 09/17/2021 14:52:36
--- NOTE | 2021-09-17 06:41 | CA_ITS ---
APPROVED REPORT Exam: Pharmacologic Technologist: Denisse Brantley, Ht: 5 ft 2 in Wt: 122 lbs BSA: 1.55 m2 HR: 61 bpm BP: 110/39 mmHg Rhythm: sinus alirio, 1st degree AVB, cannot ruleout old septal [place], ST abns laterally Medical History Medical History: Diabetic ??? Insulin, Smoking Medications: Gabapentin,,,,, Vit D3,,,,, Vit b 12,,,,, Vit C,,,,, DilTiazem,,,,, Sitagliptin,,,,, RIvaROXABAN,,,,, GlimepERIDE,,,,, Cardiac Risk Factors: Diabetes (insulin), FHX of CAD, Smoking Stress Test Details Test: LEXISCAN HR Resting HR: 61 bpm Max Heart Rate (APMHR): 136.088350 bpm Max HR Achieved: 77 bpm Target HR (85% APMHR): 115.216181 bpm % of APMHR: 56.62 Recovery HR: 74 bpm BP Resting BP: 110/39 mmHg Max BP: 135/50 mmHg Recovery BP: 119.0/50.0 mmHg BP response to stress: Normal blood pressure response to stress. ECG Resting ECG: sinus alirio, 1st degree AVB, cannout ruleout old septal [place], ST abns laterally. Clinical Exercise duration: 04:02 min Highest Stage Achieved: Exercise capacity: 1.0 METs Stress ECG Conclusion During lexiscan pt experinced lightheadedness. No CP noted. No arrhythmias noted. Exaggeration of basline ST abns in lateral leads. Unremarkable lexiscan stress. Myoview images reported separately. Electronically signed by : Rudy Balderas MD 09/17/2021 10:38:16
== END ==
PROVIDERS: PCP Family Medicine; Visit Provider Internal Medicine Cardiovascular Disease
DX: E11.9 Type 2 diabetes mellitus without complications (principal); I48.0 Paroxysmal atrial fibrillation; R06.00 Dyspnea, unspecified; R07.89 Other chest pain; R94.31 Abnormal electrocardiogram [ECG] [EKG]; Z82.49 Family history of ischemic heart disease and other diseases of the circulatory system; Z79.84 Long term (current) use of oral hypoglycemic drugs
CPT/HCPCS: 78452; 93017; 93306; A9502; J2785

== ENCOUNTER 2021-12-21 10:30 | Emergency (ER) | payer MEDICARE, SELFPAY ==
[2021-12-21 10:46] VITALS: BP 178/70; PULSE 101; RESP 20; TEMP 36.6; O2SAT 95; BMI 22.1
--- NOTE | 2021-12-21 10:49 | XR_ITS ---
FINAL REPORT CLINICAL HISTORY: Lt sided neck pain that radiates into the Lt shoulder for 2 weeks, NKI FINDINGS: CERVICAL SPINE SERIES Three views demonstrate no acute fracture. There is moderate disc space narrowing at C5-6 and C6-7 with grade 1 spondylolisthesis of C5 on C6, likely degenerative. The vertebral body demonstrates normal height. Patient is edentulous. IMPRESSION: Moderately advanced changes of degenerative disc disease at C5-6 with grade 1 anterolisthesis. No acute bony abnormality. Reviewed, Interpreted and Dictated by Yaron Lyon MD Transcribed by Elissa Coronado Authenticated by Yaron Lyon MD on 12/21/2021 12:03:[address] [facility]
--- NOTE | 2021-12-21 10:49 | XR_ITS ---
FINAL REPORT CLINICAL HISTORY: Lt shoulder pain for 2 weeks, NKI FINDINGS: LEFT SHOULDER 3 views of the left shoulder were obtained. There is no acute fracture or dislocation. Visualized joint spaces are normally aligned. Soft tissues are unremarkable. IMPRESSION: No acute bony abnormality. Reviewed, Interpreted and Dictated by Yaron Lyon MD Transcribed by Elissa Coronado Authenticated by Yaron Lyon MD on 12/21/2021 12:03:46 PM [facility]
--- NOTE | 2021-12-21 10:53 | HMH.EDUTC ---
[facility] [place] Disposition Clinical Impression: Neck pain, Degenerative disc disease, cervical, Torticollis Trapezius muscle strain Qualifiers: Encounter type: initial encounter Laterality: left Qualified Code(s): S46.812A - Strain of other muscles, fascia and tendons at shoulder and upper arm level, left arm, initial encounter Left shoulder pain Qualifiers: Chronicity: unspecified Qualified Code(s): M25.512 - Pain in left shoulder Disposition: Home, Self-Care Condition on Discharge: Good Instructions: Degenerative Disc Disease, DI for Torticollis, DI for Neck Pain Additional Instructions: Go home and rest. It would be best if you rested for the next few days. No heavy lifting. No twisting. Be careful in your process of moving and don't injure yourself further. Take the oral medications as directed. The muscle relaxer (cyclobenzaprine--Flexeril) will make you drowsy, so don't drive or operate heavy machinery after taking it. Be very careful and don't fall. Don't start the oral steroids (prednisone) until tomorrow, since you had the shot in here today. Follow up with your regular doctor. GO TO THE ER FOR ANY WORSENING SYMPTOMS OR CONCERN, ESPECIALLY BOWEL OR BLADDER ISSUES, SADDLE AREA NUMBNESS, FEVER, ETC Watch your blood sugars while you are on the steroids. Steroids will cause you to have higher blood sugars. Follow your diabetic diet closely. Prescriptions: Cyclobenzaprine HCl [Cyclobenzaprine 5mg Tab*] 5 mg PO BIDP PRN #20 tab PRN Reason: Muscle Spasm Transmission Status: Re[facility] predniSONE [Prednisone 20mg Tab] 20 mg PO BID 4 Days #8 tab Transmission Status: Received by [facility] Referrals: Kb Atkins MD [Primary Care Provider] - Time of Disposition: 12:44 Medical Decision Making - Medical Records Medical records reviewed: No: I reviewed the patient's medical records. - Oscar Inquiry Pt receiving controlled substance: No Vital Signs: 12/21/21 10:46 12/21/21 12:47 Temperature 97.9 F 97.9 F Temperature Source Oral Oral Pulse Rate 101 H Pulse Rate [Right Brachial] 101 H Respiratory Rate 20 20 Blood Pressure 178/70 H Blood Pressure [Left Arm] 178/70 H Blood Pressure Mean [Left Arm] 106 Blood Pressure Source [Left Arm] Automatic Cuff Blood Pressure Position [Left Arm] Sitting 02 Sat by Pulse Oximetry 95 Oxygen Delivery Method Room Air Orders (Tests/Meds): ED MEDICATIONS Discontinued Medications Generic Name Dose Route Start Last Admin Trade Name Cecilia PRN Reason Stop Dose Admin Ketorolac Tromethamine 30 mg 12/21/21 12:24 12/21/21 12:38 Ketorolac 60mg/2ml Vial IM 12/21/21 12:25 30 mg ONCE ONE Administration Methylprednisolone Sodium Succinate 62.5 mg 12/21/21 12:24 12/21/21 12:38 Methylprednisolone Sod Succ 125mg Vial IM 12/21/21 12:25 62.5 mg ONCE ONE Administration - Radiology Data #1 Image(s): C-Spine Image Reviewed: Yes I reviewed the patient's radiology image, Yes I have reviewed radiologist's interpretation Preliminary Findings: No Fracture Seen FINAL REPORT CLINICAL HISTORY: Lt sided neck pain that radiates into the Lt shoulder for 2 weeks, NKI FINDINGS: CERVICAL SPINE SERIES Three views demonstrate no acute fracture. There is moderate disc space narrowing at C5-6 and C6-7 with grade 1 spondylolisthesis of C5 on C6, likely degenerative. The vertebral body demonstrates normal height. Patient is edentulous. IMPRESSION: Moderately advanced changes of degenerative disc disease at C5-6 with grade 1 anterolisthesis. No acute bony abnormality. Reviewed, Interpreted and Dictated by Yaron Lyon MD Transcribed by Elissa Coronado Authenticated by Yaron Lyon MD on 12/21/2021 12:03:[address] [facility] [place] Image(s): Shoulder Image Reviewed: Yes I reviewed the patient's radiology image, Yes I have reviewed radiologist's interpretation Preliminar
[2021-12-21 12:47] VITALS: BP 178/70; PULSE 101; RESP 20; TEMP 36.6
== END 2021-12-21 12:47 | disposition home or self-care (01) ==
PROVIDERS: Emergency Provider Nurse Practitioner Family; PCP Family Medicine
DX: M43.6 Torticollis (principal); S46.812A Strain of other muscles, fascia and tendons at shoulder and upper arm level, left arm, initial encounter
CPT/HCPCS: G0463; 72040; 73030; 96372; 99202

== ENCOUNTER 2021-12-25 22:00 | Emergency (ER) | payer MEDICARE, SELFPAY ==
--- NOTE | 2021-12-25 21:59 | ECG_ITS ---
APPROVED REPORT Exam: Resting ECG HR:78 bpm ECG Measurements Heart Rate 78 AXES VT 158 P 72 QRSd 91 QRS 46 QT 375 T 80 QTc 409 Conclusion SINUS RHYTHM Old anteroseptal changes ABNORMAL ECG UNCONFIRMED REPORT Electronically signed by : Joby Newton MD 12/26/2021 08:29:35
[2021-12-25 22:00] VITALS: BP 148/63; PULSE 77; RESP 15; TEMP 36.4; O2SAT 95; BMI 21.9
[2021-12-25 22:30] VITALS: BP 148/63; PULSE 73; RESP 14; O2SAT 95
[2021-12-25 23:01] VITALS: BP 118/61; PULSE 73; RESP 17; O2SAT 93
--- NOTE | 2021-12-25 23:03 | HMH.EDNECK ---
ED Disposition Clinical Impression: Cervical radiculopathy Disposition: Home, Self-Care Condition on Discharge: Good Instructions: DI for Neck Pain Additional Instructions: see pcp for follow up Referrals: Kb Atkins MD [Primary Care Provider] - - Critical Care Critical Care Time: No Attestation: On 12/25/21, the high probability of a clinically significant, sudden or life threatening deterioration of the following system(s) required my full and direct attention, intervention and personal management. The time I documented below is in addition to time spent performing reported procedures but includes the following listed in this critical care notation. Medical Decision Making - Medical Records Medical records reviewed: Yes: I reviewed the patient's medical records. - Oscar Inquiry Pt receiving controlled substance: No Vital Signs: 12/25/21 22:00 Temperature 97.6 F Temperature Source Oral Pulse Rate [Left] 77 Respiratory Rate 15 Blood Pressure [Right Arm] 148/63 H Blood Pressure Mean [Right Arm] 91 02 Sat by Pulse Oximetry 95 Oxygen Delivery Method Nasal Cannula Oxygen Flow Rate (LPM) 2 - Lab Data Lab results reviewed: Yes: I reviewed the patient's lab results. Lab Results 12/26/21 00:36: WBC 11.6 H, RBC 4.39, Hgb 13.2, Hct 39.9, MCV 90.9, MCH 30.0, MCHC 33.0, RDW 13.7, Plt Count 272, MPV 7.5, Neut % (Auto) 70.9, Lymph % (Auto) 21.5, [place] % (Auto) 5.7, Eos % (Auto) 1.4, Baso % (Auto) 0.4, Neut # (Auto) 8.2 H, Lymph # (Auto) 2.5, [place] # (Auto) 0.7, Eos # (Auto) 0.2, Baso # (Auto) 0.1 12/26/21 00:36: Sodium 134 L, Potassium 4.1, Chloride 103, Carbon Dioxide 28, Anion Gap 7.1, BUN 33 H, Creatinine 0.70, Estimated Creat Clear 36, Estimated GFR 80, Est GFR ( Amer) 96, Glucose 261 H, Calcium 9.2 02 00:36: ESR 32 H Result diagrams: 12/26/21 00:36 12/26/21 00:36 Orders (Tests/Meds): ED MEDICATIONS Discontinued Medications Generic Name Dose Route Start Last Admin Trade Name Cecilia PRN Reason Stop Dose Admin Ketorolac Tromethamine 30 mg 12/25/21 22:56 12/25/21 22:59 Ketorolac 30mg/Ml Vial IV 12/25/21 22:57 30 mg ONCE ONE Administration Methylprednisolone Sodium Succinate 125 mg 12/25/21 22:56 12/25/21 22:59 Methylprednisolone Sod Succ 125mg Vial IV 12/25/21 22:57 125 mg ONCE ONE Administration - CT Data CT Scan: Head, C-Spine Time Received: :[address] Reviewed: Yes: I have viewed the radiologist's interpretation Preliminary Findings: Abnormal, No Fracture Seen - ECG Data Tracing #1 Normal Sinus Rhythm: Yes Ischemic changes: non-specific ST-T wave changes Medical Decision Narrative: has ongoing pain with changes on ct but no fx and labs ok Neck Pain/Injury HPI - General Chief Complaint: Neck Pain/Injury Stated Complaint: n/v dizziness, neck pain Time Seen by Provider: 12/25/21 22:30 Mode of Arrival: EMS Source of Information: Patient, EMS, Medical Record Limitations: No Limitations Description of Symptoms (Recalled from ER Triage Doc. by RN): pt reports to have had a incident with a pulled muscle in the neck tuesday was seen and treated at the [facility] and is taking prednisone and muscle relaxers from that visit. pt reports tonight she has seemed to do something else to it and the pain is now 10/10 stationary and more intense with movement - History of Present Illness HPI Narrative: pt has tenderness to lt neck w/o fever or trauma - pt reports pain has been going on for a month - pt was seen in [facility] recently - no focal neuro sx - MD complaint: neck pain Onset (ago): day(s) Place: home Severity: moderate, similar to prior neck pain Associated symptoms: none Treatments prior to arrival: other (steroids ) - Related Data Home Medications Medication Instructions Recorded Confirmed Rivaroxaban [Xarelto 20mg Tablet*] 20 mg PO DAILY 04/22/18 09/09/21 Sitagliptin Phosphate [Januvia 100 mg PO DAILY 04/22/18 09/09/21 100mg tablet]
--- NOTE | 2021-12-25 23:14 | CT_ITS ---
PROCEDURE INFORMATION: Exam: CT Cervical Spine Without Contrast Exam date and time: 12/25/2021 11:14 PM Age: 86 years old Clinical indication: Neck pain TECHNIQUE: Imaging protocol: Computed tomography images of the cervical spine without contrast. Radiation optimization: All CT scans at this facility use at least one of these dose optimization techniques: automated exposure control; mA and/or kV adjustment per patient size (includes targeted exams where dose is matched to clinical indication); or iterative reconstruction. COMPARISON: CR XR CERVICAL SPINE 3V 12/21/2021 10:50 AM FINDINGS: Bones/joints: No acute fracture. Incomplete closure of C1 ring, normal variant. Probable small hemangioma within C4 vertebral body. Retrolisthesis of C5 on C6. Facet osteoarthrosis within mid cervical spine. Facet osteoarthrosis within upper thoracic spine. Discs/Spinal canal/Neural foramina: Mild to moderate degenerative disc disease at C4-C5, C6-C7 levels. Severe degenerative disc disease at C5-C6 level. Moderate central canal stenosis at C4-C5, C5-C6 levels. Neuroforaminal narrowing at C3-C4, C4-C5, C5-C6, C6-C7 levels. Lungs: Mild bullous changes within lung apices. Vasculature: Atherosclerotic disease of visualized arteries. Soft tissues: Unremarkable. IMPRESSION: No fracture. If symptoms persist, consider MRI.
--- NOTE | 2021-12-25 23:14 | CT_ITS ---
PROCEDURE INFORMATION: Exam: CT Head Without Contrast Exam date and time: 12/25/2021 11:14 PM Age: 86 years old Clinical indication: Headache and other: Neck pain; Headache not specified TECHNIQUE: Imaging protocol: Computed tomography of the head without contrast. Radiation optimization: All CT scans at this facility use at least one of these dose optimization techniques: automated exposure control; mA and/or kV adjustment per patient size (includes targeted exams where dose is matched to clinical indication); or iterative reconstruction. COMPARISON: No relevant prior studies available. FINDINGS: Brain: Moderate atrophy. No intracranial hemorrhage. No mass. Multiple scattered foci of decreased attenuation within periventricular/subcortical white matter. No definite edema. Cerebral ventricles: No hydrocephalus. Paranasal sinuses: No acute sinusitis. Mastoid air cells: No significant effusion. Orbital cavity: Unremarkable as visualized. Vasculature: Atherosclerotic disease of intracranial arteries. Bones/joints: No acute fracture. Degenerative changes of LEFT temporomandibular joint. Soft tissues: Unremarkable. IMPRESSION: Probable chronic microvascular ischemic changes. If symptoms persist, consider MRI.
[2021-12-25 23:58] VITALS: BP 131/60; PULSE 66; RESP 16; O2SAT 92
[2021-12-26] VITALS (8 sets, daily range): BP systolic 121–140; BP diastolic 48–68; PULSE 65–80; RESP 12–19; TEMP 36.7; O2SAT 89–96
[2021-12-26 00:44] LABS: Basophils # 0.1 K/mm3 (0-0.2); Basophils % 0.4 % (0.1-2.0); Eosinophils # 0.2 K/mm3 (0.0-0.4); Eosinophils % 1.4 % (0.1-12.0); Hematocrit 39.9 % (37.0-47.0); Hemoglobin 13.2 g/dL (12.2-16.2); Lymphocytes # 2.5 K/mm3 (0.7-4.5); Lymphocytes % 21.5 % (10-50); Mean Corpuscular Volume 90.9 fl (81-99); Mean Platelet Volume 7.5 fl (7.4-10.4); Monocytes # 0.7 K/mm3 (0.1-1.0); Monocytes % 5.7 % (1.7-9.3); Neutrophils # 8.2 K/mm3 (1.8-7.8); Neutrophils % 70.9 % (37.0-80.0); Platelet Count 272 K/mm3 (142-424); Red Blood Count 4.39 M/mm3 (4.20-5.40); Red Cell Distribution Width 13.7 % (11.5-17.5); White Blood Count 11.6 K/mm3 (4.8-10.8)
[2021-12-26 00:51] LABS: Anion Gap 7.1 mEq/L (5-15); Blood Urea Nitrogen 33 mg/dl (7-17); Calcium 9.2 mg/dl (8.4-10.2); Carbon Dioxide 28 mmol/L (22.0-30.0); Chloride 103 mmol/L (98-107); Creatinine Clearance Estimated 36 mL/min (50-200); Estimated Glomerular Filt Rate 80 ml/min (>60); GFR (African American) 96 ML/MIN (>60); Glucose 261 mg/dl (74-100); Potassium 4.1 mmoL/L (3.5-5.1); Sodium 134 mmol/L (136-145)
[2021-12-26 01:10] LABS: Erythrocyte Sedimentation Rate 32 mm/hr (0-30)
--- NOTE | 2021-12-26 02:24 | PC.NURSE ---
phone call to patients daughter, no answer at this time, will continue to try to reach daughter
--- NOTE | 2021-12-26 03:22 | PC.NURSE ---
assisted patient to bathroom, assisted back to bed
--- NOTE | 2021-12-26 03:36 | PC.NURSE ---
pt laying on left side in bed asleep.
== END 2021-12-26 05:47 | disposition home or self-care (01) ==
PROVIDERS: Emergency Provider Emergency Medicine; PCP Family Medicine
DX: M54.12 Radiculopathy, cervical region (principal); R42 Dizziness and giddiness
CPT/HCPCS: 70450; 72125; 80048; 85025; 85651; 93005; 96374; 96375; 99282; 99284

== ENCOUNTER → 2022-01-08 09:57 | Outpatient (CLI) | payer MEDICARE, SELFPAY | PROVIDERS: Visit Provider Urology | DX: Z85.51 Personal history of malignant neoplasm of bladder (principal); Z01.812 Encounter for preprocedural laboratory examination; Z11.52 Encounter for screening for COVID-19 | CPT/HCPCS: C9803; U0003; U0005 ==

== ENCOUNTER 2022-01-11 08:22 | Day surgery (SDC) | payer MEDICARE, SELFPAY ==
[2022-01-11 09:01] VITALS: BP 127/86; PULSE 84; RESP 18; TEMP 37.2; O2SAT 96; BMI 21.7
[2022-01-11 10:00] VITALS: BP 137/66; PULSE 74; RESP 18; TEMP 36.1; O2SAT 96
--- NOTE | 2022-01-11 10:07 | HMH.OPNOTE ---
Date of procedure: 01/11/22 Pre-op Diagnosis:: History of bladder cancer Post-op Diagnosis:: History of bladder cancer without recurrence today Procedure performed:: Surveillance cystoscopy Surgeon:: Ross Acuna MD Anesthesia: local Estimated blood loss (mL): 0 Clinical Note:: Patient is an 86-year-old white female with a history of bladder cancer. She presents today for her yearly surveillance cystoscopy. She denies any gross hematuria. She does continue to smoke about 25 cigarettes a day. Operative findings:: No evidence of bladder cancer. Operative note:: Patient taken to the cystoscopy suite after informed consent was obtained. On the stretcher she was placed into the frog-leg position and prepped and draped in the standard surgical fashion. 2% lidocaine placed into the urethra and after 5 minutes the flexible cystoscope introduced into the urethral meatus. Passed into the bladder and the bladder examined in a systematic fashion. There was no evidence of recurrent bladder tumors, stones, diverticula, trabeculation. The ureteral orifices in their normal anatomic position with clear efflux of urine. Scope was retroflexed showing no evidence of bladder neck abnormalities. The scope then removed. The patient tolerated procedure well there were no complications. We discussed the findings and we will see her back in 1 year for cystoscopy. We did discuss trying to cut back on her cigarette use. Condition: stable Disposition: same day Specimens:: None Complications:: None
[2022-07-29 10:57] LABS: POC Glucose,Bedside 235 (70-110)
== END 2022-01-11 10:00 | disposition home or self-care (01) ==
LOC: OUTP 08:24
PROVIDERS: PCP Family Medicine; Visit Provider Urology
DX: Z09 Encounter for follow-up examination after completed treatment for conditions other than malignant neoplasm (principal); Z85.51 Personal history of malignant neoplasm of bladder; J44.9 Chronic obstructive pulmonary disease, unspecified; E11.9 Type 2 diabetes mellitus without complications; I10 Essential (primary) hypertension; Z90.49 Acquired absence of other specified parts of digestive tract; I48.91 Unspecified atrial fibrillation; Z88.1 Allergy status to other antibiotic agents; Z88.7 Allergy status to serum and vaccine; Z88.8 Allergy status to other drugs, medicaments and biological substances
CPT/HCPCS: 52000; 82962

== ENCOUNTER 2022-02-05 10:24 | Emergency (ER) | payer MEDICARE, SELFPAY ==
[2022-02-05 10:47] VITALS: BP 146/65; PULSE 81; RESP 18; TEMP 36.7; O2SAT 96; BMI 23.2
--- NOTE | 2022-02-05 10:50 | PC.NURSE ---
pts daughter is demanding of certain treatment for her mother. pts daughter is yelling at staff and rude.
--- NOTE | 2022-02-05 11:08 | HMH.EDUTC ---
[facility] [place] Disposition Clinical Impression: Low back pain Qualifiers: Chronicity: unspecified Back pain laterality: bilateral Sciatica presence: with sciatica Sciatica laterality: bilateral sciatica Qualified Code(s): M54.42 - Lumbago with sciatica, left side; M54.41 - Lumbago with sciatica, right side Disposition: Home, Self-Care Condition on Discharge: Good Instructions: Low Back Pain, DI for Low Back Pain, DI for Chronic Pain -- Adult Additional Instructions: *Ibuprofen maryuri 6 hours with meal as needed for pain/inflammation *Remember you had a Toradol shot in the clinic today, which is similar to Motrin *Not additional anti-inflammatory like motrin, aleve, advil with the above amount of ibuprofen. You can still take Tylenol every 4 hours as needed if you need something else for pain *Ice 20 minutes every 2 hours for the first 48 hours after the initial injury followed by moist heat every 20 minutes 3-4 times a day to affected area *Muscle relaxer every 12 hours as needed for muscle spasms but remember, it WILL cause drowsiness You cannot take it and drive, operate machinery or care for small children. *Keep this area active, no movement leads to more stiffness, However take it easy and avoid heavy lifting pushing or pulling *Follow up with you family doctor if no improvement for further treatment Prescriptions: methocarbamoL [Methocarbamol 500mg Tablet] 500 mg PO Q8HP PRN #20 tab PRN Reason: Muscle Spasm Transmission Status: Received by [facility] Referrals: Kb Atkins MD [Primary Care Provider] - As needed Time of Disposition: 11:17 Medical Decision Making - Oscar Inquiry Pt receiving controlled substance: No Oscar was queried for this patient: No Vital Signs: 02/05/22 10:47 02/05/22 11:22 Temperature 98.1 F 98.1 F Temperature Source Oral Pulse Rate 81 Pulse Rate [Left] 81 Respiratory Rate 18 18 Blood Pressure 146/65 H Blood Pressure [Right Arm] 146/65 H Blood Pressure Mean [Right Arm] 92 02 Sat by Pulse Oximetry 96 Orders (Tests/Meds): ED MEDICATIONS Discontinued Medications Generic Name Dose Route Start Last Admin Trade Name Freq PRN Reason Stop Dose Admin Ketorolac Tromethamine 30 mg 02/05/22 11:11 02/05/22 11:18 Ketorolac 60mg/2ml Vial IM 02/05/22 11:12 30 mg ONCE ONE Administration Methylprednisolone Sodium Succinate 125 mg 02/05/22 11:11 02/05/22 11:15 Methylprednisolone Sod Succ 125mg Vial IM 02/05/22 11:12 125 mg ONCE ONE Administration Medical Decision Narrative: Recommended xray of lspine and patient refused [facility] HPI - General Stated complaint: Hips and Legs Hurting Time Seen by Provider: 02/05/22 11:08 Mode of Arrival: Wheelchair Source of Information: Patient Limitations: No Limitations Description of Symptoms (Recalled from Triage Doc. by RN): pt c/o not being able to move or walk x1mo. pt b/o lower back and hip pain. pts daughter states she needs a pain shot, muscle shot and steroids. HEENT Symptoms (Recalled from RN notes): No Resp Symptoms (Recalled from RN notes): No Skin Symptoms (Recalled from RN notes): No MS Symptoms (Recalled from RN notes): Yes Functional Status (Recalled from RN notes): wnl - History of Present Illness Provider Complaint: Patient states that she has chronic back pain that goes into both hips States that she has low back problems and sometimes has to come in and get a couple shots to help it States that today she was still hurting so she came in Denies loss of control of bowel or bladder - Related Data Home Medications Medication Instructions Recorded Confirmed Rivaroxaban [Xarelto 20mg Tablet*] 20 mg PO DAILY 04/22/18 01/11/22 Sitagliptin Phosphate [Januvia 100 mg PO DAILY 04/22/18 01/11/22 100mg tablet] dilTIAZem HCl [Diltiazem 240mg 240 mg PO DAILY 08/13/18 01/11/22 24Hr ER Cap] Ascorbic Acid [Vitamin C] 1,000 mg PO DAILY 01/24/20 01/11/22 Cholecalciferol (Vitamin D3) 3,000 unit P
[2022-02-05 11:22] VITALS: BP 146/65; PULSE 81; RESP 18; TEMP 36.7
== END 2022-02-05 11:44 | disposition home or self-care (01) ==
PROVIDERS: Emergency Provider Nurse Practitioner; PCP Family Medicine
DX: M54.41 Lumbago with sciatica, right side (principal); M54.42 Lumbago with sciatica, left side; I48.0 Paroxysmal atrial fibrillation; J44.9 Chronic obstructive pulmonary disease, unspecified; E11.9 Type 2 diabetes mellitus without complications; I10 Essential (primary) hypertension; F17.210 Nicotine dependence, cigarettes, uncomplicated; Z88.2 Allergy status to sulfonamides; Z88.7 Allergy status to serum and vaccine
CPT/HCPCS: 96372; 99212; G0463

== ENCOUNTER 2022-02-08 13:46 | Emergency (ER) | payer MEDICARE, SELFPAY ==
[2022-02-08 13:47] VITALS: BP 142/78; PULSE 74; RESP 16; TEMP 36.9; O2SAT 98; BMI 21.7
[2022-02-08 13:58] VITALS: BMI 21.7
--- NOTE | 2022-02-08 13:59 | XR_ITS ---
FINAL REPORT CLINICAL HISTORY: WEAKNESS COMPARISON: September 08, 2021 FINDINGS: The heart size is normal. The mediastinum is normal. There are chronic changes in the lung bases. There is no focal infiltrate or edema. There are no pleural effusions. There is no pneumothorax. There is no osseous abnormality. IMPRESSION: No acute cardiopulmonary process Reviewed, Interpreted and Dictated by Yaron Lyon MD Transcribed by Cornelio Hay Authenticated by Yaron Lyon MD on 02/08/2022 04:17:19 PM [facility]
--- NOTE | 2022-02-08 14:02 | CT_ITS ---
FINAL REPORT TECHNIQUE: Axial CT images were performed through the head. Coronal reformatted images were submitted. This study was performed with techniques to keep radiation doses as low as reasonably achievable (ALARA). Individualized dose reduction techniques using automated exposure control or adjustment of mA and/or kV according to the patient's size were employed. CLINICAL HISTORY: WEAKNESS, VERTIGO, DIZZINESS COMPARISON: December 25, 2021 FINDINGS: There are mild changes of atrophy. There are extensive changes of chronic microvascular ischemia. The ventricles are normal in size. There is no evidence of hemorrhage. There is no mass or edema identified. There is no abnormal extra-axial fluid seen. The sinuses are well aerated. IMPRESSION: Extensive changes of chronic microvascular ischemia. No acute intracranial process. Reviewed, Interpreted and Dictated by Yaron Lyon MD Transcribed by Cornelio Hay Authenticated by Yaron Lyon MD on 02/08/2022 04:17:17 PM [facility]
[2022-02-08 14:08] LABS: POC Glucose,Bedside 214 (70-110)
--- NOTE | 2022-02-08 14:08 | HMH.EDGENADL ---
ED Disposition Clinical Impression: Vertigo, Ataxia Disposition: Home, Self-Care Condition on Discharge: Fair Additional Instructions: Please be sure to be compliant with your anticoagulation medication or a blood thinner. Take your Xarelto as prescribed. Additionally, you have been given medication for your cholesterol. I have arranged a follow-up with [facility] stroke team for concern of possible stroke. Please follow-up with them on an outpatient basis this upcoming week. If your condition worsens or any other concerns arise, please return to the emergency department for reassessment. Prescriptions: Atorvastatin Calcium [Lipitor 40mg Tablet*] 40 mg PO HS #30 tab Transmission Status: Received by [email or web address] Referrals: Kb Atkins MD [Primary Care Provider] - - Critical Care Critical Care Time: Yes Attestation: On 02/08/22, the high probability of a clinically significant, sudden or life threatening deterioration of the following system(s) required my full and direct attention, intervention and personal management. The time I documented below is in addition to time spent performing reported procedures but includes the following listed in this critical care notation. Vital system(s) involved:: Central Nervous System My critical care processes included: Assessment & monitoring of V/S, Initial and Re-exams, Data Review/Interpretation, Coordinating Care, Medication Orders and management, Documentation Medical Decision Making - Medical Records Medical records reviewed: Yes: I reviewed the patient's medical records. - Oscar Inquiry Pt receiving controlled substance: No Vital Signs: 02/08/22 13:47 02/08/22 16:15 02/08/22 16:30 Temperature 98.4 F Temperature Source Oral Pulse Rate 62 62 Pulse Rate [Radial] 74 Respiratory Rate 16 16 16 Blood Pressure 107/52 L 125/58 L Blood Pressure [Right Arm] 142/78 H Blood Pressure Mean 81 80 Blood Pressure Mean [Right Arm] 99 Blood Pressure Position [Right Arm] Sitting 02 Sat by Pulse Oximetry 98 96 96 Oxygen Delivery Method Room Air 02/08/22 17:00 02/08/22 17:30 02/08/22 19:15 Temperature 98 F Temperature Source Oral Pulse Rate 60 64 69 Pulse Rate [Radial] Respiratory Rate 16 16 16 Blood Pressure 137/58 L 123/73 145/74 H Blood Pressure [Right Arm] Blood Pressure Mean 88 81 Blood Pressure Mean [Right Arm] Blood Pressure Position [Right Arm] 02 Sat by Pulse Oximetry 97 99 Oxygen Delivery Method Room Air - Lab Data Lab results reviewed: Yes: I reviewed the patient's lab results. Lab Results 02/08/22 14:01: POC Glucose 214 H 02/08/22 14:10: WBC 7.4, RBC 4.52, Hgb 13.8, Hct 42.3, MCV 93.4, MCH 30.4, MCHC 32.6, RDW 13.9, Plt Count 292, MPV 8.2, Neut % (Auto) 57.1, Lymph % (Auto) 30.7, [place] % (Auto) 8.2, Eos % (Auto) 2.0, Baso % (Auto) 2.0, Neut # (Auto) 4.2, Lymph # (Auto) 2.3, [place] # (Auto) 0.6, Eos # (Auto) 0.2, Baso # (Auto) 0.2 02/08/22 14:10: Sodium 138, Potassium 3.8, Chloride 106, Carbon Dioxide 26, Anion Gap 9.8, BUN 24 H, Creatinine 0.70, Estimated Creat Clear 36, Estimated GFR 80, Est GFR ( Amer) 96, Glucose 230 H, Calcium 8.8, Troponin I < 0.01 02/08/22 14:10: Magnesium 1.8 02/08/22 14:29: Urine Color Yellow, Urine Appearance Clear, Urine pH 6.0, Ur Specific [place] <= 1.005, Urine Protein Negative, Urine Glucose (UA) 3+, Urine Ketones Negative, Urine Blood Negative, Urine Nitrate Negative, Urine Bilirubin Negative, Urine Urobilinogen 0.2, Ur Leukocyte Esterase Negative, Urine RBC None, Urine WBC Occasional, Ur Squamous Epith Cells None, Urine Bacteria None 02/08/22 18:00: Troponin I < 0.01 Result diagrams: 02/08/22 14:10 02/08/22 14:10 Orders (Tests/Meds): ED MEDICATIONS Discontinued Medications Generic Name Dose Route Start Last Admin Trade Name Freq PRN Reason Stop Dose Admin Iopamidol 100 ml 02/08/22 15:13 02/08/22 15:14 Iopamidol-370 (76%);100ml Bottle IV 02/08/22
--- NOTE | 2022-02-08 14:09 | ECG_ITS ---
APPROVED REPORT Exam: Resting ECG HR:72 bpm ECG Measurements Heart Rate 72 AXES AR 200 P 55 QRSd 89 QRS 28 QT 412 T 78 QTc 437 Conclusion SINUS RHYTHM Old anteroseptal changes ABNORMAL ECG UNCONFIRMED REPORT Electronically signed by : Joby Newton MD 02/08/2022 15:56:46
[2022-02-08 14:24] LABS: Basophils # 0.2 K/mm3 (0-0.2); Eosinophils # 0.2 K/mm3 (0.0-0.4); Hematocrit 42.3 % (37.0-47.0); Hemoglobin 13.8 g/dL (12.2-16.2); Lymphocytes # 2.3 K/mm3 (0.7-4.5); Lymphocytes % 30.7 % (10-50); Mean Corpuscular HGB Conc 32.6 g/dL (31.8-35.4); Mean Corpuscular Hemoglobin 30.4 pg (27.0-31.2); Mean Corpuscular Volume 93.4 fl (81-99); Mean Platelet Volume 8.2 fl (7.4-10.4); Monocytes # 0.6 K/mm3 (0.1-1.0); Monocytes % 8.2 % (1.7-9.3); Neutrophils # 4.2 K/mm3 (1.8-7.8); Neutrophils % 57.1 % (37.0-80.0); Platelet Count 292 K/mm3 (142-424); Red Blood Count 4.52 M/mm3 (4.20-5.40); Red Cell Distribution Width 13.9 % (11.5-17.5); White Blood Count 7.4 K/mm3 (4.8-10.8)
--- NOTE | 2022-02-08 14:28 | CT_ITS ---
FINAL REPORT TECHNIQUE: Thin section axial CT with contrast with multiplanar reconstruction. CLINICAL HISTORY: vertigo, ataxia FINDINGS: CTA HEAD No aneurysm is seen. Major intracranial vessels are patent without significant stenosis. . IMPRESSION: Unremarkable intracranial vessels Reviewed, Interpreted and Dictated by Yaron Lyon MD Transcribed by Elissa Coronado Authenticated by Yaron Lyon MD on 02/08/2022 04:17:20 PM [facility]
--- NOTE | 2022-02-08 14:28 | CT_ITS ---
FINAL REPORT CLINICAL HISTORY: vertigo, ataxia FINDINGS: CTA NECK Thin section axial CT with contrast with multiplanar reconstruction NASCET criteria and technique was utilized during interpretation. There is scarring or fibrosis at the lung bases. Small nodules are seen in the thyroid likely due to small adenomas. Aortic arch: There is dense vascular calcification within the aortic arch. Right carotid: No significant stenosis is seen of the cervical common or internal carotid artery . Left carotid: There is high-grade, focal stenosis of the proximal left ICA seen on image 66 of series 3. Vertebrals: Left vertebral artery is dominant. No significant stenosis is present . IMPRESSION: Focal, high-grade stenosis of the proximal left internal carotid artery. Reviewed, Interpreted and Dictated by Yaron Lyon MD Transcribed by Elissa Coronado Authenticated by Yaron Lyon MD on 02/08/2022 04:17:19 PM [facility]
[2022-02-08 14:36] LABS: Anion Gap 9.8 mEq/L (5-15); Blood Urea Nitrogen 24 mg/dl (7-17); Calcium 8.8 mg/dl (8.4-10.2); Carbon Dioxide 26 mmol/L (22.0-30.0); Chloride 106 mmol/L (98-107); Creatinine Clearance Estimated 36 mL/min (50-200); Estimated Glomerular Filt Rate 80 ml/min (>60); GFR (African American) 96 ML/MIN (>60); Glucose 230 mg/dl (74-100); Potassium 3.8 mmoL/L (3.5-5.1); Sodium 138 mmol/L (136-145)
[2022-02-08 14:40] LABS: Magnesium 1.8 mg/dl (1.6-2.3)
[2022-02-08 14:52] LABS: Troponin I < 0.01 ng/ml (0.00-0.034)
[2022-02-08 16:15] VITALS: BP 107/52; PULSE 62; RESP 16; O2SAT 96
[2022-02-08 16:18] LABS: Microscopic, Urine URINE MICROSCOPIC (MICROSCOPIC)
[2022-02-08 16:20] LABS: Appearance,Urine CLEAR (Clear); Bilirubin,Urine Negative (Negative); Blood, Urine Negative (Negative); Color,Urine YELLOW (Yellow); Glucose,Urine (UA) 3+ (Negative); Ketones,Urine Negative (Negative); Leukocyte Esterase,Urine Negative (Negative); Nitrate,Urine Negative (Negative); Protein,Urine Negative (Negative); Specific Gravity, Urine <= 1.005 (1.005-1.030); Urobilinogen,Urine 0.2 EU/dl (0.2)
--- NOTE | 2022-02-08 16:25 | PC.NURSE ---
ASSESSED PT AT THIS TIME. NO NEW NEEDS
[2022-02-08 16:30] VITALS: BP 125/58; PULSE 62; RESP 16; O2SAT 96
[2022-02-08 17:00] VITALS: BP 137/58; PULSE 60; RESP 16; O2SAT 97
[2022-02-08 17:30] VITALS: BP 123/73; PULSE 64; RESP 16; O2SAT 99
[2022-02-08 17:34] LABS: WBC,Urine Occasional #/hpf (0-3)
--- NOTE | 2022-02-08 17:58 | PC.NURSE ---
[facility] called for Neuro awaiting for Dr Ely to return call.
--- NOTE | 2022-02-08 18:20 | PC.NURSE ---
Dr Orosco speaking with [facility]
--- NOTE | 2022-02-08 18:31 | PC.NURSE ---
Sukumar troponin and checked on patient.
[2022-02-08 18:37] LABS: Troponin I < 0.01 ng/ml (0.00-0.034)
[2022-02-08 19:15] VITALS: BP 145/74; PULSE 69; RESP 16; TEMP 36.6; O2SAT 98
== END 2022-02-08 19:16 | disposition home or self-care (01) ==
PROVIDERS: Emergency Provider Emergency Medicine; PCP Family Medicine
DX: R42 Dizziness and giddiness (principal); I48.0 Paroxysmal atrial fibrillation; J44.9 Chronic obstructive pulmonary disease, unspecified; Z86.73 Personal history of transient ischemic attack (TIA), and cerebral infarction without residual deficits; I10 Essential (primary) hypertension; E11.9 Type 2 diabetes mellitus without complications; Z85.51 Personal history of malignant neoplasm of bladder; F17.210 Nicotine dependence, cigarettes, uncomplicated; Z79.899 Other long term (current) drug therapy
CPT/HCPCS: 70450; 70496; 70498; 71045; 80048; 81001; 82962; 83735; 84484; 85025; 93005; 99284; Q9967